=== PATIENT | male | born 1960 | race Caucasian/White ===

== ENCOUNTER 2018-03-01 00:05 | Inpatient (IN) | payer OTHER, SELFPAY ==
[2018-03-01] VITALS (30 sets, daily range): BP systolic 117–149; BP diastolic 79–102; PULSE 10–143; RESP 16–38; TEMP 36.4–37.4; O2SAT 66–96; BMI 27.3; BMI 26.7; BMI 26.8
--- NOTE | 2018-03-01 00:21 | EKG12_ITS ---
Test Reason : HIGH RR/SOB Blood Pressure : / mmHG Vent. Rate : 125 BPM Atrial Rate : 125 BPM P-R Int : 132 ms QRS Dur : 090 ms QT Int : 320 ms P-R-T Axes : 049 -18 027 degrees QTc Int : 461 ms Sinus tachycardia Otherwise normal ECG Confirmed by ANN GROVE, TIARA ([id number]), non linear editor MAURY HURTADO ([id number] on 03/03/2018 4:02:38 PM Referred By: ROBBIE Confirmed By:TIARA JUAREZ MD
--- NOTE | 2018-03-01 00:21 | RAD_ITS ---
STUDY: X-RAY CHEST REASON FOR EXAM: Male, 58 years old. Dyspnea TECHNIQUE: Single AP portable view of the chest. COMPARISON: None. FINDINGS: Diffuse reticular interstitial opacities are seen in both lungs more prominent in the lower lobes consistent with chronic interstitial lung disease. There is no demonstrated pleural abnormality. Normal size heart. Normal mediastinum and marjan. Normal visualized pulmonary arteries. Normal visualized aortic arch and descending thoracic aorta. Normal visualized thoracic spine. There is degenerative osteoarthritis of the bilateral shoulders. There is no demonstrated abnormality of the visualized soft tissue structures of the upper abdomen. RAD/Chest 1 View (Portable) IMPRESSION: Chronic interstitial lung disease. Electronically Signed: Brielle Hutchinson MD at 1:51 EDT Tel , Service support ,
--- NOTE | 2018-03-01 00:23 | ED.VISSUMM ---
- ER Visit Summary Date of Service: 03/01/18 Chief Complaint: Shortness of breath History of Present Illness: The patient is a 58 M 3 of COPD he is not on any home O2. He said he just recently quit smoking. And he has been increasingly short of breath the last 3 days since Thursday with the hot humid weather that we have been having. He denies any hemoptysis. He has never had a DVT or PE. He denies any recent travel, surgery, mobilization. He denies any leg pain or swelling. Denies any cardiac history. He has had no fever. Physical Examination: Middle-aged male mild to moderate respiratory distress. Vital signs stable blood pressure 149/89 afebrile. His O2 sat on room air was 66% with obvious significant hypoxia. Her rate was 143 and respiratory rate was 38. He is awake alert and talking however. HEENT exam unremarkable. Neck nontender. Trachea midline. No lymphadenopathy. No subcu air. Lungs coarse breath sounds bilaterally. Equal symmetrical. Expiratory wheezing throughout. Heart tachycardic rate about 140 no murmur. Chest wall is nontender. No subcu air or crepitance. Abdomen is soft and nontender. Normal bowel sounds no peritoneal signs. He is moving all 4 extremities. They are neurovascularly intact. Calves are nontender without edema or cords. Neurologically is awake and alert with no focal motor deficits. Test Results: [Chest x-ray shows a right lower lobe pneumonia. Chronic changes also consistent with COPD. Normal cardiac silhouette this is read by myself. Formal radiologist interpretation pending. EKG sinus tachycardia rate of 125. No acute signs of MS. His white count elevated 18,000 normal hemoglobin. No bands. Electrolytes are unremarkable. Creatinine is 1.38. Troponin is elevated 0.193 which may be secondary to hypoxia versus underlying cardiac etiology. Emergency Department Course and Treatment: Middle-age male is hypoxic with COPD history. He will be treated with IV Solu-Medrol and multiple DuoNeb and albuterol aerosols. Treatment Plan: We started on IV Rocephin and Zithromax for community-acquired pneumonia. He will be admitted to the hospital the hospitalist. I have already spoken to Dr. Fall. Patient has been made aware of the plan and all his test results. Disposition: Admission Impression: Acute dyspnea with hypoxia secondary to acute right lower lobe community-acquired pneumonia Acute exacerbation COPD with hypoxia Abnormal troponin secondary to hypoxia or underlying cardiac etiology This note was generated with [employer] dictation software. It may contain incorrect words, spelling, and punctuation that were not noted in review of the chart prior to signing ED Disposition - Plan for ED Patient: Chief Complaint: Shortness of Breath Referrals: Ivet Henderson DO [Primary Care Provider] -
[2018-03-01] MEDS: MethylPREDNISolone 125 MG/2 ML Vial IV (00:27)
[2018-03-01 00:31] LABS: Absolute Neutrophil Count 14.8 X10^3/uL (2.0-7.7); Basophil# 0.03 X10^3/uL; Basophil% 0.2 % (0-1); Eosinophil# 0.05 X10^3/uL; Eosinophils% 0.3 % (0-5); Hemoglobin 14.7 g/dl (13.0-16.5); Lymphocyte % 11.6 % (19-41); Mean Corpuscular Hgb 30.9 pg (27.0-32.0); Mean Corpuscular Volume 88.4 fL (80-94); Monocyte% 5.5 % (0-10); Neutrophil # 14.82 X10^3/uL (2.7-7.7); Neutrophil % 82.2 % (47-70); Platelet Count 251 K/mm3 (150-450); RBC Distribution Width CV 14.1 % (11.6-14.6); RBC Distribution Width SD 45.3 fl (35.1-43.9); Red Blood Count 4.75 M/mm3 (4.6-6.2)
[2018-03-01] MEDS: Ipratropium/Albuterol Sulfate 3 ML AMPUL.NEB INHALATION ×5 (00:38→18:51)
[2018-03-01] MEDS: Albuterol 2.5 MG/3 ML VIAL.NEB. INHALATION ×3 (00:38→21:35)
[2018-03-01 00:44] LABS: POSITIVE COUNT NO; POSITIVE DIFFERENTIAL NO; POSITIVE MORPHOLOGY NO
[2018-03-01 00:52] LABS: Anion Gap 13 (5-15); BUN 19 mg/dL (7-18); BUN/Creat Ratio 13.8 RATIO (10-20); Chloride 102 mmol/L (98-107); Creatinine, Serum 1.38 mg/dL (0.70-1.30); EST Glomerular Filtration Rate 57 mL/min (>60); Est Glom Filt Rate - Afr Amer 69 mL/min (>60); Estimated Creatinine Clearance 61.71 ml/min; Glucose 220 mg/dL (74-106); Potassium 3.4 mmol/L (3.5-5.1); Sodium Level 138 mmol/L (136-145)
[2018-03-01] MEDS: Ceftriaxone 1 GM/50 ML BAG IV (01:59)
[2018-03-01] MEDS: 0.9% Normal Saline 1,000 ML 100 ML IV ×2 (02:52→12:34)
[2018-03-01 03:06] LABS: Hematocrit 39.3 % (40-54); Mean Corp Hgb Conc 35.6 g/gl (32-36); Mean Corpuscular Hgb 31.5 pg (27.0-32.0); Mean Corpuscular Volume 88.3 fL (80-94); Mean Platelet Vol. 11.5 fl (6.2-12.0); Platelet Count 244 K/mm3 (150-450); RBC Distribution Width CV 14.1 % (11.6-14.6); RBC Distribution Width SD 44.1 fl (35.1-43.9); Red Blood Count 4.45 M/mm3 (4.6-6.2); White Blood Count 15.3 K/mm3 (4.4-11.0)
[2018-03-01 03:08] LABS: Scan Indicated on CBC? Y/N NO
[2018-03-01 03:26] LABS: ALB/GLOB Ratio 0.6 RATIO (0.9-2.4); AST(SGOT) 49 U/L (15-37); Alanine Aminotransfer ALT/SGPT 64 U/L (16-61); Albumin, Serum 2.9 g/dL (3.2-5.0); Alkaline Phosphatase 113 U/L (45-117); Anion Gap 12 (5-15); BUN 17 mg/dL (7-18); BUN/Creat Ratio 13.5 RATIO (10-20); Calcium,Total 8.6 mg/dL (8.5-10.1); Chloride 105 mmol/L (98-107); Cholesterol 148 mg/dL (200); Creatinine, Serum 1.26 mg/dL (0.70-1.30); EST Glomerular Filtration Rate 63 mL/min (>60); Est Glom Filt Rate - Afr Amer 76 mL/min (>60); Estimated Creatinine Clearance 67.59 ml/min; Globulin 4.6 g/dL (2.2-4.2); Glucose 253 mg/dL (74-106); High Density Lipoprotein 23 mg/dL; Potassium 3.4 mmol/L (3.5-5.1); Protein, Total 7.5 g/dL (6.4-8.2); Sodium Level 140 mmol/L (136-145); Triglycerides 109 mg/dL; Very Low Density Lipoprotein 22 mg/dL (5-40)
[2018-03-01 03:36] LABS: BNP,B-Type NATRIURETIC PEPTIDE 437.5 pg/mL (0-100)
--- NOTE | 2018-03-01 04:02 | HP.PCM_ITS ---
Problem List (1) Transaminitis Status: Acute (2) CAP (community acquired pneumonia) Status: Acute (3) COPD exacerbation Status: Acute (4) Elevated troponin Status: Acute History of Present Illness Date of Admission: 03/01/18 Chief Complaint: CAP The patient is a 58 year old male w/ h/o tobacco abuse is admitted for CAP. He has been SOB x weeks. However, in the past few days, he noted worsening SOB. SOB is constant and affected his ability to care for himself. He recently quitted smoking in December 2017. He has been smoking for decades. He has minimal cough. No change in the intensity or frequency of his cough. No fever or chill. Nothing made is SOB better or worse. His SOB is not associated with any other symptoms. Past Medical History Allergies Sulfa (Sulfonamide Antibiotics) Allergy (Verified 03/01/18 00:31) Unknown Home Medications: Ambulatory Orders Medication Instructions Recorded Bupropion HCl [Wellbutrin Xl] 150 mg PO DAILY 03/01/18 Fluoxetine [Prozac] 20 mg PO BID 03/01/18 Gabapentin [Neurontin] 300 mg PO BID 03/01/18 Multivit-Min/FA/Vit K/Lycopene 1 tab PO DAILY 03/01/18 [One-A-Day Men's 50 Plus Tablet] Saw [place] 500 mg PO BID 03/01/18 Surgical History: no surgical history Lives: Alone Smoking Status: Former smoker Tobacco Use: Cigarettes Alcohol: None Drugs: None - *Family History Maternal History Items: No pertinent history Review of Systems Constitutional: Denies: Chills, Fever, Weight Change HEENT: Denies: Head Aches, Sinus Congestion, Sinus Drainage Cardiovascular: Denies: Chest Pain, Palpitations Respiratory: Reports: Cough, Shortness of Breath, Shortness of breath at rest. Denies: Sputum production Gastrointestinal: Denies: Abdominal Pain, Nausea, Vomiting Genitourinary: Denies: Dysuria Musculoskeletal: Denies: Joint Pain, Joint Tenderness Skin: Denies: Rash, Wounds Neurological: Denies: Numbness, Tingling, Focal weakness Psychiatric: Denies: Anxiety, Depression, Homicidal Ideations, Suicidal Ideations Hematologic/ Lymphatic: Denies: Easy Bruising, Easy Bleeding VTE Information - Inpt Only VTE Present on Admission: No VTE Mechan Device Prophylaxis: SCD's VTE Pharm Prophylaxis ordered?: Yes Patient Problems: Active and Suspected Problems Transaminitis (Acute) CAP (community acquired pneumonia) (Acute) COPD exacerbation (Acute) Elevated troponin (Acute) - Physical Exam General: Alert, Oriented x3, Cooperative HEENT: Atraumatic, PERRLA, EOMI, Normocephalic Neck: Supple, No JVD, Negative Carotid Bruits Lungs: Diminished, Short of Breath, Wheezes Cardiovascular: Irregular Rate, Tachycardic Abdomen: Bowel Sounds Present, Soft, Non Tender Extremities: No edema, Capillary Refill Less than 3 Seconds Skin: No rashes, No breakdown Musculoskeletal: No Tenderness to Palpation of Joints or Extremities Neurological: Cranial nerves II-XII grossly intact Psych/Mental Status: Normal Affect, Appropriate Vital Signs Temp Pulse Resp BP Pulse Ox 98.5 F 111 H 27 H 129/92 H 94 03/01/18 03:28 03/01/18 03:28 03/01/18 03:28 03/01/18 03:28 03/01/18 03:28 Oxygen Flow Rate (L/min) 6 Oxygen Delivery Method Nasal Cannula Weight: 84.6 kg Body Mass Index (BMI) 26.7 Laboratory Tests Past 24 Hrs 03/01/18 03/01/18 03/01/18 02:45 02:45 02:45 WBC 15.3 H RBC 4.45 L Hgb 14.0 Hct 39.3 L MCV 88.3 MCH 31.5 MCHC 35.6 RDW 14.1 RDW Differential 44.1 H Plt Count 244 MPV 11.5 Sodium 140 Potassium 3.4 L Chloride 105 Carbon Dioxide 23.0 Anion Gap 12 BUN 17 Creatinine 1.26 Estim Creat Clear Calc 67.59 Est GFR (MDRD) Af Amer 76 Est GFR (MDRD) Non-Af 63 BUN/Creatinine Ratio 13.5 Glucose 253 H Calcium 8.6 Total Bilirubin 0.60 AST 49 H ALT 64 H Alkaline Phosphatase 113 Troponin I B-Natriuretic Peptide 437.5 H Total Protein 7.5 Albumin 2.9 L Globulin 4.6 H Albumin/Globulin Ratio 0.6 L Triglycerides 109 Cholesterol 148 LDL Cholesterol 103 VLDL Cholesterol 22 HDL Cholesterol 23 L 03/01/18 02:45 WBC RBC Hgb Hct MCV MCH MCHC RDW RDW Differential Plt Count MPV Sodium Potassium Chloride Carbon Dioxide Anion Gap BUN Creatinine Estim Creat Clear Calc Est GFR (MDRD) Af Amer Est GFR (MDRD) Non-Af BUN/Creatinine Ratio Glucose Calcium Total Bilirubin AST ALT Alkaline Phosphatase Troponin I 0.238 H B-Natriuretic Peptide Total Protein Albumin Globulin Albumin/Globulin Ratio Triglycerides Cholesterol LDL Cholesterol VLDL Cholesterol HDL Cholesterol Assessment/Plan All Active Problems Transaminitis (Acute) CAP (community acquired pneumonia) (Acute) COPD exacerbation (Acute) Elevated troponin (Acute) 58 year old male w/ h/o tobacco abuse is admitted for CAP. 1) CAP: Chest xray disclosed chronic interstitial lung disease. Leukocytosis noted. Will start ceftriaxone and azithromycin. Will also start bronchodilators and steroid. 2) COPD exacerbation: Resume solumedrol, nebs, and ceftriaxone and azithromycin. Cultures pending. 3) Elevated trops: Probably type II [place] secondary to underlying sepsis. Will follow trops. C/w medical management. Will get utox. 4) Transaminitis: Unclear etiology. Probably perfusion mediated. Will follow level and if persistent elevated, will consider workup. Monitor. 5) Prophylaxis: SCD / heparin
[2018-03-01] MEDS: Heparin Injection (Vial) 5,000 UNIT/ML VIAL 5000 UNIT SC (05:26)
[2018-03-01] MEDS: 0.9% NaCl Peripheral Flush Adult/Peds IV ×2 (05:27→22:14)
[2018-03-01 07:06] LABS: Amphetamine Urine VISTA NEGATIVE (<1000 ng/mL); Barbiturate Urine VISTA NEGATIVE (< 200 ng/mL); Benzodiazepine Urine VISTA NEGATIVE (< 200 ng/mL); Cocaine Urine VISTA NEGATIVE (< 300 ng/mL); Ecstacy Urine VISTA POSITIVE (< 500 ng/mL); Methadone Urine VISTA NEGATIVE (< 300 ng/mL); PCP Urine VISTA NEGATIVE (< 25 ng/mL); THC Urine VISTA POSITIVE (< 50 ng/mL); Vista UDS pH Range 7
[2018-03-01] MEDS: Aspirin E.C. 81 MG Tablet PO (09:44)
[2018-03-01] MEDS: Gabapentin 300 MG Capsule PO ×2 (09:44→18:07)
[2018-03-01] MEDS: buPROPion (XL) 150 MG TABLET.XL PO (09:44)
[2018-03-01] MEDS: Carvedilol 3.125 MG TABLET PO ×2 (09:44→22:14)
[2018-03-01] MEDS: FLUoxetine 20 MG Capsule PO ×2 (09:44→22:14)
[2018-03-01] MEDS: Multivitamins,Ther W-Minerals Tablet 1 TABLET PO (09:44)
--- NOTE | 2018-03-01 11:39 | ECHOD_ITS ---
Reason For Study: CAD/ASHD Procedure This was a 2D Doppler, Color Flow transthoracic echocardiogram. Exam performed portable in patient room. Left Ventricle Normal LV size. Mild eccentric left ventricular hypertrophy. Left ventricular systolic function is normal. The estimated ejection fraction is 60 %. Transmitral and pulmonary venous doppler flow suggestive of impaired relaxation of left ventricle. Transmitral diastolic flow velocities suggest mild (stage 1) diastolic dysfunction (reversed pattern). Right Ventricle Normal RV size. Normal systolic function. Atria Normal left atrium. Normal right atrium. Mitral Valve Normal mitral valve. Tricuspid Valve Normal tricuspid valve. Mild (1+) tricuspid valve insufficiency. Pulmonary artery systolic pressure is 38 mmHg. Aortic Valve Normal aortic valve. Trisinus/trileaflet aortic valve. Pulmonic Valve Normal pulmonic valve. Great Vessels Normal aortic root. The pulmonary artery is normal size. Normal inferior vena cava. Pericardium/Pleural No pericardial effusion. MMode/2D Measurements & Calculations LVIDd: 4.2 cm IVSd: 1.4 cm Ao root diam: 4.0 cm LVIDs: 2.3 cm LVPWd: 1.0 cm LA dimension: 3.3 cm FS: 46.0 % LAV(MOD-sp4): 44.3 ml LA A4 area: 17.6 cm2 RA A4 area: 15.6 cm2 Time Measurements MV dec time: 0.14 sec Doppler Measurements & Calculations MV E max virgilio: 54.3 cm/sec MV V2 max: 161.8 cm/sec MV P1/2t max virgilio: 75.7 cm/sec MV A max virgilio: 102.8 cm/sec MV max P.5 mmHg MV P1/2t: 61.2 msec MV E/A: 0.53 MV V2 mean: 76.2 cm/sec MV dec slope: 362.0 cm/sec2 MV mean P.8 mmHg MVA(P1/2t): 3.6 cm2 MV V2 VTI: 21.2 cm Ao V2 max: 164.4 cm/sec LV V1 max: 118.7 cm/sec PA V2 max: 89.1 cm/sec Ao max P.8 mmHg LV V1 max P.6 mmHg Ao V2 mean: 109.9 cm/sec LV V1 mean P.9 mmHg Ao mean P.4 mmHg LV V1 mean: 79.3 cm/sec Ao V2 VTI: 23.7 cm LV V1 VTI: 20.4 cm TR max virgilio: 289.4 cm/sec TR max P.5 mmHg Interpretation Summary Normal LV size. Mild eccentric left ventricular hypertrophy. Left ventricular systolic function is normal. The estimated ejection fraction is 60 %. Transmitral diastolic flow velocities suggest mild (stage 1) diastolic dysfunction (reversed pattern). Pulmonary artery systolic pressure is 38 mmHg. Ordering Physician: Emily Erazo Referring Physician: [place] MURRAY Performed By: Jeff Dee RCS
[2018-03-01 12:02] LABS: Magnesium 2.1 mg/dL (1.6-2.6)
[2018-03-01 12:23] LABS: Hemoglobin A1c 5.9 % (4.2-6.3)
--- NOTE | 2018-03-01 12:49 | CON.PCM_ITS ---
Reason for Consult Date of Consultation: 03/01/18 Reason for Consultation: Shortness of breath and abnormal cardiac enzymes History of Present Illness: The patient is a 58 year old M with a previous history of obstructive lung disease tobacco use who presented to the emergency room with shortness of breath which had been going on over the preceding few days. He had denied any chest pain but had repeated coughs and had been put on steroids. He presented to the emergency room and was noted to have abnormal chest x-ray as well as the abnormal troponins and cardiology was called to see him. At this time he appears to be short of breath but has not had any chest pain no dizziness no diaphoresis no near syncope or syncope. [] Past Medical History Allergies/Adverse Reactions: Allergies Sulfa (Sulfonamide Antibiotics) Allergy (Verified 03/01/18 00:31) Unknown Home Medications: Ambulatory Orders Medication Instructions Recorded Bupropion HCl [Wellbutrin Xl] 150 mg PO DAILY 03/01/18 Fluoxetine [Prozac] 20 mg PO BID 03/01/18 Gabapentin [Neurontin] 300 mg PO BID 03/01/18 Multivit-Min/FA/Vit K/Lycopene 1 tab PO DAILY 03/01/18 [One-A-Day Men's 50 Plus Tablet] Saw [place] 500 mg PO BID 03/01/18 Surgical History: no surgical history - *Family History Maternal History Items: No pertinent history Lives: Alone Smoking Status: Former smoker Tobacco Use: Cigarettes Alcohol: None Drugs: None Review of Systems - Review of Systems General: Reports: Fatigue. Denies: Fever, Night Sweats Cardiovascular: Reports: Shortness of Breath, Shortness of Breath at Rest, Shortness of Breath with Exertion. Denies: Chest Discomfort, Orthopnea, PND, Peripheral Edema, Palpitations, Lightheadedness, Dizziness, Near Syncope, Syncope Respiratory: Reports: Cough. Denies: Sputum Production, Hemoptysis Gastrointestinal: Denies: Hematemesis, Hematochezia, Melena Genitourinary: Denies: Dysuria, Hematuria Skin: Denies: Rash Subjectve: Middle aged man Objective: Vital Signs Temp Pulse Resp BP Pulse Ox 98.1 F 110 H 16 143/87 H 96 03/01/18 09:35 03/01/18 10:59 03/01/18 10:30 03/01/18 09:35 03/01/18 09:35 Oxygen Flow Rate (L/min) 5 Oxygen Delivery Method Nasal Cannula Weight: 186 lb 8.177 oz Body Mass Index (BMI) 26.7 Intake and Output for Last 24 Hours 02/27/18 02/28/18 03/01/18 23:59 23:59 23:59 Intake Total 1701 / 1701 Output Total 225 / 225 Balance 1476 / 1476 General: Alert, Oriented x 3, Ill Appearing HEENT: PERRL, EOMI, Sclera Non Icteric Neck: Supple, Good ROM, No Lymph Node Enlargement Lungs: Clear to auscultation Cardiovascular: Regular Rhythm, Normal S1, Normal S2, No Murmurs, No Rubs, No Gallops Vascular: No Carotid Bruits, Normal Femoral Pulses, Normal Radial Pulses, Normal Dorsalis Pedal Pulse, Normal Posterior Tibial Pulses Abdomen: Bowel Sounds Present, Soft, Non Tender, No HSM, No Organomegaly Extremities: No Cyanosis, No Clubbing, No edema Neurological: No Focal Motor or Sensory Deficit 03/01/18 02:45: WBC 15.3 H, RBC 4.45 L, Hgb 14.0, Hct 39.3 L, MCV 88.3, MCH 31.5 , MCHC 35.6, RDW 14.1, RDW Differential 44.1 H, Plt Count 244, MPV 11.5 03/01/18 02:45: Sodium 140, Potassium 3.4 L, Chloride 105, Carbon Dioxide 23.0, Anion Gap 12, BUN 17, Creatinine 1.26, Est GFR (MDRD) Af Amer 76, Est GFR (MDRD ) Non-Af 63, BUN/Creatinine Ratio 13.5, Glucose 253 H, Calcium 8.6, Total Bilirubin 0.60, Triglycerides 109, Cholesterol 148, LDL Cholesterol 103, VLDL Cholesterol 22, HDL Cholesterol 23 L 03/01/18 02:45: B-Natriuretic Peptide 437.5 H 03/01/18 02:45: Troponin I 0.238 H 03/01/18 06:15: Troponin I 0.144 H 03/01/18 06:15: Magnesium 2.1 Rhythm: EKG: Normal sinus rhythm with no acute changes Assessment/Plan 1. Abnormal cardiac enzymes. He has mildly abnormal cardiac enzymes suggesting likely underlying coronary artery disease. The above is likely exacerbated by his current respiratory condition. My recommendation will be to obtain an echocardiogram to assess his left ventricular function and improve his respiratory status and then a decision will be made as to what definitive therapy would be undertaken. In the meantime he will be started on aspirin as well as a statin. 2. Shortness of breath. The etiology of his shortness of breath is unclear to me at this particular time. He does have evidence of reticular nodular pattern on his chest x-ray as well as abnormal natruretic peptide level. I would recommend once again that we obtain an echocardiogram to assess his left ventricular function in the meantime I will suggest diuresing him with intravenous Lasix aggressively. Thank you for allowing me to participate in the care of your patient. Please don't hesitate to call if any issues arise
--- NOTE | 2018-03-01 12:53 | PCM.PN.HOSP ---
Patient Problems: Active and Suspected Problems Transaminitis (Acute) CAP (community acquired pneumonia) (Acute) COPD exacerbation (Acute) Elevated troponin (Acute) Subjective: Patient notes feeling improved since initial presentation with less wheezing. He never had remarkable coughing but did note severe dyspnea with any exertional attempts. He states that he does have less dyspnea with exertion but still with increased conversational attempts and even ambulating to the bathroom does feel short of breath. Discussed presentation with elevated cardiac enzymes and patient amenable to echocardiogram and evaluation per cardiology. Patient denies fevers, chills, nausea, emesis, abdominal pain, chest pain or worsened dyspnea. Objective: Physical Examination: General: awake, alert, oriented x 3 and cooperative, seated upright in bed, no acute distress but w/ attempts at conversation does become conversationally dyspneic. Skin: normal color, turgor, no icterus, cyanosis. HEENT: AT/NC, EOMI, PERRLA, mildly dry MM. Lungs: Diminished BS throughout, notable conversation dyspnea, some accessory muscle usage, improves w/ rest, no rales, ronchi or wheezing. Heart: Regular rate and rhythm; no gallop, rub audible. Abdomen: soft, NTTP, ND, normal BS, no HSM. Extremities: no cyanosis, clubbing, or edema. Neurological: patient awake, alert, oriented x 3; cognitive function intact; pupils equally reactive to light and accomodation; cranial nerves II-XII grossly normal, moving all 4 extremities, no focal deficits, strength severely globally decreased secondary to acute presentation. Psychiatric: affect appears normal, no acute evidence of depressive or anxiety feelings. Vitals/I&O's: Vital Signs Temp Pulse Resp BP Pulse Ox 98.1 F 110 H 16 143/87 H 96 03/01/18 09:35 03/01/18 10:59 03/01/18 10:30 03/01/18 09:35 03/01/18 09:35 Oxygen Flow Rate (L/min) 5 Oxygen Delivery Method Nasal Cannula Weight: 186 lb 8.177 oz Body Mass Index (BMI) 26.7 Intake and Output for Last 24 Hours 02/27/18 02/28/18 03/01/18 23:59 23:59 23:59 Intake Total 1701 / 1701 Output Total 225 / 225 Balance 1476 / 1476 Microbiology Past 72 Hours 03/01/18 03:50 Mucosa - Nasopharyngeal Influenza Types A,B Direct FA (REYNA) - Final Laboratory Results 03/01/18 02:45: WBC 15.3 H, RBC 4.45 L, Hgb 14.0, Hct 39.3 L, MCV 88.3, MCH 31.5, MCHC 35.6, RDW 14.1, RDW Differential 44.1 H, Plt Count 244, MPV 11.5 03/01/18 02:45: Sodium 140, Potassium 3.4 L, Chloride 105, Carbon Dioxide 23.0, Anion Gap 12, BUN 17, Creatinine 1.26, Estim Creat Clear Calc 67.59, Est GFR (MDRD) Af Amer 76, Est GFR (MDRD) Non-Af 63, BUN/Creatinine Ratio 13.5, Glucose 253 H, Calcium 8.6, Total Bilirubin 0.60, AST 49 H, ALT 64 H, Alkaline Phosphatase 113, Total Protein 7.5, Albumin 2.9 L, Globulin 4.6 H, Albumin/Globulin Ratio 0.6 L, Triglycerides 109, Cholesterol 148, LDL Cholesterol 103, VLDL Cholesterol 22, HDL Cholesterol 23 L 03/01/18 02:45: B-Natriuretic Peptide 437.5 H 03/01/18 02:45: Troponin I 0.238 H 03/01/18 06:15: Troponin I 0.144 H 03/01/18 06:15: Magnesium 2.1 03/01/18 06:38: Urine Opiates Screen NEGATIVE, Urine Methadone Screen NEGATIVE, Ur Barbiturates Screen NEGATIVE, Ur Phencyclidine Scrn NEGATIVE, Ur Amphetamines Screen NEGATIVE, U Methamphetamin-MDMA POSITIVE H, U Benzodiazepines Scrn NEGATIVE, Urine Cocaine Screen NEGATIVE, U Cannabinoids Screen POSITIVE H, Ur Drug Screen Comment Current Medications Albuterol Sulfate (Ventolin Aerosols) 2.5 mg INHALATION Q2H PRN Albuterol/Ipratropium (Duoneb) 3 ml INHALATION Q4H.RT [facility] Last Admin: 03/01/18 10:30 Dose: 3 ml Aspirin (Ecotrin) 81 mg PO DAILY@0800 [facility] Last Admin: 03/01/18 09:44 Dose: 81 mg Bupropion HCl (Wellbutrin Xl) 150 mg PO DAILY [facility] Last Admin: 03/01/18 09:44 Dose: 150 mg Carvedilol (Coreg) 3.125 mg PO BID [facility] Last Admin: 03/01/18 09:44 Dose: 3.125 mg Enoxaparin Sodium (Lovenox) 40 mg SC DAILY@0600 [facility] Fluoxetine HCl (Prozac) 20 mg PO BID [facility] Last Admin: 03/01/18 09:44 Dose: 20 mg Furosemide (Lasix) 40 mg PO BID@1000,1800 [facility]) [facility] Last Admin: 03/01/18 09:44 Dose: 300 mg Ceftriaxone Sodium (Rocephin) 1 gm in 50 mls @ 100 mls/hr IV Q24 [facility] Azithromycin 500 mg/ Dextrose 255 mls @ 250 mls/hr IV Q24 [facility] Stop: 03/03/18 11:02 Last Admin: 03/01/18 09:44 Dose: 250 mls/hr Methylprednisolone (Solu-Medrol) 40 mg IV Q8 [facility] Multivitamins/Minerals (Multivitamin With Minerals) [facility] Last Admin: 03/01/18 09:44 Dose: 1 tablet Nutritional Formula (Lactose Free) (Ensure Enlive) 120 ml PO 4X/DAY [facility] Last Admin: 03/01/18 09:44 Dose: 120 ml Pravastatin Sodium (Pravachol) 20 mg PO QHS [facility] Sodium Chloride () 5 - 30 ml IV UD PRN PRN Reason: SALINE FLUSH Last Admin: 03/01/18 05:27 Dose: 20 ml Medical Necessity - Tobacco Use Smoking Status: Former smoker Tobacco Use: Cigarettes Assessment/Plan All Active Problems Transaminitis (Acute) CAP (community acquired pneumonia) (Acute) COPD exacerbation (Acute) Elevated troponin (Acute) The patient is a 58 y/o M w/ PMHx: Anxiety and Depression, History of Tobacco use, Suspected Chronic COPD, BPH, Chronic Neuropathy who presents to the [facility] ED on 03/01/18 with history of ongoing dyspnea, wheezing, unable to catch his breath over the last several days, worsening. (1) Acute Hypoxic Respiratory Failure secondary to Acute on Suspected Chronic COPD exacerbation w/ CAP: CXR w/ chronic changes, CBC on admission w/ WBC 18 with L shift. Increased work of breathing, accessory muscle usage, conversational dyspnea present upon evaluation. Admitted to PCU, maintain on oxygen with wean as tolerated to room air, continue ATC duonebs, PRN albuterol, IV methylprednisolone w/ possible prednisone transition in AM, HOB, IS parameters, IV Azithromcyin and Rocephin with pending sputum cultures, pending urine antigens, pending respiratory panel. Negative ED influenza. (2) Elevated Cardiac Enzymes: EKG in ED w/ no acute evidence of ischemia, CXR w/ chronic interstitial lung disease. Trop elevated, 0.193. Will maintain on a monitored bed, serial cardiac enzymes w/ 0.193-->0.238-->0.144. Magnesium 2.1. Continue medical management w/ addition asa, statin w/ AM FLP. Cardiology consulted. ASA, NG, morphine. (3) Hypokalemia: Admission K+ 3.4, supplementation given, repeat level in AM. (4) Hyperglycemia: Admission glucose 253, HgBA1c obtained 5.9%. (5) Mildly Elevated LFTs: Admission AST/ALT 49/64, Hepatitis panel and liver US pending, repeat CMP in AM, possible stress response, hydrating. (6) Anxiety and Depression: Maintain on home regimen wellbutrin, prozac. (7) ? Polysubstance Use: UDS w/ cannabis, encourage cessation. UDS also + MDMA/meth, on wellbutrin. (8) DVT Prophylaxis: SCDs, lovenox. ADDITIONAL: Prolonged care time above initial 70 minutes evaluation, prolonged care time: 65 minutes for evaluation, review of all testing, discussion with patient and Cardiology regarding suspected underlying coronary disease component being exacerbation by his current acute pulmonary presentation. Code Visit Procedures: 25855 Prolonged InPt Service; first hour
--- NOTE | 2018-03-01 12:57 | US_ITS ---
STUDY: ABDOMINAL ULTRASOUND - RIGHT UPPER QUADRANT REASON FOR VISIT: Male, 58 years old. Abnormal labs. TECHNIQUE: Ultrasound evaluation of the right upper quadrant was performed with real-time and static dillard-scale imaging. TECHNICAL QUALITY: Limited. Examination limited due to a combination of factors including obesity and bowel gas. COMPARISON: None. FINDINGS: Liver: The liver measures 15.8 cm. There is normal echogenicity of the liver. The bile ducts are within normal limits. There is hepatic color flow. The direction of portal flow is hepatopetal. There is no demonstrated mass lesion. Gallbladder: Normal distended gallbladder. The gallbladder wall measures 2 mm. There is a negative sonographic Welsh's sign. There is no pericholecystic fluid. There are no gallstones. Common Bile Duct (C.B.D.): The common bile duct measures 4 mm. Pancreas: Normal size of the head, body of the pancreas. Tail of the pancreas is suboptimally seen. There is normal echogenicity of the pancreas. There is no demonstrated pancreatic mass or cyst. Right Kidney: Normal size of the right kidney. The right kidney measures 10.1 cm. Normal renal cortex. The right cortex measures 1.4 cm. There is no demonstrated renal mass or cyst. There is no right hydronephrosis. US/Liver IMPRESSION: Normal right upper quadrant ultrasound examination. Electronically Signed: Kwasi Corey MD at 20:28 EDT , Service support ,
--- NOTE | 2018-03-01 13:06 | PN_ITS ---
Patient Problems: Active and Suspected Problems Transaminitis (Acute) CAP (community acquired pneumonia) (Acute) COPD exacerbation (Acute) Elevated troponin (Acute) Subjective: Patient notes feeling improved since initial presentation with less wheezing. He never had remarkable coughing but did note severe dyspnea with any exertional attempts. He states that he does have less dyspnea with exertion but still with increased conversational attempts and even ambulating to the bathroom does feel short of breath. Discussed presentation with elevated cardiac enzymes and patient amenable to echocardiogram and evaluation per cardiology. Patient denies fevers, chills, nausea, emesis, abdominal pain, chest pain or worsened dyspnea. Objective: Physical Examination: General: awake, alert, oriented x 3 and cooperative, seated upright in bed, no acute distress but w/ attempts at conversation does become conversationally dyspneic. Skin: normal color, turgor, no icterus, cyanosis. HEENT: AT/NC, EOMI, PERRLA, mildly dry MM. Lungs: Diminished BS throughout, notable conversation dyspnea, some accessory muscle usage, improves w/ rest, no rales, ronchi or wheezing. Heart: Regular rate and rhythm; no gallop, rub audible. Abdomen: soft, NTTP, ND, normal BS, no HSM. Extremities: no cyanosis, clubbing, or edema. Neurological: patient awake, alert, oriented x 3; cognitive function intact; pupils equally reactive to light and accomodation; cranial nerves II-XII grossly normal, moving all 4 extremities, no focal deficits, strength severely globally decreased secondary to acute presentation. Psychiatric: affect appears normal, no acute evidence of depressive or anxiety feelings. Vitals/I&O's: Vital Signs Temp Pulse Resp BP Pulse Ox 98.1 F 110 H 16 143/87 H 96 03/01/18 09:35 03/01/18 10:59 03/01/18 10:30 03/01/18 09:35 03/01/18 09:35 Oxygen Flow Rate (L/min) 5 Oxygen Delivery Method Nasal Cannula Weight: 186 lb 8.177 oz Body Mass Index (BMI) 26.7 Intake and Output for Last 24 Hours 02/27/18 02/28/18 03/01/18 23:59 23:59 23:59 Intake Total 1701 / 1701 Output Total 225 / 225 Balance 1476 / 1476 Microbiology Past 72 Hours 03/01/18 03:50 Mucosa - Nasopharyngeal Influenza Types A,B Direct FA (REYNA) - Final Laboratory Results 03/01/18 02:45: WBC 15.3 H, RBC 4.45 L, Hgb 14.0, Hct 39.3 L, MCV 88.3, MCH 31.5 , MCHC 35.6, RDW 14.1, RDW Differential 44.1 H, Plt Count 244, MPV 11.5 03/01/18 02:45: Sodium 140, Potassium 3.4 L, Chloride 105, Carbon Dioxide 23.0, Anion Gap 12, BUN 17, Creatinine 1.26, Estim Creat Clear Calc 67.59, Est GFR ( MDRD) Af Amer 76, Est GFR (MDRD) Non-Af 63, BUN/Creatinine Ratio 13.5, Glucose 253 H, Calcium 8.6, Total Bilirubin 0.60, AST 49 H, ALT 64 H, Alkaline Phosphatase 113, Total Protein 7.5, Albumin 2.9 L, Globulin 4.6 H, Albumin/ Globulin Ratio 0.6 L, Triglycerides 109, Cholesterol 148, LDL Cholesterol 103, VLDL Cholesterol 22, HDL Cholesterol 23 L 03/01/18 02:45: B-Natriuretic Peptide 437.5 H 03/01/18 02:45: Troponin I 0.238 H 03/01/18 06:15: Troponin I 0.144 H 03/01/18 06:15: Magnesium 2.1 03/01/18 06:38: Urine Opiates Screen NEGATIVE, Urine Methadone Screen NEGATIVE, Ur Barbiturates Screen NEGATIVE, Ur Phencyclidine Scrn NEGATIVE, Ur Amphetamines Screen NEGATIVE, U Methamphetamin-MDMA POSITIVE H, U Benzodiazepines Scrn NEGATIVE, Urine Cocaine Screen NEGATIVE, U Cannabinoids Screen POSITIVE H, Ur Drug Screen Comment Current Medications Albuterol Sulfate (Ventolin Aerosols) 2.5 mg INHALATION Q2H PRN Albuterol/Ipratropium (Duoneb) 3 ml INHALATION Q4H.RT [facility] Last Admin: 03/01/18 10:30 Dose: 3 ml Aspirin (Ecotrin) 81 mg PO DAILY@0800 [facility] Last Admin: 03/01/18 09:44 Dose: 81 mg Bupropion HCl (Wellbutrin Xl) 150 mg PO DAILY [facility] Last Admin: 03/01/18 09:44 Dose: 150 mg Carvedilol (Coreg) 3.125 mg PO BID [facility] Last Admin: 03/01/18 09:44 Dose: 3.125 mg Enoxaparin Sodium (Lovenox) 40 mg SC DAILY@0600 [facility] Fluoxetine HCl (Prozac) 20 mg PO BID [facility] Last Admin: 03/01/18 09:44 Dose: 20 mg Furosemide (Lasix) 40 mg PO BID@1000,1800 [facility]: 03/01/18 09:44 Dose: 300 mg Ceftriaxone Sodium (Rocephin) 1 gm in 50 mls @ 100 mls/hr IV Q24 [facility] Azithromycin 500 mg/ Dextrose 255 mls @ 250 mls/hr IV Q24 [facility] Stop: 03/03/18 11:02 Last Admin: 03/01/18 09:44 Dose: 250 mls/hr Methylprednisolone (Solu-Medrol) 40 mg IV Q8 [facility] Multivitamins/Minerals ([facility]ivitamin With Minerals) [facility] Last Admin: 03/01/18 09:44 Dose: 1 tablet Nutritional Formula (Lactose Free) (Ensure Enlive) 120 ml PO 4X/DAY [facility] Last Admin: 03/01/18 09:44 Dose: 120 ml Pravastatin Sodium (Pravachol) 20 mg PO QHS [facility] Sodium Chloride () 5 - 30 ml IV UD PRN PRN Reason: SALINE FLUSH Last Admin: 03/01/18 05:27 Dose: 20 ml Medical Necessity - Tobacco Use Smoking Status: Former smoker Tobacco Use: Cigarettes Assessment/Plan All Active Problems Transaminitis (Acute) CAP (community acquired pneumonia) (Acute) COPD exacerbation (Acute) Elevated troponin (Acute) The patient is a 58 y/o M w/ PMHx: Anxiety and Depression, History of Tobacco use, Suspected Chronic COPD, BPH, Chronic Neuropathy who presents to the [facility] ED on 03/01/18 with history of ongoing dyspnea, wheezing, unable to catch his breath over the last several days, worsening. (1) Acute Hypoxic Respiratory Failure secondary to Acute on Suspected Chronic COPD exacerbation w/ CAP: CXR w/ chronic changes, CBC on admission w/ WBC 18 with L shift. Increased work of breathing, accessory muscle usage, conversational dyspnea present upon evaluation. Admitted to PCU, maintain on oxygen with wean as tolerated to room air, continue ATC duonebs, PRN albuterol, IV methylprednisolone w/ possible prednisone transition in AM, HOB, IS parameters, IV Azithromcyin and Rocephin with pending sputum cultures, pending urine antigens, pending respiratory panel. Negative ED influenza. (2) Elevated Cardiac Enzymes: EKG in ED w/ no acute evidence of ischemia, CXR w / chronic interstitial lung disease. Trop elevated, 0.193. Will maintain on a monitored bed, serial cardiac enzymes w/ 0.193-->0.238-->0.144. Magnesium 2.1. Continue medical management w/ addition asa, statin w/ AM FLP. Cardiology consulted. ASA, NG, morphine. (3) Hypokalemia: Admission K+ 3.4, supplementation given, repeat level in AM. (4) Hyperglycemia: Admission glucose 253, HgBA1c obtained 5.9%. (5) Mildly Elevated LFTs: Admission AST/ALT 49/64, Hepatitis panel and liver US pending, repeat CMP in AM, possible stress response, hydrating. (6) Anxiety and Depression: Maintain on home regimen wellbutrin, prozac. (7) ? Polysubstance Use: UDS w/ cannabis, encourage cessation. UDS also + MDMA/ meth, on wellbutrin. (8) DVT Prophylaxis: SCDs, lovenox. ADDITIONAL: Prolonged care time above initial 70 minutes evaluation, prolonged care time: 65 minutes for evaluation, review of all testing, discussion with patient and Cardiology regarding suspected underlying coronary disease component being exacerbation by his current acute pulmonary presentation. Code Visit Procedures: 48705 Prolonged InPt Service; first hour
--- NOTE | 2018-03-01 13:40 | CASEMGMT ---
See RN CM Assessment link. DC Plan Home on discharge. Pt wearing 4-5L NC presently. May need home oxygen assessment prior to discharge. Pt has [employer] PPO. InNetwork DME include: [facility]. Awais LAURAN RN ACM
[2018-03-01] MEDS: Furosemide 40 MG/4 ML Vial IV (14:06)
[2018-03-01] MEDS: Furosemide 40 MG Tablet PO (18:07)
[2018-03-01] MEDS: Atorvastatin Calcium 80 MG Tablet PO (22:20)
[2018-03-02] VITALS (16 sets, daily range): BP systolic 115–140; BP diastolic 59–85; PULSE 72–117; RESP 16–23; TEMP 36.4–36.9; O2SAT 91–97
[2018-03-02] MEDS: Zolpidem Tartrate 5 MG Tablet PO ×2 (00:20→20:56)
[2018-03-02] MEDS: Enoxaparin 40 MG/0.4 ML Syringe SC (05:29)
[2018-03-02] MEDS: 0.9% NaCl Peripheral Flush Adult/Peds IV ×2 (05:29→10:03)
--- NOTE | 2018-03-02 05:55 | EKG12_ITS ---
Test Reason : AM Blood Pressure : / mmHG Vent. Rate : 077 BPM Atrial Rate : 077 BPM P-R Int : 134 ms QRS Dur : 088 ms QT Int : 414 ms P-R-T Axes : 058 013 -10 degrees QTc Int : 468 ms Normal sinus rhythm Normal ECG When compared with ECG of 01-MAR-2018 00:18, MANUAL COMPARISON REQUIRED, DATA IS UNCONFIRMED Confirmed by ANN GROVE, TIARA ([id number]), photographic editor MAURY HURTADO ([id number]) on 03/04/2018 10:13:27 AM Referred By: GARLAND Confirmed By:TIARA JUAREZ MD
--- NOTE | 2018-03-02 05:59 | RAD_ITS ---
STUDY: X-RAY CHEST REASON FOR EXAM: Male, 58 years old. Shortness of breath. TECHNIQUE: PA and lateral views of the chest. COMPARISON: Comparison is made with prior study dated March 01, 2018. FINDINGS: EKG electrodes are seen. Stable appearance of both lungs with evidence of diffuse reticular interstitial opacities suggestive of chronic interstitial fibrosis. There is no demonstrated pleural abnormality. Normal size heart. Normal mediastinum and marjan. Normal visualized pulmonary arteries. Normal visualized aortic arch and descending thoracic aorta. Normal visualized thoracic spine. Normal visualized ribs, clavicles, and shoulders. There is no demonstrated abnormality of the visualized soft tissue structures of the upper abdomen. RAD/Chest PA and Lateral IMPRESSION: Stable examination. Electronically Signed: Efrain Urbano MD at 11:11 EDT Tel [phone], Service support ,
[2018-03-02 06:11] LABS: Absolute Lymphocyte Count 1.45 X10^3/ul (0.83-4.51); Absolute Neutrophil Count 17.9 X10^3/uL (2.0-7.7); Basophil# 0.01 X10^3/uL; Eosinophil# 0.03 X10^3/uL; Eosinophils% 0.1 % (0-5); Hematocrit 39.3 % (40-54); Hemoglobin 13.5 g/dl (13.0-16.5); Lymphocyte # 1.45 X10^3/ul (4.0); Lymphocyte % 7.2 % (19-41); Mean Corp Hgb Conc 34.4 g/gl (32-36); Mean Corpuscular Hgb 31.1 pg (27.0-32.0); Mean Corpuscular Volume 90.6 fL (80-94); Monocyte# 0.78 X10^3/uL; Monocyte% 3.9 % (0-10); Neutrophil % 88.6 % (47-70); Platelet Count 292 K/mm3 (150-450); RBC Distribution Width CV 14.3 % (11.6-14.6); RBC Distribution Width SD 46.2 fl (35.1-43.9); Red Blood Count 4.34 M/mm3 (4.6-6.2); White Blood Count 20.2 K/mm3 (4.4-11.0)
[2018-03-02 06:15] LABS: POSITIVE COUNT NO; POSITIVE DIFFERENTIAL NO; POSITIVE MORPHOLOGY NO
[2018-03-02 06:21] LABS: AST(SGOT) 57 U/L (15-37); Alanine Aminotransfer ALT/SGPT 83 U/L (16-61); Albumin, Serum 2.8 g/dL (3.2-5.0); Alkaline Phosphatase 95 U/L (45-117); Anion Gap 8 (5-15); BUN 28 mg/dL (7-18); BUN/Creat Ratio 24.8 RATIO (10-20); Bilirubin, Direct 0.17 mg/dL (0.00-0.30); Calcium,Total 8.9 mg/dL (8.5-10.1); Chloride 104 mmol/L (98-107); Creatinine, Serum 1.13 mg/dL (0.70-1.30); EST Glomerular Filtration Rate 71 mL/min (>60); Est Glom Filt Rate - Afr Amer 86 mL/min (>60); Estimated Creatinine Clearance 75.37 ml/min; Globulin 4.7 g/dL (2.2-4.2); Glucose 142 mg/dL (74-106); Potassium 4.5 mmol/L (3.5-5.1); Protein, Total 7.5 g/dL (6.4-8.2); Sodium Level 139 mmol/L (136-145)
[2018-03-02] MEDS: Ipratropium/Albuterol Sulfate 3 ML AMPUL.NEB INHALATION ×4 (07:19→18:48)
--- NOTE | 2018-03-02 07:29 | PCM.PN.CARD ---
Subjectve: The patient was seen and evaluated. Appears to be breathing better. Did diurese overnight. Objective: Vital Signs Temp Pulse Resp BP Pulse Ox 97.6 F L 117 H 23 H 115/59 L 97 03/02/18 04:23 03/02/18 06:54 03/02/18 04:23 03/02/18 04:23 03/02/18 04:23 Oxygen Flow Rate (L/min) 12 Oxygen Delivery Method Venturi Mask Weight: 186 lb 8.177 oz Body Mass Index (BMI) 26.7 Intake and Output for Last 24 Hours 02/28/18 03/01/18 03/02/18 23:59 23:59 23:59 Intake Total 2485 / 2485 350 / 350 Output Total 1700 / 1700 Balance 785 / 785 350 / 350 General: Awake, Alert, Oriented x 3 HEENT: PERRL, EOMI, Sclera Non Icteric Neck: Supple, Good ROM, No Lymph Node Enlargement Lungs: Clear to auscultation Cardiovascular: Regular Rhythm, Normal S1, Normal S2, No Murmurs, No Rubs, No Gallops Vascular: No Carotid Bruits, Normal Femoral Pulses, Normal Radial Pulses, Normal Dorsalis Pedal Pulse, Normal Posterior Tibial Pulses Abdomen: Bowel Sounds Present, Soft, Non Tender, No HSM, No Organomegaly Extremities: No Cyanosis, No Clubbing, No edema Neurological: No Focal Motor or Sensory Deficit 03/01/18 06:15: Magnesium 2.1 03/02/18 05:12: WBC 20.2 H, RBC 4.34 L, Hgb 13.5, Hct 39.3 L, MCV 90.6, MCH 31.1, MCHC 34.4, RDW 14.3, RDW Differential 46.2 H, Plt Count 292, MPV 12.0, Immature Gran % (Auto) 0.200, Neut % (Auto) 88.6 H, Lymph % (Auto) 7.2 L, [place] % (Auto) 3.9, Eos % (Auto) 0.1, Baso % (Auto) 0.0, Absolute Neuts (auto) 17.9 H, Total Counted Not Reportable 03/02/18 05:12: Sodium 139, Potassium 4.5, Chloride 104, Carbon Dioxide 27.0, Anion Gap 8, BUN 28 H, Creatinine 1.13, Est GFR (MDRD) Af Amer 86, Est GFR (MDRD) Non-Af 71, BUN/Creatinine Ratio 24.8 H, Glucose 142 H, Calcium 8.9, Total Bilirubin 0.70, Direct Bilirubin 0.17 Rhythm: EKG: ECHO: Stress Test: Cardiac Cath: PCI: CT Surgery: Holter monitor: EPS: PPM: CXR: Chest CT Scan: Medical Necessity - Tobacco Use Smoking Status: Former smoker Tobacco Use: Cigarettes Assessment/Plan 1. Abnormal cardiac enzymes. He has mildly abnormal cardiac enzymes suggesting likely underlying coronary artery disease. The above is likely exacerbated by his current respiratory condition. His echocardiogram demonstrated overall preserved left ventricular systolic function. I suspect the above is likely secondary to demand ischemia. I would like to see how he does over the course of the day and perhaps a stress test can be performed prior to his discharge. 2. Shortness of breath. The etiology of his shortness of breath is unclear to me at this particular time. More is related to congestive heart failure. He does have evidence of reticular nodular pattern on his chest x-ray as well as abnormal natruretic peptide level. His echocardiogram demonstrated overall preserved left ventricular systolic function. The above is likely secondary to diastolic dysfunction. Would like to see how he does with minimal oxygen today. Discontinue albuterol nebulizer. Thank you for allowing me to participate in the care of your patient. Please don't hesitate to call if any issues arise
--- NOTE | 2018-03-02 07:32 | PN.CARD_ITS ---
Subjectve: The patient was seen and evaluated. Appears to be breathing better. Did diurese overnight. Objective: Vital Signs Temp Pulse Resp BP Pulse Ox 97.6 F L 117 H 23 H 115/59 L 97 03/02/18 04:23 03/02/18 06:54 03/02/18 04:23 03/02/18 04:23 03/02/18 04:23 Oxygen Flow Rate (L/min) 12 Oxygen Delivery Method Venturi Mask Weight: 186 lb 8.177 oz Body Mass Index (BMI) 26.7 Intake and Output for Last 24 Hours 02/28/18 03/01/18 03/02/18 23:59 23:59 23:59 Intake Total 2485 / 2485 350 / 350 Output Total 1700 / 1700 Balance 785 / 785 350 / 350 General: Awake, Alert, Oriented x 3 HEENT: PERRL, EOMI, Sclera Non Icteric Neck: Supple, Good ROM, No Lymph Node Enlargement Lungs: Clear to auscultation Cardiovascular: Regular Rhythm, Normal S1, Normal S2, No Murmurs, No Rubs, No Gallops Vascular: No Carotid Bruits, Normal Femoral Pulses, Normal Radial Pulses, Normal Dorsalis Pedal Pulse, Normal Posterior Tibial Pulses Abdomen: Bowel Sounds Present, Soft, Non Tender, No HSM, No Organomegaly Extremities: No Cyanosis, No Clubbing, No edema Neurological: No Focal Motor or Sensory Deficit 03/01/18 06:15: Magnesium 2.1 03/02/18 05:12: WBC 20.2 H, RBC 4.34 L, Hgb 13.5, Hct 39.3 L, MCV 90.6, MCH 31.1 , MCHC 34.4, RDW 14.3, RDW Differential 46.2 H, Plt Count 292, MPV 12.0, Immature Gran % (Auto) 0.200, Neut % (Auto) 88.6 H, Lymph % (Auto) 7.2 L, [place] % (Auto) 3.9, Eos % (Auto) 0.1, Baso % (Auto) 0.0, Absolute Neuts (auto) 17.9 H , Total Counted Not Reportable 03/02/18 05:12: Sodium 139, Potassium 4.5, Chloride 104, Carbon Dioxide 27.0, Anion Gap 8, BUN 28 H, Creatinine 1.13, Est GFR (MDRD) Af Amer 86, Est GFR (MDRD ) Non-Af 71, BUN/Creatinine Ratio 24.8 H, Glucose 142 H, Calcium 8.9, Total Bilirubin 0.70, Direct Bilirubin 0.17 Rhythm: EKG: ECHO: Stress Test: Cardiac Cath: PCI: CT Surgery: Holter monitor: EPS: PPM: CXR: Chest CT Scan: Medical Necessity - Tobacco Use Smoking Status: Former smoker Tobacco Use: Cigarettes Assessment/Plan 1. Abnormal cardiac enzymes. He has mildly abnormal cardiac enzymes suggesting likely underlying coronary artery disease. The above is likely exacerbated by his current respiratory condition. His echocardiogram demonstrated overall preserved left ventricular systolic function. I suspect the above is likely secondary to demand ischemia. I would like to see how he does over the course of the day and perhaps a stress test can be performed prior to his discharge. 2. Shortness of breath. The etiology of his shortness of breath is unclear to me at this particular time. More is related to congestive heart failure. He does have evidence of reticular nodular pattern on his chest x-ray as well as abnormal natruretic peptide level. His echocardiogram demonstrated overall preserved left ventricular systolic function. The above is likely secondary to diastolic dysfunction. Would like to see how he does with minimal oxygen today. Discontinue albuterol nebulizer. Thank you for allowing me to participate in the care of your patient. Please don't hesitate to call if any issues arise
[2018-03-02] MEDS: Ceftriaxone 1 GM/50 ML BAG IV (10:02)
[2018-03-02] MEDS: Gabapentin 300 MG Capsule PO ×2 (10:02→17:21)
[2018-03-02] MEDS: Carvedilol 3.125 MG TABLET PO ×2 (10:02→20:54)
[2018-03-02] MEDS: buPROPion (XL) 150 MG TABLET.XL PO (10:02)
[2018-03-02] MEDS: FLUoxetine 20 MG Capsule PO ×2 (10:02→20:54)
[2018-03-02] MEDS: Furosemide 40 MG Tablet PO ×2 (10:02→17:21)
[2018-03-02] MEDS: Multivitamins,Ther W-Minerals Tablet 1 TABLET PO (10:02)
[2018-03-02] MEDS: Aspirin E.C. 81 MG Tablet PO (10:02)
--- NOTE | 2018-03-02 10:45 | PCM.PN.HOSP ---
Patient Problems: Active and Suspected Problems Transaminitis (Acute) CAP (community acquired pneumonia) (Acute) COPD exacerbation (Acute) Elevated troponin (Acute) Subjective: Patient notes feeling improved since initial presentation and states that he is coughing less and less dyspneic. He has been up and moving in the room this morning and is able to talk with greater ease as the day prior with any exertion he had notable conversational dyspnea. Evaluation per Cardiology with concern additional for CHF exacerbation started on IV lasix and oral transition, reviewed work-up with patient and mild plan alterations as well as additional plan for possible stress testing prior to discharge. Patient denies fevers, chills, nausea, emesis, abdominal pain, chest pain. Objective: Physical Examination: General: awake, alert, oriented x 3 and cooperative, seated upright in bed, improved appearance from day prior. Skin: normal color, turgor, no icterus, cyanosis. HEENT: AT/NC, EOMI, PERRLA, mildly dry MM. Lungs: Mildly improved, still diminished, > bases, improved effort, unable to discern rales, ronchi or wheezing. Heart: Regular rate and rhythm; no gallop, rub audible. Abdomen: soft, NTTP, ND, normal BS. Extremities: no cyanosis, clubbing, or edema. Neurological: patient awake, alert, oriented x 3; cognitive function intact; pupils equally reactive to light and accomodation; cranial nerves II-XII grossly normal, moving all 4 extremities, no focal deficits, strength improved, moderately to severely globally decreased. Psychiatric: affect appears normal, no acute evidence of depressive or anxiety feelings. Vitals/I&O's: Vital Signs Temp Pulse Resp BP Pulse Ox 98.4 F 96 20 H 138/82 H 94 03/02/18 09:50 03/02/18 09:50 03/02/18 09:50 03/02/18 09:50 03/02/18 09:50 Oxygen Flow Rate (L/min) 6 Oxygen Delivery Method Nasal Cannula Weight: 186 lb 8.177 oz Body Mass Index (BMI) 26.7 Intake and Output for Last 24 Hours 02/28/18 03/01/18 03/02/18 23:59 23:59 23:59 Intake Total 2485 / 2485 350 / 350 Output Total 1700 / 1700 Balance 785 / 785 350 / 350 Microbiology Past 72 Hours 03/01/18 11:00 Mucosa - Nasopharyngeal Respiratory Panel (PCR) - Final 03/01/18 06:38 Urine, Clean Catch Streptococcus pneumoniae Antigen (M - Final 03/01/18 06:38 Urine, Clean Catch Legionella Antigen - Final 03/01/18 03:50 Mucosa - Nasopharyngeal Influenza Types A,B Direct FA (REYNA) - Final Laboratory Results 03/01/18 06:15: Magnesium 2.1 03/01/18 06:15: Hepatitis A IgM Ab Pending, Hepatitis A Ab Total Pending, Hep Bs Antigen Pending, Hep B Core Total Ab Pending, Hep B Core IgM Ab Pending, Hepatitis C Comment Pending 03/02/18 05:12: WBC 20.2 H, RBC 4.34 L, Hgb 13.5, Hct 39.3 L, MCV 90.6, MCH 31.1, MCHC 34.4, RDW 14.3, RDW Differential 46.2 H, Plt Count 292, MPV 12.0, Immature Gran % (Auto) 0.200, Neut % (Auto) 88.6 H, Lymph % (Auto) 7.2 L, [place] % (Auto) 3.9, Eos % (Auto) 0.1, Baso % (Auto) 0.0, Absolute Neuts (auto) 17.9 H, Absolute Lymphs (auto) 1.45, Total Counted Not Reportable 03/02/18 05:12: Sodium 139, Potassium 4.5, Chloride 104, Carbon Dioxide 27.0, Anion Gap 8, BUN 28 H, Creatinine 1.13, Estim Creat Clear Calc 75.37, Est GFR (MDRD) Af Amer 86, Est GFR (MDRD) Non-Af 71, BUN/Creatinine Ratio 24.8 H, Glucose 142 H, Calcium 8.9, Total Bilirubin 0.70, Direct Bilirubin 0.17, AST 57 H, ALT 83 H, Alkaline Phosphatase 95, Total Protein 7.5, Albumin 2.8 L, Globulin 4.7 H Current Medications Albuterol/Ipratropium (Duoneb) 3 ml INHALATION Q4H.RT [facility] Last Admin: 03/02/18 07:19 Dose: 3 ml Aspirin (Ecotrin) 81 mg PO DAILY@0800 [facility] Last Admin: 03/02/18 10:02 Dose: 81 mg Atorvastatin Calcium (Lipitor) 80 mg PO QHS [facility] Last Admin: 03/01/18 22:20 Dose: 80 mg Bupropion HCl (Wellbutrin Xl) 150 mg PO DAILY [facility] Last Admin: 03/02/18 10:02 Dose: 150 mg Carvedilol (Coreg) 3.125 mg PO BID [facility] Last Admin: 03/02/18 10:02 Dose: 3.125 mg Enoxaparin Sodium (Lovenox) 40 mg SC DAILY@0600 [facility] Last Admin: 03/02/18 05:29 Dose: 40 mg Fluoxetine HCl (Prozac) 20 mg PO BID [facility] Last Admin: 03/02/18 10:02 Dose: 20 mg Furosemide (Lasix) 40 mg PO BID@1000,1800 [facility] Last Admin: 03/02/18 10:02 Dose: 40 mg [facility]) [facility] Admin: 03/02/18 10:02 Dose: 300 mg Ceftriaxone Sodium (Rocephin) 1 gm in 50 mls @ 100 mls/hr IV Q24 [facility] Last Admin: 03/02/18 10:02 Dose: 100 mls/hr Azithromycin 500 mg/ Dextrose 255 mls @ 250 mls/hr IV Q24 [facility] Stop: 03/03/18 11:02 Last Admin: 03/01/18 09:44 Dose: 250 mls/hr Methylprednisolone (Solu-Medrol) 40 mg IV Q8 [facility] Last Admin: 03/02/18 06:15 Dose: 40 mg Multivitamins/Minerals (Multivitamin With Minerals) [facility] Last Admin: 03/02/18 10:02 Dose: 1 tablet Nutritional Formula (Lactose Free) (Ensure Enlive) 120 ml PO 4X/DAY [facility] Last Admin: 03/02/18 10:02 Dose: 120 ml Sodium Chloride () 5 - 30 ml IV UD PRN PRN Reason: SALINE FLUSH Last Admin: 03/02/18 10:03 Dose: 10 ml Zolpidem Tartrate (Ambien (Generic)) 5 mg PO QHS PRN PRN PRN Reason: SLEEP Last Admin: 03/02/18 00:20 Dose: 5 mg Medical Necessity - Tobacco Use Smoking Status: Former smoker Tobacco Use: Cigarettes Assessment/Plan All Active Problems Transaminitis (Acute) CAP (community acquired pneumonia) (Acute) COPD exacerbation (Acute) Elevated troponin (Acute) The patient is a 58 y/o M w/ PMHx: Anxiety and Depression, History of Tobacco use, Suspected Chronic COPD, BPH, Chronic Neuropathy who presents to the [facility] ED on 03/01/18 with history of ongoing dyspnea, wheezing, unable to catch his breath over the last several days, worsening. (1) Acute Hypoxic Respiratory Failure secondary to Acute on Suspected Chronic COPD exacerbation w/ ? CAP and ? Diastolic CHF Exacerbation: CXR w/ chronic changes/interstitial disease, CBC on admission w/ WBC 18 with L shift. Increased work of breathing, accessory muscle usage, conversational dyspnea present upon evaluation. Admitted to PCU, maintained on oxygen with wean as tolerated to room air, continued ATC duonebs, IV methylprednisolone w/ 03/02/18 prednisone transition, HOB, IS parameters, IV Azithromycin and Rocephin given presentation, negative antigens, negative viral PCR, requested sputum cultures. Cardiology consultation secondary to elevated enzymes, felt likely CHF Exacerbation, given IV lasix initially and transitioned to oral BID lasix 40 mg, asa, statin, BB continued, add ACEI if appropriate, ECHO w/ normal LV size, mild eccentric LVH, LV systolic function normal, EF 60%, transmitral diastolic flow velocities suggestive of mild stage I diastolic dysfunction, pulmonary artery systolic pressure 38 mmHg, repeat AM CXR pending. Pulmonary consulted given despite interventions still requiring notable oxygen supplementation and VM placement, pending. (2) Elevated Cardiac Enzymes: EKG in ED w/ no acute evidence of ischemia, CXR w/ chronic interstitial lung disease. Trop elevated, 0.193. Will maintain on a monitored bed, serial cardiac enzymes w/ 0.193-->0.238-->0.144. Magnesium 2.1. Continue medical management w/ addition asa, statin w/ AM FLP marked aside low HDL. Cardiology consulted. ECHO w/ normal LV size, mild eccentric LVH, LV systolic function normal, EF 60%, transmitral diastolic flow velocities suggestive of mild stage I diastolic dysfunction, pulmonary artery systolic pressure 38 mmHg. Maintained on asa, statin, BB, lasix as noted above. ASA, NG, morphine. Mag 2.1. Consider stress testing prior to discharge once pulmonary status improved. (3) Hypokalemia: Admission K+ 3.4, supplementation given, repeat level in AM. (4) Hyperglycemia: Admission glucose 253, HgBA1c obtained 5.9%. (5) Mildly Elevated LFTs: Admission AST/ALT 49/64, Hepatitis panel pending, Liver US unremarkable, 03/02/18 CMP w/ AST/ALT similar 57/83. (6) Anxiety and Depression: Maintain on home regimen wellbutrin, prozac. (7) ? Polysubstance Use: UDS w/ cannabis, encourage cessation. UDS also + MDMA/meth, on wellbutrin. (8) DVT Prophylaxis: SCDs, lovenox. Code Visit Inpatient E&M: 92038 Subs Hosp L3
--- NOTE | 2018-03-02 11:10 | PCM.CONS.GEN ---
Problem List (1) COPD exacerbation Status: Acute (2) Elevated troponin Status: Acute (3) Transaminitis Status: Acute Reason for Consult Date of Consultation: 03/02/18 Reason for Consultation: Suspected COPD, ? CAP History of Present Illness: The patient is a 58 year old M with a past medical history as below, presented to the ED on 03/01/18 with complaints of shortness of breath. Patient reports he has been somewhat short of breath since December 2017 when he had pneumonia, however in the last couple of days it got progressively worse. He has had a nonproductive cough since December as well and has taken steroids for this with some improvement. The humidity seem to make his breathing worse. He does note intermittent subjective fever and chills for the last couple of weeks as well as night sweats. No weight loss. He has a [id number] history and quit in December when he had pneumonia. He does intermittently smoke marijuana and bakes with it as well. He denies any orthopnea, paroxysmal nocturnal dyspnea, dizziness, or syncope. He denies any chest pain or palpitations. He has not had any sputum production, hemoptysis, or epistaxis. He does have intermittent wheezing at times. Admits to a high level of anxiety at baseline. Patient also admits to high fat and salt diet, he does eat [employer] every day. Initial vitals blood pressure 149/89, pulse 143, RR 38, 97.5?F, and 66% on room air. Initial chest x-ray showed diffuse reticular interstitial opacities in both lungs more prominent in the lower lobes consistent with chronic interstitial lung disease. No acute abnormality. Blood work revealed a leukocytosis of 15,300, normal hemoglobin. Chemistry remarkable for potassium of 3.4, glucose 253. AST and ALT are elevated at 49 and 64, respectively. Total protein 7.5 and albumin 2.9. Troponin 0.193 and peaked at 0.238 with trending downward. BNP was elevated at 437.5. EKG showed sinus tachycardia. Urine tox screen positive for methamphetamines and cannabinoids. Hepatitis panel is pending. Patient was treated in the ED with aerosols and IV Solu-Medrol, as well as azithromycin and ceftriaxone. He was transferred to the progressive care unit for further evaluation and management. He did have an echocardiogram which demonstrated normal LV size and LV systolic function. There was mild eccentric LVH, estimated EF of 60%, and transmitral diastolic flow velocity suggestive of mild (stage I) diastolic dysfunction (reversed pattern). RVSP estimated at 38 mmHg. Cardiology was consulted. She was given a ?1 dose of IV Lasix and is currently being maintained on oral Lasix twice daily. He remains on antibiotics and IV steroids. He did get some IV fluids while on the floor. A liver ultrasound was also performed and was normal. Repeat chest x-ray was performed on 03/02/18 with no changes. Influenza, viral respiratory panel, and urine strep/Legionella antigens were all negative. A blood culture from the is pending. In addition to his smoking history, the patient states he has had exposures to several different types of chemicals. 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 He has had spirometry in the office but no formal pulmonary function tests. No past inhaler use except albuterol when sick. He denies any personal history of cancer. His mother did have breast cancer. His father was an alcoholic. Patient does admit to prior alcoholism, but quit a long time ago. He also reports an extensive past drug use history. He also had a colon perforation in 2005 with extensive surgery secondary to MRSA infection and temporary colostomy. Past Medical History Allergies Sulfa (Sulfonamide Antibiotics) Allergy (Verified 03/01/18 00:31) Unknown Home Medications: Ambulatory Orders Medication Instructions Recorded Bupropion HCl [Wellbutrin Xl] 150 mg PO DAILY 03/01/18 Fluoxetine [Prozac] 20 mg PO BID 03/01/18 Gabapentin [Neurontin] 300 mg PO BID 03/01/18 Multivit-Min/FA/Vit K/Lycopene 1 tab PO DAILY 03/01/18 [One-A-Day Men's 50 Plus Tablet] [place] 500 mg PO BID 03/01/18 ALPRAZolam [Xanax] 0.5 mg PO BID PRN 03/02/18 Zolpidem Tartrate [Ambien 5 mg PO QHS PRN PRN 03/02/18 (Generic)] Surgical History: - - open abdominal sx repair perforated bowel 2005 with temp colostomy and reversal, subsequent MRSA infections. Psychiatric History: Anxiety Lives: Alone Smoking Status: Former smoker Tobacco Use: Cigarettes Alcohol: None Drugs: Marijuana, - - extensive past drug use, none for at least 10 years - *Family History Maternal History Items: Cancer - breast, No pertinent history Paternal History Items: - - alcoholism, COPD Review of Systems Constitutional: Reports: Chills, Fever, Night Sweats, Fatigue. Denies: Anorexia, Weakness, Weight Change Eyes: Denies: Vision Change HEENT: Denies: Difficulty Swallowing, Nasal Congestion, Post Nasal Drip, Sinus Congestion, Sinus Drainage, Sore Throat Cardiovascular: Reports: Orthopnea - resolved. Denies: Chest Pain, Chest Tightness, Edema, Light Headedness, Palpitations, Paroxysmal Noc. Dyspnea, Syncope Respiratory: Reports: Cough - occas CHARGE OUT CLERK, Shortness of breath upon exertion, Wheezing. Denies: Hemoptysis, Sputum production Gastrointestinal: Denies: Abdominal Pain, Constipation, Diarrhea, Dyspepsia, Hematemesis, Hematochezia, Nausea, Melena, Vomiting Genitourinary: Denies: Dysuria, Frequency, Hematuria, Nocturia, Retention Musculoskeletal: Denies: Back Pain, Neck Pain, Shoulder Pain Skin: Denies: Rash, Wounds Neurological: Denies: Balance problems, Change in Speech, Confusion, Difficulty swallowing, Focal weakness, Numbness, Tingling, Tremor, Seizures Psychiatric: Reports: Anxiety. Denies: Depression, Suicidal Ideations Endocrine: Denies: Change in Body Habitus, Polydipsia, Polyuria Hematologic/ Lymphatic: Denies: Adenopathy, Anemia, Easy Bruising, Easy Bleeding, Hx of blood clot Patient Problems: Active and Suspected Problems Transaminitis (Acute) CAP (community acquired pneumonia) (Acute) COPD exacerbation (Acute) Elevated troponin (Acute) Subjective: Patient was seen and examined. He does not appear to be in any acute distress. Wearing 6 L of oxygen supplementation via nasal cannula. He is very talkative with flight of ideas and seems to have trouble staying on topic. However, he is very pleasant and cooperative. Denies any cough or current shortness of breath. No chest pain. Objective: Clinical Impression(s) from Imaging Studies Chest X-Ray 03/01/18 00:21 IMPRESSION: Chronic interstitial lung disease. Electronically Signed: Brielle Hutchinson MD at 1:51 EDT Tel , Service support , Liver Ultrasound 03/01/18 12:57 IMPRESSION: Normal right upper quadrant ultrasound examination. Electronically Signed: Kwasi Corey MD at 20:28 EDT , Service support , Chest X-Ray 03/02/18 05:59 IMPRESSION: Stable examination. Electronically Signed: Efrain Urbano MD at 11:11 EDT Tel [phone], Service support , - Physical Exam General: Alert, Oriented x3, Cooperative, No apparent distress, Well developed, Well nourished, - - no conversational dyspnea. unkempt HEENT: Atraumatic, PERRLA, Normocephalic Oral: Moist Mucosa, No Gingival or Mucosal Lesions/ Ulcerations Neck: Supple, No Nodes, Trachea Midline, Thyroid Normal Size and Texture Lungs: No rhonchi, No wheeze, No rales, Diminished, - - Symmetric expansion, no dullness to percussion. No tachypnea or accessory muscle use. Cardiovascular: Regular rate, Regular Rhythm, Normal S1, Normal S2, No murmurs, PMI Normal, No rub noted, No Gallop Abdomen: Bowel Sounds Present, Soft, Non Tender, Non-Distended, No hernias noted, - - Multiple surgical scars Extremities: No cyanosis, No edema, Capillary Refill Less than 3 Seconds, Clubbing, Peripheral Pulses Normal Skin: No rashes, No breakdown Musculoskeletal: No Tenderness to Palpation of Joints or Extremities Lymphatic: No Cervical, Supraclavicular, or Inguinal Adenopathy Neurological: Cranial nerves II-XII grossly intact, Neuro grossly intact, Motor Exam 5/5 strength throughout Psych/Mental Status: Appropriate, Anxious, - - Cooperative, very talkative with flight of ideas. Vital Signs Temp Pulse Resp BP Pulse Ox 98.4 F 96 20 H 138/82 H 94 03/02/18 09:50 03/02/18 09:50 03/02/18 09:50 03/02/18 09:50 03/02/18 09:50 Oxygen Flow Rate (L/min) 6 Oxygen Delivery Method Nasal Cannula Weight: 186 lb 8.177 oz Body Mass Index (BMI) 26.7 Intake and Output for Last 24 Hours 02/28/18 03/01/18 03/02/18 23:59 23:59 23:59 Intake Total 2485 / 2485 350 / 350 Output Total 1700 / 1700 Balance 785 / 785 350 / 350 Microbiology Past 72 Hours 03/01/18 11:00 Respiratory Panel (PCR) - Final Mucosa - Nasopharyngeal 03/01/18 06:38 Streptococcus pneumoniae Antigen (M - Final Urine, Clean Catch 03/01/18 06:38 Legionella Antigen - Final Urine, Clean Catch 03/01/18 03:50 Influenza Types A,B Direct FA (REYNA) - Final Mucosa - Nasopharyngeal Laboratory Tests Past 24 Hrs 03/01/18 03/01/18 03/02/18 06:15 06:15 05:12 WBC 20.2 H RBC 4.34 L Hgb 13.5 Hct 39.3 L MCV 90.6 MCH 31.1 MCHC 34.4 RDW 14.3 RDW Differential 46.2 H Plt Count 292 MPV 12.0 Immature Gran % (Auto) 0.200 Neut % (Auto) 88.6 H Lymph % (Auto) 7.2 L [place] % (Auto) 3.9 Eos % (Auto) 0.1 Baso % (Auto) 0.0 Absolute Neuts (auto) 17.9 H Absolute Lymphs (auto) 1.45 Total Counted Not Reportable Sodium Potassium Chloride Carbon Dioxide Anion Gap BUN Creatinine Estim Creat Clear Calc Est GFR (MDRD) Af Amer Est GFR (MDRD) Non-Af BUN/Creatinine Ratio Glucose Calcium Magnesium 2.1 Total Bilirubin Direct Bilirubin AST ALT Alkaline Phosphatase Total Protein Albumin Globulin Hepatitis A IgM Ab Pending Hepatitis A Ab Total Pending Hep Bs Antigen Pending Hep B Core Total Ab Pending Hep B Core IgM Ab Pending Hepatitis C Comment Pending 03/02/18 05:12 WBC RBC Hgb Hct MCV MCH MCHC RDW RDW Differential Plt Count MPV Immature Gran % (Auto) Neut % (Auto) Lymph % (Auto) [place] % (Auto) Eos % (Auto) Baso % (Auto) Absolute Neuts (auto) Absolute Lymphs (auto) Total Counted Sodium 139 Potassium 4.5 Chloride 104 Carbon Dioxide 27.0 Anion Gap 8 BUN 28 H Creatinine 1.13 Estim Creat Clear Calc 75.37 Est GFR (MDRD) Af Amer 86 Est GFR (MDRD) Non-Af 71 BUN/Creatinine Ratio 24.8 H Glucose 142 H Calcium 8.9 Magnesium Total Bilirubin 0.70 Direct Bilirubin 0.17 AST 57 H ALT 83 H Alkaline Phosphatase 95 Total Protein 7.5 Albumin 2.8 L Globulin 4.7 H Hepatitis A IgM Ab Hepatitis A Ab Total Hep Bs Antigen Hep B Core Total Ab Hep B Core IgM Ab Hepatitis C Comment Assessment/Plan All Active Problems Transaminitis (Acute) CAP (community acquired pneumonia) (Acute) COPD exacerbation (Acute) Elevated troponin (Acute) RECOMMENDATIONS 1. Wean oxygen supplementation to keep saturations 88-92%. 2. Encourage incentive spirometer/Acapella 3. Increase activity as tolerated 4. Continue DuoNeb aerosols 5. Check MRSA PCR 6. Obtain high resolution chest CT 7. Ambulatory pulse ox prior to discharge 8. Follow-up in the pulmonary clinic in 2 weeks with CHARGE OUT CLERK at which time formal pulmonary function tests can be ordered IMPRESSIONS 1. Acute hypoxic respiratory failure likely secondary to diastolic CHF Improved with diuresis, but no significant improvement in oxygenation as he is still requiring 5-6 L. He was previously on a Venturi mask. Had ?1 IV Lasix. Echo shows preserved LV systolic function. Patient encouraged to modify diet, does have a very high salt diet and liberal fluids at home. Cardiology is following. Patient currently being diuresed with oral Lasix twice daily. Continue to wean oxygen to keep saturations 88-92%. I suspect more related to CHF than an infectious process, however will continue antibiotics pending infectious workup. Ambulatory pulse ox prior to discharge and patient can follow-up in the pulmonary clinic in 2 weeks with CHARGE OUT CLERK. 2. Elevated cardiac enzymes Likely secondary to demand ischemia. The patient was in respiratory distress upon arrival and hypoxic. He does not have any chest pain. Cardiology following, possibly perform stress test prior to discharge. 3. Suspected COPD/questionable interstitial lung disease Possible exacerbation but may be more related to CHF. Patient has significant history of smoking and recently quit in December 2017. He has had shortness of breath off and on for quite some time, but significantly worse in the last couple of days. Imaging consistent with chronic interstitial lung disease. 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 No prior inhaler therapy other than as needed albuterol. Patient would benefit from formal pulmonary function tests and a pulmonary stress test as an outpatient to quantify his lung function. Will obtain a CT of the chest. 4. Tobacco abuse in remission/Past drug history/risky behaviors/MRSA infection 2006 Complicates care, management, recovery, and prognosis. Significant smoking history, quit cold turkey December 2017. Encouraged ongoing smoking cessation. No need for nicotine replacement therapy at this time. Hepatitis panel is pending. Thank you for the opportunity to participate in this patient's care, please do not hesitate contact us with any further questions or concerns. This note was generated with [employer]ino dictation software. It may contain incorrect words, spelling, and punctuation that were not noted in checking the note before signing.
--- NOTE | 2018-03-02 11:17 | PN_ITS ---
Patient Problems: Active and Suspected Problems Transaminitis (Acute) CAP (community acquired pneumonia) (Acute) COPD exacerbation (Acute) Elevated troponin (Acute) Subjective: Patient notes feeling improved since initial presentation and states that he is coughing less and less dyspneic. He has been up and moving in the room this morning and is able to talk with greater ease as the day prior with any exertion he had notable conversational dyspnea. Evaluation per Cardiology with concern additional for CHF exacerbation started on IV lasix and oral transition , reviewed work-up with patient and mild plan alterations as well as additional plan for possible stress testing prior to discharge. Patient denies fevers, chills, nausea, emesis, abdominal pain, chest pain. Objective: Physical Examination: General: awake, alert, oriented x 3 and cooperative, seated upright in bed, improved appearance from day prior. Skin: normal color, turgor, no icterus, cyanosis. HEENT: AT/NC, EOMI, PERRLA, mildly dry MM. Lungs: Mildly improved, still diminished, > bases, improved effort, unable to discern rales, ronchi or wheezing. Heart: Regular rate and rhythm; no gallop, rub audible. Abdomen: soft, NTTP, ND, normal BS. Extremities: no cyanosis, clubbing, or edema. Neurological: patient awake, alert, oriented x 3; cognitive function intact; pupils equally reactive to light and accomodation; cranial nerves II-XII grossly normal, moving all 4 extremities, no focal deficits, strength improved, moderately to severely globally decreased. Psychiatric: affect appears normal, no acute evidence of depressive or anxiety feelings. Vitals/I&O's: Vital Signs Temp Pulse Resp BP Pulse Ox 98.4 F 96 20 H 138/82 H 94 03/02/18 09:50 03/02/18 09:50 03/02/18 09:50 03/02/18 09:50 03/02/18 09:50 Oxygen Flow Rate (L/min) 6 Oxygen Delivery Method Nasal Cannula Weight: 186 lb 8.177 oz Body Mass Index (BMI) 26.7 Intake and Output for Last 24 Hours 02/28/18 03/01/18 03/02/18 23:59 23:59 23:59 Intake Total 2485 / 2485 350 / 350 Output Total 1700 / 1700 Balance 785 / 785 350 / 350 Microbiology Past 72 Hours 03/01/18 11:00 Mucosa - Nasopharyngeal Respiratory Panel (PCR) - Final 03/01/18 06:38 Urine, Clean Catch Streptococcus pneumoniae Antigen (M - Final 03/01/18 06:38 Urine, Clean Catch Legionella Antigen - Final 03/01/18 03:50 Mucosa - Nasopharyngeal Influenza Types A,B Direct FA (REYNA) - Final Laboratory Results 03/01/18 06:15: Magnesium 2.1 03/01/18 06:15: Hepatitis A IgM Ab Pending, Hepatitis A Ab Total Pending, Hep Bs Antigen Pending, Hep B Core Total Ab Pending, Hep B Core IgM Ab Pending, Hepatitis C Comment Pending 03/02/18 05:12: WBC 20.2 H, RBC 4.34 L, Hgb 13.5, Hct 39.3 L, MCV 90.6, MCH 31.1 , MCHC 34.4, RDW 14.3, RDW Differential 46.2 H, Plt Count 292, MPV 12.0, Immature Gran % (Auto) 0.200, Neut % (Auto) 88.6 H, Lymph % (Auto) 7.2 L, [place] % (Auto) 3.9, Eos % (Auto) 0.1, Baso % (Auto) 0.0, Absolute Neuts (auto) 17.9 H , Absolute Lymphs (auto) 1.45, Total Counted Not Reportable 03/02/18 05:12: Sodium 139, Potassium 4.5, Chloride 104, Carbon Dioxide 27.0, Anion Gap 8, BUN 28 H, Creatinine 1.13, Estim Creat Clear Calc 75.37, Est GFR ( MDRD) Af Amer 86, Est GFR (MDRD) Non-Af 71, BUN/Creatinine Ratio 24.8 H, Glucose 142 H, Calcium 8.9, Total Bilirubin 0.70, Direct Bilirubin 0.17, AST 57 H, ALT 83 H, Alkaline Phosphatase 95, Total Protein 7.5, Albumin 2.8 L, Globulin 4.7 H Current Medications Albuterol/Ipratropium (Duoneb) 3 ml INHALATION Q4H.RT [facility] Last Admin: 03/02/18 07:19 Dose: 3 ml Aspirin (Ecotrin) 81 mg PO DAILY@0800 [facility] Last Admin: 03/02/18 10:02 Dose: 81 mg Atorvastatin Calcium (Lipitor) 80 mg PO QHS [facility] Last Admin: 03/01/18 22:20 Dose: 80 mg Bupropion HCl (Wellbutrin Xl) 150 mg PO DAILY [facility] Last Admin: 03/02/18 10:02 Dose: 150 mg Carvedilol (Coreg) 3.125 mg PO BID [facility] Last Admin: 03/02/18 10:02 Dose: 3.125 mg Enoxaparin Sodium (Lovenox) 40 mg SC DAILY@0600 [facility] Last Admin: 03/02/18 05:29 Dose: 40 mg Fluoxetine HCl (Prozac) 20 mg PO BID [facility] Last Admin: 03/02/18 10:02 Dose: 20 mg Furosemide (Lasix) 40 mg PO BID@1000,1800 [facility] Last Admin: 03/02/18 10:02 Dose: 40 mg [facility]: 03/02/18 10:02 Dose: 300 mg Ceftriaxone Sodium (Rocephin) 1 gm in 50 mls @ 100 mls/hr IV Q24 [facility] Last Admin: 03/02/18 10:02 Dose: 100 mls/hr Azithromycin 500 mg/ Dextrose 255 mls @ 250 mls/hr IV Q24 [facility] Stop: 03/03/18 11:02 Last Admin: 03/01/18 09:44 Dose: 250 mls/hr Methylprednisolone (Solu-Medrol) 40 mg IV Q8 [facility] Last Admin: 03/02/18 06:15 Dose: 40 mg Multivitamins/Minerals (Multivitamin With Minerals) [facility] Last Admin: 03/02/18 10:02 Dose: 1 tablet Nutritional Formula (Lactose Free) (Ensure Enlive) 120 ml PO 4X/DAY [facility] Last Admin: 03/02/18 10:02 Dose: 120 ml Sodium Chloride () 5 - 30 ml IV UD PRN PRN Reason: SALINE FLUSH Last Admin: 03/02/18 10:03 Dose: 10 ml Zolpidem Tartrate (Ambien (Generic)) 5 mg PO QHS PRN PRN PRN Reason: SLEEP Last Admin: 03/02/18 00:20 Dose: 5 mg Medical Necessity - Tobacco Use Smoking Status: Former smoker Tobacco Use: Cigarettes Assessment/Plan All Active Problems Transaminitis (Acute) CAP (community acquired pneumonia) (Acute) COPD exacerbation (Acute) Elevated troponin (Acute) The patient is a 58 y/o M w/ PMHx: Anxiety and Depression, History of Tobacco use, Suspected Chronic COPD, BPH, Chronic Neuropathy who presents to the [facility] ED on 03/01/18 with history of ongoing dyspnea, wheezing, unable to catch his breath over the last several days, worsening. (1) Acute Hypoxic Respiratory Failure secondary to Acute on Suspected Chronic COPD exacerbation w/ ? CAP and ? Diastolic CHF Exacerbation: CXR w/ chronic changes/interstitial disease, CBC on admission w/ WBC 18 with L shift. Increased work of breathing, accessory muscle usage, conversational dyspnea present upon evaluation. Admitted to PCU, maintained on oxygen with wean as tolerated to room air, continued ATC duonebs, IV methylprednisolone w/ 03/02/18 prednisone transition, HOB, IS parameters, IV Azithromycin and Rocephin given presentation, negative antigens, negative viral PCR, requested sputum cultures. Cardiology consultation secondary to elevated enzymes, felt likely CHF Exacerbation, given IV lasix initially and transitioned to oral BID lasix 40 mg , asa, statin, BB continued, add ACEI if appropriate, ECHO w/ normal LV size, mild eccentric LVH, LV systolic function normal, EF 60%, transmitral diastolic flow velocities suggestive of mild stage I diastolic dysfunction, pulmonary artery systolic pressure 38 mmHg, repeat AM CXR pending. Pulmonary consulted given despite interventions still requiring notable oxygen supplementation and VM placement, pending. (2) Elevated Cardiac Enzymes: EKG in ED w/ no acute evidence of ischemia, CXR w / chronic interstitial lung disease. Trop elevated, 0.193. Will maintain on a monitored bed, serial cardiac enzymes w/ 0.193-->0.238-->0.144. Magnesium 2.1. Continue medical management w/ addition asa, statin w/ AM FLP marked aside low HDL. Cardiology consulted. ECHO w/ normal LV size, mild eccentric LVH, LV systolic function normal, EF 60%, transmitral diastolic flow velocities suggestive of mild stage I diastolic dysfunction, pulmonary artery systolic pressure 38 mmHg. Maintained on asa, statin, BB, lasix as noted above. ASA, NG, morphine. Mag 2.1. Consider stress testing prior to discharge once pulmonary status improved. (3) Hypokalemia: Admission K+ 3.4, supplementation given, repeat level in AM. (4) Hyperglycemia: Admission glucose 253, HgBA1c obtained 5.9%. (5) Mildly Elevated LFTs: Admission AST/ALT 49/64, Hepatitis panel pending, Liver US unremarkable, 03/02/18 CMP w/ AST/ALT similar 57/83. (6) Anxiety and Depression: Maintain on home regimen wellbutrin, prozac. (7) ? Polysubstance Use: UDS w/ cannabis, encourage cessation. UDS also + MDMA/ meth, on wellbutrin. (8) DVT Prophylaxis: SCDs, lovenox. Code Visit Inpatient E&M: 22341 Subs Hosp L3
--- NOTE | 2018-03-02 11:20 | CON.PCM_ITS ---
Problem List (1) COPD exacerbation Status: Acute (2) Elevated troponin Status: Acute (3) Transaminitis Status: Acute Reason for Consult Date of Consultation: 03/02/18 Reason for Consultation: Suspected COPD, ? CAP History of Present Illness: The patient is a 58 year old M with a past medical history as below, presented to the ED on 03/01/18 with complaints of shortness of breath. Patient reports he has been somewhat short of breath since December 2017 when he had pneumonia, however in the last couple of days it got progressively worse. He has had a nonproductive cough since December as well and has taken steroids for this with some improvement. The humidity seem to make his breathing worse. He does note intermittent subjective fever and chills for the last couple of weeks as well as night sweats. No weight loss. He has a [id number] history and quit in December when he had pneumonia. He does intermittently smoke marijuana and bakes with it as well. He denies any orthopnea, paroxysmal nocturnal dyspnea, dizziness, or syncope. He denies any chest pain or palpitations. He has not had any sputum production, hemoptysis, or epistaxis. He does have intermittent wheezing at times. Admits to a high level of anxiety at baseline. Patient also admits to high fat and salt diet, he does eat [employer] every day. Initial vitals blood pressure 149/89, pulse 143, RR 38, 97.5?F, and 66% on room air. Initial chest x-ray showed diffuse reticular interstitial opacities in both lungs more prominent in the lower lobes consistent with chronic interstitial lung disease. No acute abnormality. Blood work revealed a leukocytosis of 15,300, normal hemoglobin. Chemistry remarkable for potassium of 3.4, glucose 253. AST and ALT are elevated at 49 and 64, respectively. Total protein 7.5 and albumin 2.9. Troponin 0.193 and peaked at 0.238 with trending downward. BNP was elevated at 437.5. EKG showed sinus tachycardia. Urine tox screen positive for methamphetamines and cannabinoids. Hepatitis panel is pending. Patient was treated in the ED with aerosols and IV Solu- Medrol, as well as azithromycin and ceftriaxone. He was transferred to the progressive care unit for further evaluation and management. He did have an echocardiogram which demonstrated normal LV size and LV systolic function. There was mild eccentric LVH, estimated EF of 60%, and transmitral diastolic flow velocity suggestive of mild (stage I) diastolic dysfunction (reversed pattern). RVSP estimated at 38 mmHg. Cardiology was consulted. She was given a ?1 dose of IV Lasix and is currently being maintained on oral Lasix twice daily. He remains on antibiotics and IV steroids. He did get some IV fluids while on the floor. A liver ultrasound was also performed and was normal. Repeat chest x-ray was performed on 03/02/18 with no changes. Influenza, viral respiratory panel, and urine strep/Legionella antigens were all negative. A blood culture from the is pending. In addition to his smoking history, the patient states he has had exposures to several different types of chemicals. 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 He has had spirometry in the office but no formal pulmonary function tests. No past inhaler use except albuterol when sick. He denies any personal history of cancer. His mother did have breast cancer. His father was an alcoholic. Patient does admit to prior alcoholism, but quit a long time ago. He also reports an extensive past drug use history. He also had a colon perforation in 2005 with extensive surgery secondary to MRSA infection and temporary colostomy. Past Medical History Allergies Sulfa (Sulfonamide Antibiotics) Allergy (Verified 03/01/18 00:31) Unknown Home Medications: Ambulatory Orders Medication Instructions Recorded Bupropion HCl [Wellbutrin Xl] 150 mg PO DAILY 03/01/18 Fluoxetine [Prozac] 20 mg PO BID 03/01/18 Gabapentin [Neurontin] 300 mg PO BID 03/01/18 Multivit-Min/FA/Vit K/Lycopene 1 tab PO DAILY 03/01/18 [One-A-Day Men's 50 Plus Tablet] Saw [place] 500 mg PO BID 03/01/18 ALPRAZolam [Xanax] 0.5 mg PO BID PRN 03/02/18 Zolpidem Tartrate [Ambien 5 mg PO QHS PRN PRN 03/02/18 (Generic)] Surgical History: - - open abdominal sx repair perforated bowel 2005 with temp colostomy and reversal, subsequent MRSA infections. Psychiatric History: Anxiety Lives: Alone Smoking Status: Former smoker Tobacco Use: Cigarettes Alcohol: None Drugs: Marijuana, - - extensive past drug use, none for at least 10 years - *Family History Maternal History Items: Cancer - breast, No pertinent history Paternal History Items: - - alcoholism, COPD Review of Systems Constitutional: Reports: Chills, Fever, Night Sweats, Fatigue. Denies: Anorexia , Weakness, Weight Change Eyes: Denies: Vision Change HEENT: Denies: Difficulty Swallowing, Nasal Congestion, Post Nasal Drip, Sinus Congestion, Sinus Drainage, Sore Throat Cardiovascular: Reports: Orthopnea - resolved. Denies: Chest Pain, Chest Tightness, Edema, Light Headedness, Palpitations, Paroxysmal Noc. Dyspnea, Syncope Respiratory: Reports: Cough - occas RETAIL ADMINISTRATIVE ASSISTANT, Shortness of breath upon exertion, Wheezing. Denies: Hemoptysis, Sputum production Gastrointestinal: Denies: Abdominal Pain, Constipation, Diarrhea, Dyspepsia, Hematemesis, Hematochezia, Nausea, Melena, Vomiting Genitourinary: Denies: Dysuria, Frequency, Hematuria, Nocturia, Retention Musculoskeletal: Denies: Back Pain, Neck Pain, Shoulder Pain Skin: Denies: Rash, Wounds Neurological: Denies: Balance problems, Change in Speech, Confusion, Difficulty swallowing, Focal weakness, Numbness, Tingling, Tremor, Seizures Psychiatric: Reports: Anxiety. Denies: Depression, Suicidal Ideations Endocrine: Denies: Change in Body Habitus, Polydipsia, Polyuria Hematologic/ Lymphatic: Denies: Adenopathy, Anemia, Easy Bruising, Easy Bleeding , Hx of blood clot Patient Problems: Active and Suspected Problems Transaminitis (Acute) CAP (community acquired pneumonia) (Acute) COPD exacerbation (Acute) Elevated troponin (Acute) Subjective: Patient was seen and examined. He does not appear to be in any acute distress. Wearing 6 L of oxygen supplementation via nasal cannula. He is very talkative with flight of ideas and seems to have trouble staying on topic. However, he is very pleasant and cooperative. Denies any cough or current shortness of breath. No chest pain. Objective: Clinical Impression(s) from Imaging Studies Chest X-Ray 03/01/18 00:21 IMPRESSION: Chronic interstitial lung disease. Electronically Signed: Brielle Hutchinson MD at 1:51 EDT Tel , Service support , Liver Ultrasound 03/01/18 12:57 IMPRESSION: Normal right upper quadrant ultrasound examination. Electronically Signed: Kwasi Corey MD at 20:28 EDT , Service support , Chest X-Ray 03/02/18 05:59 IMPRESSION: Stable examination. Electronically Signed: Efrain Urbano MD at 11:11 EDT Tel [phone], Service support , - Physical Exam General: Alert, Oriented x3, Cooperative, No apparent distress, Well developed, Well nourished, - - no conversational dyspnea. unkempt HEENT: Atraumatic, PERRLA, Normocephalic Oral: Moist Mucosa, No Gingival or Mucosal Lesions/ Ulcerations Neck: Supple, No Nodes, Trachea Midline, Thyroid Normal Size and Texture Lungs: No rhonchi, No wheeze, No rales, Diminished, - - Symmetric expansion, no dullness to percussion. No tachypnea or accessory muscle use. Cardiovascular: Regular rate, Regular Rhythm, Normal S1, Normal S2, No murmurs, PMI Normal, No rub noted, No Gallop Abdomen: Bowel Sounds Present, Soft, Non Tender, Non-Distended, No hernias noted , - - Multiple surgical scars Extremities: No cyanosis, No edema, Capillary Refill Less than 3 Seconds, Clubbing, Peripheral Pulses Normal Skin: No rashes, No breakdown Musculoskeletal: No Tenderness to Palpation of Joints or Extremities Lymphatic: No Cervical, Supraclavicular, or Inguinal Adenopathy Neurological: Cranial nerves II-XII grossly intact, Neuro grossly intact, Motor Exam 5/5 strength throughout Psych/Mental Status: Appropriate, Anxious, - - Cooperative, very talkative with flight of ideas. Vital Signs Temp Pulse Resp BP Pulse Ox 98.4 F 96 20 H 138/82 H 94 03/02/18 09:50 03/02/18 09:50 03/02/18 09:50 03/02/18 09:50 03/02/18 09:50 Oxygen Flow Rate (L/min) 6 Oxygen Delivery Method Nasal Cannula Weight: 186 lb 8.177 oz Body Mass Index (BMI) 26.7 Intake and Output for Last 24 Hours 02/28/18 03/01/18 03/02/18 23:59 23:59 23:59 Intake Total 2485 / 2485 350 / 350 Output Total 1700 / 1700 Balance 785 / 785 350 / 350 Microbiology Past 72 Hours 03/01/18 11:00 Respiratory Panel (PCR) - Final Mucosa - Nasopharyngeal 03/01/18 06:38 Streptococcus pneumoniae Antigen (M - Final Urine, Clean Catch 03/01/18 06:38 Legionella Antigen - Final Urine, Clean Catch 03/01/18 03:50 Influenza Types A,B Direct FA (REYNA) - Final Mucosa - Nasopharyngeal Laboratory Tests Past 24 Hrs 03/01/18 03/01/18 03/02/18 06:15 06:15 05:12 WBC 20.2 H RBC 4.34 L Hgb 13.5 Hct 39.3 L MCV 90.6 MCH 31.1 MCHC 34.4 RDW 14.3 RDW Differential 46.2 H Plt Count 292 MPV 12.0 Immature Gran % (Auto) 0.200 Neut % (Auto) 88.6 H Lymph % (Auto) 7.2 L [place] % (Auto) 3.9 Eos % (Auto) 0.1 Baso % (Auto) 0.0 Absolute Neuts (auto) 17.9 H Absolute Lymphs (auto) 1.45 Total Counted Not Reportable Sodium Potassium Chloride Carbon Dioxide Anion Gap BUN Creatinine Estim Creat Clear Calc Est GFR (MDRD) Af Amer Est GFR (MDRD) Non-Af BUN/Creatinine Ratio Glucose Calcium Magnesium 2.1 Total Bilirubin Direct Bilirubin AST ALT Alkaline Phosphatase Total Protein Albumin Globulin Hepatitis A IgM Ab Pending Hepatitis A Ab Total Pending Hep Bs Antigen Pending Hep B Core Total Ab Pending Hep B Core IgM Ab Pending Hepatitis C Comment Pending 03/02/18 05:12 WBC RBC Hgb Hct MCV MCH MCHC RDW RDW Differential Plt Count MPV Immature Gran % (Auto) Neut % (Auto) Lymph % (Auto) [place] % (Auto) Eos % (Auto) Baso % (Auto) Absolute Neuts (auto) Absolute Lymphs (auto) Total Counted Sodium 139 Potassium 4.5 Chloride 104 Carbon Dioxide 27.0 Anion Gap 8 BUN 28 H Creatinine 1.13 Estim Creat Clear Calc 75.37 Est GFR (MDRD) Af Amer 86 Est GFR (MDRD) Non-Af 71 BUN/Creatinine Ratio 24.8 H Glucose 142 H Calcium 8.9 Magnesium Total Bilirubin 0.70 Direct Bilirubin 0.17 AST 57 H ALT 83 H Alkaline Phosphatase 95 Total Protein 7.5 Albumin 2.8 L Globulin 4.7 H Hepatitis A IgM Ab Hepatitis A Ab Total Hep Bs Antigen Hep B Core Total Ab Hep B Core IgM Ab Hepatitis C Comment Assessment/Plan All Active Problems Transaminitis (Acute) CAP (community acquired pneumonia) (Acute) COPD exacerbation (Acute) Elevated troponin (Acute) RECOMMENDATIONS 1. Wean oxygen supplementation to keep saturations 88-92%. 2. Encourage incentive spirometer/Acapella 3. Increase activity as tolerated 4. Continue DuoNeb aerosols 5. Check MRSA PCR 6. Obtain high resolution chest CT 7. Ambulatory pulse ox prior to discharge 8. Follow-up in the pulmonary clinic in 2 weeks with RETAIL ADMINISTRATIVE ASSISTANT at which time formal pulmonary function tests can be ordered IMPRESSIONS 1. Acute hypoxic respiratory failure likely secondary to diastolic CHF Improved with diuresis, but no significant improvement in oxygenation as he is still requiring 5-6 L. He was previously on a Venturi mask. Had ?1 IV Lasix. Echo shows preserved LV systolic function. Patient encouraged to modify diet, does have a very high salt diet and liberal fluids at home. Cardiology is following. Patient currently being diuresed with oral Lasix twice daily. Continue to wean oxygen to keep saturations 88-92%. I suspect more related to CHF than an infectious process, however will continue antibiotics pending infectious workup. Ambulatory pulse ox prior to discharge and patient can follow-up in the pulmonary clinic in 2 weeks with RETAIL ADMINISTRATIVE ASSISTANT. 2. Elevated cardiac enzymes Likely secondary to demand ischemia. The patient was in respiratory distress upon arrival and hypoxic. He does not have any chest pain. Cardiology following, possibly perform stress test prior to discharge. 3. Suspected COPD/questionable interstitial lung disease Possible exacerbation but may be more related to CHF. Patient has significant history of smoking and recently quit in December 2017. He has had shortness of breath off and on for quite some time, but significantly worse in the last couple of days. Imaging consistent with chronic interstitial lung disease. 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 No prior inhaler therapy other than as needed albuterol. Patient would benefit from formal pulmonary function tests and a pulmonary stress test as an outpatient to quantify his lung function. Will obtain a CT of the chest. 4. Tobacco abuse in remission/Past drug history/risky behaviors/MRSA infection 2006 Complicates care, management, recovery, and prognosis. Significant smoking history, quit cold turkey December 2017. Encouraged ongoing smoking cessation. No need for nicotine replacement therapy at this time. Hepatitis panel is pending. Thank you for the opportunity to participate in this patient's care, please do not hesitate contact us with any further questions or concerns. This note was generated with [employer] dictation software. It may contain incorrect words, spelling, and punctuation that were not noted in checking the note before signing.
--- NOTE | 2018-03-02 11:46 | CT_ITS ---
STUDY: CT CHEST WITHOUT CONTRAST REASON FOR EXAM: Male, 58 years old. Cough. RADIATION DOSAGE (If Supplied By Facility): CTDIvol = ( 17.54 ) mGy, DLP = ( 659.23 ) mGycm TECHNIQUE: Transaxial imaging was performed without the administration of intravenous contrast material. Individualized dose optimization techniques were used for this CT. COMPARISON: None. FINDINGS: Severe diffuse fibrotic COPD is seen, with end-stage changes of honeycombing throughout both lungs especially in the upper lung [place]. Widespread interstitial thickening and peripheral fibrosis. Widespread patchy groundglass pulmonary density which can be seen simply from fibrotic COPD but active infiltrate and/or pulmonary edema is not excluded. No effusions. Normal heart and pericardium. There are multiple small lymph nodes within the mediastinum, which are normal in size and morphology most compatible with reactive lymph hyperplasia. Normal hilar regions. Normal unenhanced pulmonary arteries. Normal aorta arch and descending thoracic aorta. Normal osseous structures. There is no demonstrated abnormality of the visualized upper abdomen. CT/Chest without Contrast IMPRESSION: Severe end-stage fibrotic COPD. Additionally cannot exclude patchy areas of pulmonary edema or even active infiltrates especially in the lower lobes. Electronically Signed: Kwasi Corey MD at 16:49 EDT , Service support ,
[2018-03-02 12:08] LABS: HEPATITIS B SURFACE AG Negative (Negative); Hepatitis A AB, Total Negative (Negative); Hepatitis A IgM Antibody Negative (Negative); Hepatitis B Core AB IgM Negative (Negative); Hepatitis B Core Ab Total Negative (Negative); Hepatitis C Ab <0.1 s/co ratio (0.0-0.9)
[2018-03-02 13:57] LABS: Hep B Surface Antibodies Non Reactive (.)
[2018-03-02] MEDS: Atorvastatin Calcium 80 MG Tablet PO (20:54)
[2018-03-03] VITALS (17 sets, daily range): BP systolic 125–168; BP diastolic 68–102; PULSE 70–105; RESP 16–22; TEMP 36.6–36.9; O2SAT 88–96
[2018-03-03] MEDS: Enoxaparin 40 MG/0.4 ML Syringe SC (05:29)
[2018-03-03 05:32] LABS: Absolute Lymphocyte Count 2.97 X10^3/ul (0.83-4.51); Absolute Neutrophil Count 16.5 X10^3/uL (2.0-7.7); Basophil# 0.02 X10^3/uL; Basophil% 0.1 % (0-1); Eosinophil# 0.01 X10^3/uL; Hemoglobin 14.5 g/dl (13.0-16.5); Lymphocyte # 2.97 X10^3/ul (4.0); Lymphocyte % 14.3 % (19-41); Mean Corp Hgb Conc 33.7 g/gl (32-36); Mean Corpuscular Hgb 30.9 pg (27.0-32.0); Mean Corpuscular Volume 91.5 fL (80-94); Mean Platelet Vol. 11.7 fl (6.2-12.0); Monocyte# 1.08 X10^3/uL; Monocyte% 5.2 % (0-10); Neutrophil # 16.54 X10^3/uL (2.7-7.7); Platelet Count 310 K/mm3 (150-450); RBC Distribution Width CV 14.8 % (11.6-14.6); RBC Distribution Width SD 48.1 fl (35.1-43.9); White Blood Count 20.7 K/mm3 (4.4-11.0)
[2018-03-03 05:37] LABS: POSITIVE COUNT NO; POSITIVE DIFFERENTIAL NO; POSITIVE MORPHOLOGY NO
[2018-03-03 05:54] LABS: AST(SGOT) 95 U/L (15-37); Alanine Aminotransfer ALT/SGPT 175 U/L (16-61); Albumin, Serum 2.9 g/dL (3.2-5.0); Alkaline Phosphatase 111 U/L (45-117); Anion Gap 7 (5-15); BUN 37 mg/dL (7-18); BUN/Creat Ratio 31.4 RATIO (10-20); Bilirubin, Direct 0.16 mg/dL (0.00-0.30); Calcium,Total 8.7 mg/dL (8.5-10.1); Chloride 101 mmol/L (98-107); Creatinine, Serum 1.18 mg/dL (0.70-1.30); EST Glomerular Filtration Rate 68 mL/min (>60); Est Glom Filt Rate - Afr Amer 82 mL/min (>60); Estimated Creatinine Clearance 72.18 ml/min; Globulin 4.8 g/dL (2.2-4.2); Glucose 102 mg/dL (74-106); Protein, Total 7.7 g/dL (6.4-8.2); Sodium Level 139 mmol/L (136-145)
[2018-03-03] MEDS: Ipratropium/Albuterol Sulfate 3 ML AMPUL.NEB INHALATION ×4 (06:32→18:42)
[2018-03-03 07:05] LABS: M R Staph aureus DNA By PCR Negative (Negative); Probe Check PASS; Specimen Processing Control PASS
[2018-03-03 08:13] LABS: Rheumatoid Factor < 10.0 IU/mL (<15)
[2018-03-03] MEDS: Multivitamins,Ther W-Minerals Tablet 1 TABLET PO (08:30)
[2018-03-03] MEDS: Gabapentin 300 MG Capsule PO ×2 (08:30→16:22)
[2018-03-03] MEDS: predniSONE 20 MG Tablet 40 MG PO (08:30)
[2018-03-03] MEDS: Aspirin E.C. 81 MG Tablet PO (08:30)
--- NOTE | 2018-03-03 09:24 | PCM.PROGNOTE ---
Patient Problems: Active and Suspected Problems Transaminitis (Acute) CAP (community acquired pneumonia) (Acute) COPD exacerbation (Acute) Elevated troponin (Acute) Subjective: The patient was seen and examined. He is lying in bed in no acute distress, visiting with friend. Reports no shortness of breath at rest, however is significantly dyspneic on exertion. Remains on 4-6 L of oxygen supplementation, requiring Venturi mask at times since he is a mouth breather. Denies any sputum production or significant coughing. Recent lab and culture data reviewed. Liver function seems to be worsening. Influenza, blood culture, urine strep/Legionella antigens, and viral respiratory panel all negative. MRSA screening negative. No sputum culture. Objective: Clinical Impression(s) from Imaging Studies Chest CT 03/02/18 11:46 IMPRESSION: Severe end-stage fibrotic COPD. Additionally cannot exclude patchy areas of pulmonary edema or even active infiltrates especially in the lower lobes. Electronically Signed: Kwasi Corey MD at 16:49 EDT , Service support , - Physical Exam General: Alert, Oriented x3, Cooperative, No apparent distress HEENT: Atraumatic, Normocephalic Oral: Moist Mucosa, No Gingival or Mucosal Lesions/ Ulcerations Neck: Supple, Trachea Midline Lungs: No rhonchi, No wheeze, No rales, Diminished - Better airflow today Cardiovascular: Regular rate, Regular Rhythm, Normal S1, Normal S2, No murmurs, No rub noted, No Gallop Abdomen: Bowel Sounds Present, Soft, Non Tender, Non-Distended Extremities: No cyanosis, No edema, Clubbing Skin: No rashes, No breakdown Musculoskeletal: No Tenderness to Palpation of Joints or Extremities Lymphatic: No Cervical, Supraclavicular, or Inguinal Adenopathy Neurological: Neuro grossly intact Psych/Mental Status: Anxious, Restless, - - Cooperative, conversing without difficulty Vital Signs Temp Pulse Resp BP Pulse Ox 97.9 F 79 18 125/81 H 91 03/03/18 05:25 03/03/18 06:49 03/03/18 06:32 03/03/18 05:25 03/03/18 06:32 Oxygen Flow Rate (L/min) 6 Oxygen Delivery Method Venturi Mask Weight: 186 lb 8.177 oz Body Mass Index (BMI) 26.7 Intake and Output for Last 24 Hours 03/01/18 03/02/18 03/03/18 23:59 23:59 23:59 Intake Total 2485 / 2485 1605 / 1605 222 / 222 Output Total 1700 / 1700 Balance 785 / 785 1605 / 1605 222 / 222 Microbiology Past 72 Hours 03/01/18 06:15 Blood Culture - Preliminary Blood Culture (Wb) - Anticubital Right No growth in 48 hours. 03/01/18 11:00 Respiratory Panel (PCR) - Final Mucosa - Nasopharyngeal 03/01/18 06:38 Streptococcus pneumoniae Antigen (M - Final Urine, Clean Catch 03/01/18 06:38 Legionella Antigen - Final Urine, Clean Catch 03/01/18 03:50 Influenza Types A,B Direct FA (REYNA) - Final Mucosa - Nasopharyngeal Laboratory Tests Past 24 Hrs 03/01/18 03/03/18 03/03/18 06:15 05:16 05:16 WBC 20.7 H RBC 4.70 Hgb 14.5 Hct 43.0 MCV 91.5 MCH 30.9 MCHC 33.7 RDW 14.8 H RDW Differential 48.1 H Plt Count 310 MPV 11.7 Immature Gran % (Auto) 0.400 Neut % (Auto) 80.0 H Lymph % (Auto) 14.3 L Rush % (Auto) 5.2 Eos % (Auto) 0.0 Baso % (Auto) 0.1 Absolute Neuts (auto) 16.5 H Absolute Lymphs (auto) 2.97 Total Counted Not Reportable Sodium 139 Potassium 4.0 Chloride 101 Carbon Dioxide 31.0 Anion Gap 7 BUN 37 H Creatinine 1.18 Estim Creat Clear Calc 72.18 Est GFR (MDRD) Af Amer 82 Est GFR (MDRD) Non-Af 68 BUN/Creatinine Ratio 31.4 H Glucose 102 Calcium 8.7 Total Bilirubin 0.50 Direct Bilirubin 0.16 AST 95 H ALT 175 H Alkaline Phosphatase 111 Total Protein 7.7 Albumin 2.9 L Globulin 4.8 H Tzsut-2-Ebvsdecmdli Rheumatoid Factor Cycl Citrul Peptide IgG BILL Screen c-ANCA Antibody p-ANCA Antibody STEPH-1 Antibody SS-A/Ro IgG Antibody SS-B/La IgG Antibody Sm (Herrera) Antibody MANUFACTURING INTERN Antibody Scl-70 Scleroderma Ab Double Strand DNA Ab Centromere B Antibody Hepatitis A IgM Ab Negative Hepatitis A Ab Total Negative Hep Bs Antigen Negative Hep B Core Total Ab Negative Hep B Core IgM Ab Negative Hepatitis C Ab Confirm <0.1 Hepatitis C Comment Comment MRSA (PCR) 03/03/18 03/03/18 03/03/18 05:16 05:32 08:30 WBC RBC Hgb Hct MCV MCH MCHC RDW RDW Differential Plt Count MPV Immature Gran % (Auto) Neut % (Auto) Lymph % (Auto) Rush % (Auto) Eos % (Auto) Baso % (Auto) Absolute Neuts (auto) Absolute Lymphs (auto) Total Counted Sodium Potassium Chloride Carbon Dioxide Anion Gap BUN Creatinine Estim Creat Clear Calc Est GFR (MDRD) Af Amer Est GFR (MDRD) Non-Af BUN/Creatinine Ratio Glucose Calcium Total Bilirubin Direct Bilirubin AST ALT Alkaline Phosphatase Total Protein Albumin Globulin Rhypc-5-Fzinndfmstf Pending Rheumatoid Factor < 10.0 Cycl Citrul Peptide IgG BILL Screen Pending c-ANCA Antibody p-ANCA Antibody STEPH-1 Antibody Pending SS-A/Ro IgG Antibody Pending SS-B/La IgG Antibody Pending Sm (Herrera) Antibody Pending MANUFACTURING INTERN Antibody Pending Scl-70 Scleroderma Ab Pending Double Strand DNA Ab Pending Centromere B Antibody Pending Hepatitis A IgM Ab Hepatitis A Ab Total Hep Bs Antigen Hep B Core Total Ab Hep B Core IgM Ab Hepatitis C Ab Confirm Hepatitis C Comment MRSA (PCR) Negative 03/03/18 03/03/18 08:30 08:30 WBC RBC Hgb Hct MCV MCH MCHC RDW RDW Differential Plt Count MPV Immature Gran % (Auto) Neut % (Auto) Lymph % (Auto) Rush % (Auto) Eos % (Auto) Baso % (Auto) Absolute Neuts (auto) Absolute Lymphs (auto) Total Counted Sodium Potassium Chloride Carbon Dioxide Anion Gap BUN Creatinine Estim Creat Clear Calc Est GFR (MDRD) Af Amer Est GFR (MDRD) Non-Af BUN/Creatinine Ratio Glucose Calcium Total Bilirubin Direct Bilirubin AST ALT Alkaline Phosphatase Total Protein Albumin Globulin Cizlr-6-Kydimbczxah Rheumatoid Factor Cycl Citrul Peptide IgG Pending BILL Screen c-ANCA Antibody Pending p-ANCA Antibody Pending STEPH-1 Antibody SS-A/Ro IgG Antibody SS-B/La IgG Antibody Sm (Herrera) Antibody MANUFACTURING INTERN Antibody Scl-70 Scleroderma Ab Double Strand DNA Ab Centromere B Antibody Hepatitis A IgM Ab Hepatitis A Ab Total Hep Bs Antigen Hep B Core Total Ab Hep B Core IgM Ab Hepatitis C Ab Confirm Hepatitis C Comment MRSA (PCR) Medical Necessity - Tobacco Use Smoking Status: Former smoker Tobacco Use: Cigarettes Assessment/Plan All Active Problems Transaminitis (Acute) CAP (community acquired pneumonia) (Acute) COPD exacerbation (Acute) Elevated troponin (Acute) RECOMMENDATIONS 1. Wean oxygen supplementation to keep saturations 88-92%. 2. Encourage incentive spirometer/Acapella 3. Increase activity as tolerated 4. Continue DuoNeb aerosols 5. Await immunology workup, can follow-up in the pulmonary clinic for results 6. Ambulatory pulse ox prior to discharge 7. Follow-up in the pulmonary clinic in 2 weeks with NICKEL PLATER at which time formal pulmonary function tests can be ordered. 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 States he can do light duty that is isolated from any dangerous areas. IMPRESSIONS 1. Acute hypoxic respiratory failure likely secondary to diastolic CHF Improved with diuresis, but no significant improvement in oxygenation as he is still requiring 5-6 L. He was previously on a Venturi mask, but this was mostly secondary to mouth breathing. Had ?1 IV Lasix. Echo shows preserved LV systolic function. Patient encouraged to modify diet, does have a very high salt diet and liberal fluids at home. Cardiology is following. Patient currently being diuresed with oral Lasix twice daily. Continue to wean oxygen to keep saturations 88-92%. Unclear if infectious process, remains on antibiotics. Ambulatory pulse ox prior to discharge and patient can follow-up in the pulmonary clinic in 2 weeks with NICKEL PLATER. 2. Elevated cardiac enzymes Likely secondary to demand ischemia. The patient was in respiratory distress upon arrival and hypoxic. He does not have any chest pain. Cardiology following, possibly perform stress test prior to discharge. 3. Suspected COPD/questionable interstitial lung disease Possible exacerbation but may be more related to CHF or interstitial disease. Significant smoking history, recently quit in December 2017. CT showing extensive, severe fibrotic changes, possibly pulmonary edema or infiltrates. 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 Immunology workup has been ordered. No prior inhaler therapy other than as needed albuterol. Patient would benefit from formal pulmonary function tests and a pulmonary stress test as an outpatient to quantify his lung function and assess for ongoing supplemental oxygen needs. 4. Tobacco abuse in remission/Past drug history/risky behaviors/MRSA infection 2006/elevated LFTs Complicates care, management, recovery, and prognosis. Significant smoking history, quit cold turkey December 2017. Encouraged ongoing smoking cessation. No need for nicotine replacement therapy at this time. Hepatitis panel is pending. Thank you for the opportunity to participate in this patient's care, please do not hesitate contact us with any further questions or concerns. This note was generated with [employer] dictation software. It may contain incorrect words, spelling, and punctuation that were not noted in checking the note before signing.
--- NOTE | 2018-03-03 09:36 | PN_ITS ---
Patient Problems: Active and Suspected Problems Transaminitis (Acute) CAP (community acquired pneumonia) (Acute) COPD exacerbation (Acute) Elevated troponin (Acute) Subjective: The patient was seen and examined. He is lying in bed in no acute distress, visiting with friend. Reports no shortness of breath at rest, however is significantly dyspneic on exertion. Remains on 4-6 L of oxygen supplementation , requiring Venturi mask at times since he is a mouth breather. Denies any sputum production or significant coughing. Recent lab and culture data reviewed. Liver function seems to be worsening. Influenza, blood culture, urine strep/Legionella antigens, and viral respiratory panel all negative. MRSA screening negative. No sputum culture. Objective: Clinical Impression(s) from Imaging Studies Chest CT 03/02/18 11:46 IMPRESSION: Severe end-stage fibrotic COPD. Additionally cannot exclude patchy areas of pulmonary edema or even active infiltrates especially in the lower lobes. Electronically Signed: Kwasi Corey MD at 16:49 EDT , Service support , - Physical Exam General: Alert, Oriented x3, Cooperative, No apparent distress HEENT: Atraumatic, Normocephalic Oral: Moist Mucosa, No Gingival or Mucosal Lesions/ Ulcerations Neck: Supple, Trachea Midline Lungs: No rhonchi, No wheeze, No rales, Diminished - Better airflow today Cardiovascular: Regular rate, Regular Rhythm, Normal S1, Normal S2, No murmurs, No rub noted, No Gallop Abdomen: Bowel Sounds Present, Soft, Non Tender, Non-Distended Extremities: No cyanosis, No edema, Clubbing Skin: No rashes, No breakdown Musculoskeletal: No Tenderness to Palpation of Joints or Extremities Lymphatic: No Cervical, Supraclavicular, or Inguinal Adenopathy Neurological: Neuro grossly intact Psych/Mental Status: Anxious, Restless, - - Cooperative, conversing without difficulty Vital Signs Temp Pulse Resp BP Pulse Ox 97.9 F 79 18 125/81 H 91 03/03/18 05:25 03/03/18 06:49 03/03/18 06:32 03/03/18 05:25 03/03/18 06:32 Oxygen Flow Rate (L/min) 6 Oxygen Delivery Method Venturi Mask Weight: 186 lb 8.177 oz Body Mass Index (BMI) 26.7 Intake and Output for Last 24 Hours 03/01/18 03/02/18 03/03/18 23:59 23:59 23:59 Intake Total 2485 / 2485 1605 / 1605 222 / 222 Output Total 1700 / 1700 Balance 785 / 785 1605 / 1605 222 / 222 Microbiology Past 72 Hours 03/01/18 06:15 Blood Culture - Preliminary Blood Culture (Wb) - Anticubital Right No growth in 48 hours. 03/01/18 11:00 Respiratory Panel (PCR) - Final Mucosa - Nasopharyngeal 03/01/18 06:38 Streptococcus pneumoniae Antigen (M - Final Urine, Clean Catch 03/01/18 06:38 Legionella Antigen - Final Urine, Clean Catch 03/01/18 03:50 Influenza Types A,B Direct FA (REYNA) - Final Mucosa - Nasopharyngeal Laboratory Tests Past 24 Hrs 03/01/18 03/03/18 03/03/18 06:15 05:16 05:16 WBC 20.7 H RBC 4.70 Hgb 14.5 Hct 43.0 MCV 91.5 MCH 30.9 MCHC 33.7 RDW 14.8 H RDW Differential 48.1 H Plt Count 310 MPV 11.7 Immature Gran % (Auto) 0.400 Neut % (Auto) 80.0 H Lymph % (Auto) 14.3 L Lynn % (Auto) 5.2 Eos % (Auto) 0.0 Baso % (Auto) 0.1 Absolute Neuts (auto) 16.5 H Absolute Lymphs (auto) 2.97 Total Counted Not Reportable Sodium 139 Potassium 4.0 Chloride 101 Carbon Dioxide 31.0 Anion Gap 7 BUN 37 H Creatinine 1.18 Estim Creat Clear Calc 72.18 Est GFR (MDRD) Af Amer 82 Est GFR (MDRD) Non-Af 68 BUN/Creatinine Ratio 31.4 H Glucose 102 Calcium 8.7 Total Bilirubin 0.50 Direct Bilirubin 0.16 AST 95 H ALT 175 H Alkaline Phosphatase 111 Total Protein 7.7 Albumin 2.9 L Globulin 4.8 H Mzoui-8-Pzkzfuxotas Rheumatoid Factor Cycl Citrul Peptide IgG BILL Screen c-ANCA Antibody p-ANCA Antibody STEPH-1 Antibody SS-A/Ro IgG Antibody SS-B/La IgG Antibody Sm (Herrera) Antibody [place] Antibody Scl-70 Scleroderma Ab Double Strand DNA Ab Centromere B Antibody Hepatitis A IgM Ab Negative Hepatitis A Ab Total Negative Hep Bs Antigen Negative Hep B Core Total Ab Negative Hep B Core IgM Ab Negative Hepatitis C Ab Confirm <0.1 Hepatitis C Comment Comment MRSA (PCR) 03/03/18 03/03/18 03/03/18 05:16 05:32 08:30 WBC RBC Hgb Hct MCV MCH MCHC RDW RDW Differential Plt Count MPV Immature Gran % (Auto) Neut % (Auto) Lymph % (Auto) Lynn % (Auto) Eos % (Auto) Baso % (Auto) Absolute Neuts (auto) Absolute Lymphs (auto) Total Counted Sodium Potassium Chloride Carbon Dioxide Anion Gap BUN Creatinine Estim Creat Clear Calc Est GFR (MDRD) Af Amer Est GFR (MDRD) Non-Af BUN/Creatinine Ratio Glucose Calcium Total Bilirubin Direct Bilirubin AST ALT Alkaline Phosphatase Total Protein Albumin Globulin Pamsb-3-Nimjyfzdmzt Pending Rheumatoid Factor < 10.0 Cycl Citrul Peptide IgG BILL Screen Pending c-ANCA Antibody p-ANCA Antibody STEPH-1 Antibody Pending SS-A/Ro IgG Antibody Pending SS-B/La IgG Antibody Pending Sm (Herrera) Antibody Pending [place] Antibody Pending Scl-70 Scleroderma Ab Pending Double Strand DNA Ab Pending Centromere B Antibody Pending Hepatitis A IgM Ab Hepatitis A Ab Total Hep Bs Antigen Hep B Core Total Ab Hep B Core IgM Ab Hepatitis C Ab Confirm Hepatitis C Comment MRSA (PCR) Negative 03/03/18 03/03/18 08:30 08:30 WBC RBC Hgb Hct MCV MCH MCHC RDW RDW Differential Plt Count MPV Immature Gran % (Auto) Neut % (Auto) Lymph % (Auto) Lynn % (Auto) Eos % (Auto) Baso % (Auto) Absolute Neuts (auto) Absolute Lymphs (auto) Total Counted Sodium Potassium Chloride Carbon Dioxide Anion Gap BUN Creatinine Estim Creat Clear Calc Est GFR (MDRD) Af Amer Est GFR (MDRD) Non-Af BUN/Creatinine Ratio Glucose Calcium Total Bilirubin Direct Bilirubin AST ALT Alkaline Phosphatase Total Protein Albumin Globulin Xaghb-5-Qexygsozueo Rheumatoid Factor Cycl Citrul Peptide IgG Pending BILL Screen c-ANCA Antibody Pending p-ANCA Antibody Pending STEPH-1 Antibody SS-A/Ro IgG Antibody SS-B/La IgG Antibody Sm (Herrera) Antibody [place] Antibody Scl-70 Scleroderma Ab Double Strand DNA Ab Centromere B Antibody Hepatitis A IgM Ab Hepatitis A Ab Total Hep Bs Antigen Hep B Core Total Ab Hep B Core IgM Ab Hepatitis C Ab Confirm Hepatitis C Comment MRSA (PCR) Medical Necessity - Tobacco Use Smoking Status: Former smoker Tobacco Use: Cigarettes Assessment/Plan All Active Problems Transaminitis (Acute) CAP (community acquired pneumonia) (Acute) COPD exacerbation (Acute) Elevated troponin (Acute) RECOMMENDATIONS 1. Wean oxygen supplementation to keep saturations 88-92%. 2. Encourage incentive spirometer/Acapella 3. Increase activity as tolerated 4. Continue DuoNeb aerosols 5. Await immunology workup, can follow-up in the pulmonary clinic for results 6. Ambulatory pulse ox prior to discharge 7. Follow-up in the pulmonary clinic in 2 weeks with CORRECTIONAL COUNSELOR/CASE MANAGER at which time formal pulmonary function tests can be ordered. 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 States he can do light duty that is isolated from any dangerous areas. IMPRESSIONS 1. Acute hypoxic respiratory failure likely secondary to diastolic CHF Improved with diuresis, but no significant improvement in oxygenation as he is still requiring 5-6 L. He was previously on a Venturi mask, but this was mostly secondary to mouth breathing. Had ?1 IV Lasix. Echo shows preserved LV systolic function. Patient encouraged to modify diet, does have a very high salt diet and liberal fluids at home. Cardiology is following. Patient currently being diuresed with oral Lasix twice daily. Continue to wean oxygen to keep saturations 88-92%. Unclear if infectious process, remains on antibiotics. Ambulatory pulse ox prior to discharge and patient can follow-up in the pulmonary clinic in 2 weeks with CORRECTIONAL COUNSELOR/CASE MANAGER. 2. Elevated cardiac enzymes Likely secondary to demand ischemia. The patient was in respiratory distress upon arrival and hypoxic. He does not have any chest pain. Cardiology following, possibly perform stress test prior to discharge. 3. Suspected COPD/questionable interstitial lung disease Possible exacerbation but may be more related to CHF or interstitial disease. Significant smoking history, recently quit in December 2017. CT showing extensive , severe fibrotic changes, possibly pulmonary edema or infiltrates. 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 Immunology workup has been ordered. No prior inhaler therapy other than as needed albuterol. Patient would benefit from formal pulmonary function tests and a pulmonary stress test as an outpatient to quantify his lung function and assess for ongoing supplemental oxygen needs. 4. Tobacco abuse in remission/Past drug history/risky behaviors/MRSA infection 2006/elevated LFTs Complicates care, management, recovery, and prognosis. Significant smoking history, quit cold turkey December 2017. Encouraged ongoing smoking cessation. No need for nicotine replacement therapy at this time. Hepatitis panel is pending. Thank you for the opportunity to participate in this patient's care, please do not hesitate contact us with any further questions or concerns. This note was generated with [employer] dictation software. It may contain incorrect words, spelling, and punctuation that were not noted in checking the note before signing.
[2018-03-03] MEDS: Carvedilol 3.125 MG TABLET PO ×2 (09:48→21:09)
[2018-03-03] MEDS: FLUoxetine 20 MG Capsule PO ×2 (09:48→21:10)
[2018-03-03] MEDS: Furosemide 40 MG Tablet PO (09:48)
[2018-03-03] MEDS: Ceftriaxone 1 GM/50 ML BAG IV (09:48)
[2018-03-03] MEDS: buPROPion (XL) 150 MG TABLET.XL PO (09:48)
--- NOTE | 2018-03-03 12:20 | PCM.PN.HOSP ---
Patient Problems: Active and Suspected Problems Transaminitis (Acute) CAP (community acquired pneumonia) (Acute) COPD exacerbation (Acute) Elevated troponin (Acute) Subjective: Patient has no acute events overnight per self and per nursing report. CT of the chest was performed yesterday and discussed with patient and pulmonary medicine with notable diffuse bilateral emphysematous changes, bolus and likely end-stage fibrotic and subpleural reticular changes in addition to bilateral patchy groundglass changes. Upon awakening to use the restroom patient states that he has not been sleeping well and secondary to being placed on the bed alarm overnight was very startled but otherwise no acute complaints. He states he is doing better with less dyspnea but does still have exertional dyspnea more readily than baseline. 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 Patient denies fevers, chills, nausea, emesis, abdominal pain, chest pain. Objective: Physical Examination: General: awake, alert, oriented x 3 and cooperative, seated upright in bed, NAD. Skin: normal color, turgor, no icterus, cyanosis. HEENT: AT/NC, EOMI, PERRLA, MMM. Lungs: Improved BS, still diminished, > bases, no rales, ronchi or wheezing. Heart: Regular rate and rhythm; no gallop, rub audible. Abdomen: soft, NTTP, ND, normal BS. Extremities: no cyanosis, clubbing, or edema. Neurological: patient awake, alert, oriented x 3; cognitive function intact; pupils equally reactive to light and accomodation; cranial nerves II-XII grossly normal, moving all 4 extremities, no focal deficits, strength improved, mildly to moderately to severely globally decreased. Psychiatric: affect appears normal, no acute evidence of depressive or anxiety feelings. Vitals/I&O's: Vital Signs Temp Pulse Resp BP Pulse Ox 97.8 F 101 H 20 H 137/83 H 94 03/03/18 11:25 03/03/18 11:25 03/03/18 11:25 03/03/18 11:25 03/03/18 11:25 Oxygen Flow Rate (L/min) 5 Oxygen Delivery Method Nasal Cannula Weight: 186 lb 8.177 oz Body Mass Index (BMI) 26.7 Intake and Output for Last 24 Hours 03/01/18 03/02/18 03/03/18 23:59 23:59 23:59 Intake Total 2485 / 2485 1605 / 1605 1109 / 1109 Output Total 1700 / 1700 Balance 785 / 785 1605 / 1605 1109 / 1109 Microbiology Past 72 Hours 03/01/18 06:15 Blood Culture (Wb) - Anticubital Right Blood Culture - Preliminary No growth in 48 hours. 03/01/18 11:00 Mucosa - Nasopharyngeal Respiratory Panel (PCR) - Final 03/01/18 06:38 Urine, Clean Catch Streptococcus pneumoniae Antigen (M - Final 03/01/18 06:38 Urine, Clean Catch Legionella Antigen - Final 03/01/18 03:50 Mucosa - Nasopharyngeal Influenza Types A,B Direct FA (REYNA) - Final Laboratory Results 03/01/18 06:15: Hepatitis A IgM Ab Negative, Hepatitis A Ab Total Negative, Hep Bs Antigen Negative, Hep B Core Total Ab Negative, Hep B Core IgM Ab Negative, Hepatitis C Ab Confirm <0.1, Hepatitis C Comment Comment 03/03/18 05:16: WBC 20.7 H, RBC 4.70, Hgb 14.5, Hct 43.0, MCV 91.5, MCH 30.9, MCHC 33.7, RDW 14.8 H, RDW Differential 48.1 H, Plt Count 310, MPV 11.7, Immature Gran % (Auto) 0.400, Neut % (Auto) 80.0 H, Lymph % (Auto) 14.3 L, [place] % (Auto) 5.2, Eos % (Auto) 0.0, Baso % (Auto) 0.1, Absolute Neuts (auto) 16.5 H, Absolute Lymphs (auto) 2.97, Total Counted Not Reportable 03/03/18 05:16: Sodium 139, Potassium 4.0, Chloride 101, Carbon Dioxide 31.0, Anion Gap 7, BUN 37 H, Creatinine 1.18, Estim Creat Clear Calc 72.18, Est GFR (MDRD) Af Amer 82, Est GFR (MDRD) Non-Af 68, BUN/Creatinine Ratio 31.4 H, Glucose 102, Calcium 8.7, Total Bilirubin 0.50, Direct Bilirubin 0.16, AST 95 H, ALT 175 H, Alkaline Phosphatase 111, Total Protein 7.7, Albumin 2.9 L, Globulin 4.8 H 03/03/18 05:16: Rheumatoid Factor < 10.0 03/03/18 05:32: MRSA (PCR) Negative 03/03/18 08:30: [id number] Pending, BILL Screen Pending, STEPH-1 Antibody Pending, SS-A/Ro IgG Antibody Pending, SS-B/La IgG Antibody Pending, Sm (Herrera) Antibody Pending, AIRPLANE GAS TANK LINER ASSEMBLER Antibody Pending, Scl-70 Scleroderma Ab Pending, Double Strand DNA Ab Pending, Centromere B Antibody Pending 03/03/18 08:30: Cycl Citrul Peptide IgG Pending 03/03/18 08:30: c-ANCA Antibody Pending, p-ANCA Antibody Pending Current Medications Albuterol/Ipratropium (Duoneb) 3 ml INHALATION Q4H.RT [facility] Last Admin: 03/03/18 10:47 Dose: 3 ml Aspirin (Ecotrin) 81 mg PO DAILY@0800 [facility] Last Admin: 03/03/18 08:30 Dose: 81 mg Atorvastatin Calcium (Lipitor) 80 mg PO QHS [facility] Last Admin: 03/02/18 20:54 Dose: 80 mg Bupropion HCl (Wellbutrin Xl) 150 mg PO DAILY [facility] Last Admin: 03/03/18 09:48 Dose: 150 mg Carvedilol (Coreg) 3.125 mg PO BID [facility] Last Admin: 03/03/18 09:48 Dose: 3.125 mg Enoxaparin Sodium (Lovenox) 40 mg SC DAILY@0600 [facility] Last Admin: 03/03/18 05:29 Dose: 40 mg Fluoxetine HCl (Prozac) 20 mg PO BID [facility] Last Admin: 03/03/18 09:48 Dose: 20 mg Furosemide (Lasix) 40 mg PO BID@1000,1800 [facility] Last Admin: 03/03/18 09:48 Dose: 40 mg [facility]) [facility] Last Admin: 03/03/18 08:30 Dose: 300 mg Ceftriaxone Sodium (Rocephin) 1 gm in 50 mls @ 100 mls/hr IV Q24 [facility] Last Admin: 03/03/18 09:48 Dose: 100 mls/hr Multivitamins/Minerals (Multivitamin With Minerals) [facility] Last Admin: 03/03/18 08:30 Dose: 1 tablet Nutritional Formula (Lactose Free) (Ensure Enlive) 120 ml PO 4X/DAY [facility] Last Admin: 03/03/18 09:48 Dose: 120 ml Prednisone () 40 mg PO DAILY@0800 [facility] Last Admin: 03/03/18 08:30 Dose: 40 mg Sodium Chloride () 5 - 30 ml IV UD PRN PRN Reason: SALINE FLUSH Last Admin: 03/02/18 10:03 Dose: 10 ml Zolpidem Tartrate (Ambien (Generic)) 5 mg PO QHS PRN PRN PRN Reason: SLEEP Last Admin: 03/02/18 20:56 Dose: 5 mg Medical Necessity - Tobacco Use Smoking Status: Former smoker Tobacco Use: Cigarettes Assessment/Plan All Active Problems Transaminitis (Acute) CAP (community acquired pneumonia) (Acute) COPD exacerbation (Acute) Elevated troponin (Acute) The patient is a 58 y/o M w/ PMHx: Anxiety and Depression, History of Tobacco use, Suspected Chronic COPD, BPH, Chronic Neuropathy who presents to the [facility] ED on 03/01/18 with history of ongoing dyspnea, wheezing, unable to catch his breath over the last several days, worsening. (1) Acute Hypoxic Respiratory Failure secondary to Acute on Suspected Chronic COPD exacerbation w/ ? CAP and ? Diastolic CHF Exacerbation: CXR w/ chronic changes/interstitial disease, CBC on admission w/ WBC 18 with L shift. Increased work of breathing, accessory muscle usage, conversational dyspnea present upon evaluation. Admitted to PCU, maintained on oxygen with wean as tolerated to room air, continued ATC duonebs, IV methylprednisolone w/ 03/02/18 prednisone transition, HOB, IS parameters, IV Azithromycin and Rocephin given presentation w/ per discussion with Pulmonary planned 7 day course of abx therapy, negative antigens, negative viral PCR, requested sputum cultures but unable to give sample. Cardiology consultation secondary to elevated enzymes, felt likely CHF Exacerbation, given IV lasix initially and transitioned to oral BID lasix 40 mg, asa, statin, BB continued, ECHO w/ normal LV size, mild eccentric LVH, LV systolic function normal, EF 60%, transmitral diastolic flow velocities suggestive of mild stage I diastolic dysfunction, pulmonary artery systolic pressure 38 mmHg, repeat AM CXR pending. Pulmonary consulted given despite interventions still requiring notable oxygen supplementation and VM placement w/ felt acute hypoxic respiratory failure more likely to underlying pulmonary disease severity and possible infection with presumptive COPD exacerbation with a small component of his dyspnea complaint possibly secondary to diastolic heart failure with decompensation with imaging obtained per pulmonary recommendation notable for CT of the chest was performed yesterday and discussed with patient and pulmonary medicine with notable diffuse bilateral emphysematous changes, bolus and likely end-stage fibrotic and subpleural reticular changes in addition to bilateral patchy ground-glass changes. Per pulmonary patient likely has had long-standing hypoxia and will require walking oximetry study prior to discharge to home. Given severity of interstitial fibrotic changes on the CT of the chest and diffuse bilateral emphysematous changes pulmonary ordered alpha-1 antitrypsin levels in addition to BILL, rheumatoid factor, anti-CCP antibodies, ANCA which are pending. Once clinically appropriate with plan follow-up early with very and once acute presentation resolves will need PFTs performed. (2) Elevated Cardiac Enzymes: EKG in ED w/ no acute evidence of ischemia, CXR w/ chronic interstitial lung disease. Trop elevated, 0.193. Will maintain on a monitored bed, serial cardiac enzymes w/ 0.193-->0.238-->0.144. Magnesium 2.1. Continue medical management w/ addition asa, statin w/ AM FLP marked aside low HDL. Cardiology consulted. ECHO w/ normal LV size, mild eccentric LVH, LV systolic function normal, EF 60%, transmitral diastolic flow velocities suggestive of mild stage I diastolic dysfunction, pulmonary artery systolic pressure 38 mmHg. Maintained on asa, statin, BB, lasix as noted above. ASA, NG, morphine. Mag 2.1. Consider stress testing prior to discharge once pulmonary status improved; however given current status suspect will need to be arranged outpatient but will discuss with cardiology. Additionally given patient further elevated BUN and suspect possible diastolic failure is very small component for acute hypoxic respiratory failure presentation will discuss possibility of alteration to Lasix versus discontinuation. (3) Hypokalemia: Admission K+ 3.4, supplementation given, repeat level in AM. (4) Hyperglycemia: Admission glucose 253, HgBA1c obtained, 5.9%. (5) Mildly Elevated LFTs: Admission AST/ALT 49/64, Hepatitis panel unremarkable, Liver US unremarkable, 03/02/18 CMP w/ AST/ALT similar 57/83-->03/03/18 AST/ALT 95/175. (6) Anxiety and Depression: Maintain on home regimen wellbutrin, prozac. (7) ? Polysubstance Use: UDS w/ cannabis, encourage cessation. UDS also + MDMA/meth, on wellbutrin. (8) DVT Prophylaxis: SCDs, lovenox. Code Visit Inpatient E&M: 87000 Subs Hosp L2
--- NOTE | 2018-03-03 12:27 | PN_ITS ---
Patient Problems: Active and Suspected Problems Transaminitis (Acute) CAP (community acquired pneumonia) (Acute) COPD exacerbation (Acute) Elevated troponin (Acute) Subjective: Patient has no acute events overnight per self and per nursing report. CT of the chest was performed yesterday and discussed with patient and pulmonary medicine with notable diffuse bilateral emphysematous changes, bolus and likely end-stage fibrotic and subpleural reticular changes in addition to bilateral patchy groundglass changes. Upon awakening to use the restroom patient states that he has not been sleeping well and secondary to being placed on the bed alarm overnight was very startled but otherwise no acute complaints. He states he is doing better with less dyspnea but does still have exertional dyspnea more readily than baseline. 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 Patient denies fevers, chills, nausea, emesis, abdominal pain, chest pain. Objective: Physical Examination: General: awake, alert, oriented x 3 and cooperative, seated upright in bed, NAD. Skin: normal color, turgor, no icterus, cyanosis. HEENT: AT/NC, EOMI, PERRLA, MMM. Lungs: Improved BS, still diminished, > bases, no rales, ronchi or wheezing. Heart: Regular rate and rhythm; no gallop, rub audible. Abdomen: soft, NTTP, ND, normal BS. Extremities: no cyanosis, clubbing, or edema. Neurological: patient awake, alert, oriented x 3; cognitive function intact; pupils equally reactive to light and accomodation; cranial nerves II-XII grossly normal, moving all 4 extremities, no focal deficits, strength improved, mildly to moderately to severely globally decreased. Psychiatric: affect appears normal, no acute evidence of depressive or anxiety feelings. Vitals/I&O's: Vital Signs Temp Pulse Resp BP Pulse Ox 97.8 F 101 H 20 H 137/83 H 94 03/03/18 11:25 03/03/18 11:25 03/03/18 11:25 03/03/18 11:25 03/03/18 11:25 Oxygen Flow Rate (L/min) 5 Oxygen Delivery Method Nasal Cannula Weight: 186 lb 8.177 oz Body Mass Index (BMI) 26.7 Intake and Output for Last 24 Hours 03/01/18 03/02/18 03/03/18 23:59 23:59 23:59 Intake Total 2485 / 2485 1605 / 1605 1109 / 1109 Output Total 1700 / 1700 Balance 785 / 785 1605 / 1605 1109 / 1109 Microbiology Past 72 Hours 03/01/18 06:15 Blood Culture (Wb) - Anticubital Right Blood Culture - Preliminary No growth in 48 hours. 03/01/18 11:00 Mucosa - Nasopharyngeal Respiratory Panel (PCR) - Final 03/01/18 06:38 Urine, Clean Catch Streptococcus pneumoniae Antigen (M - Final 03/01/18 06:38 Urine, Clean Catch Legionella Antigen - Final 03/01/18 03:50 Mucosa - Nasopharyngeal Influenza Types A,B Direct FA (REYNA) - Final Laboratory Results 03/01/18 06:15: Hepatitis A IgM Ab Negative, Hepatitis A Ab Total Negative, Hep Bs Antigen Negative, Hep B Core Total Ab Negative, Hep B Core IgM Ab Negative, Hepatitis C Ab Confirm <0.1, Hepatitis C Comment Comment 03/03/18 05:16: WBC 20.7 H, RBC 4.70, Hgb 14.5, Hct 43.0, MCV 91.5, MCH 30.9, MCHC 33.7, RDW 14.8 H, RDW Differential 48.1 H, Plt Count 310, MPV 11.7, Immature Gran % (Auto) 0.400, Neut % (Auto) 80.0 H, Lymph % (Auto) 14.3 L, [place] % (Auto) 5.2, Eos % (Auto) 0.0, Baso % (Auto) 0.1, Absolute Neuts (auto) 16.5 H , Absolute Lymphs (auto) 2.97, Total Counted Not Reportable 03/03/18 05:16: Sodium 139, Potassium 4.0, Chloride 101, Carbon Dioxide 31.0, Anion Gap 7, BUN 37 H, Creatinine 1.18, Estim Creat Clear Calc 72.18, Est GFR ( MDRD) Af Amer 82, Est GFR (MDRD) Non-Af 68, BUN/Creatinine Ratio 31.4 H, Glucose 102, Calcium 8.7, Total Bilirubin 0.50, Direct Bilirubin 0.16, AST 95 H , ALT 175 H, Alkaline Phosphatase 111, Total Protein 7.7, Albumin 2.9 L, Globulin 4.8 H 03/03/18 05:16: Rheumatoid Factor < 10.0 03/03/18 05:32: MRSA (PCR) Negative 03/03/18 08:30: [id number] Pending, BILL Screen Pending, STEPH-1 Antibody Pending, SS-A/Ro IgG Antibody Pending, SS-B/La IgG Antibody Pending, Sm (Herrera) Antibody Pending, DIAMOND CLEAVER Antibody Pending, Scl-70 Scleroderma Ab Pending, Double Strand DNA Ab Pending, Centromere B Antibody Pending 03/03/18 08:30: Cycl Citrul Peptide IgG Pending 03/03/18 08:30: c-ANCA Antibody Pending, p-ANCA Antibody Pending Current Medications Albuterol/Ipratropium (Duoneb) 3 ml INHALATION Q4H.RT [facility] Last Admin: 03/03/18 10:47 Dose: 3 ml Aspirin (Ecotrin) 81 mg PO DAILY@0800 [facility] Last Admin: 03/03/18 08:30 Dose: 81 mg Atorvastatin Calcium (Lipitor) 80 mg PO QHS [facility] Last Admin: 03/02/18 20:54 Dose: 80 mg Bupropion HCl (Wellbutrin Xl) 150 mg PO DAILY [facility] Last Admin: 03/03/18 09:48 Dose: 150 mg Carvedilol (Coreg) 3.125 mg PO BID [facility] Last Admin: 03/03/18 09:48 Dose: 3.125 mg Enoxaparin Sodium (Lovenox) 40 mg SC DAILY@0600 [facility] Last Admin: 03/03/18 05:29 Dose: 40 mg Fluoxetine HCl (Prozac) 20 mg PO BID [facility] Last Admin: 03/03/18 09:48 Dose: 20 mg Furosemide (Lasix) 40 mg PO BID@1000,1800 [facility] Last Admin: 03/03/18 09:48 Dose: 40 mg [facility] Last Admin: 03/03/18 08:30 Dose: 300 mg Ceftriaxone Sodium (Rocephin) 1 gm in 50 mls @ 100 mls/hr IV Q24 [facility] Last Admin: 03/03/18 09:48 Dose: 100 mls/hr Multivitamins/Minerals ([facility]ivitamin With Minerals) [facility] Last Admin: 03/03/18 08:30 Dose: 1 tablet Nutritional Formula (Lactose Free) (Ensure Enlive) 120 ml PO 4X/DAY [facility] Last Admin: 03/03/18 09:48 Dose: 120 ml Prednisone () 40 mg PO DAILY@0800 [facility] Last Admin: 03/03/18 08:30 Dose: 40 mg Sodium Chloride () 5 - 30 ml IV UD PRN PRN Reason: SALINE FLUSH Last Admin: 03/02/18 10:03 Dose: 10 ml Zolpidem Tartrate (Ambien (Generic)) 5 mg PO QHS PRN PRN PRN Reason: SLEEP Last Admin: 03/02/18 20:56 Dose: 5 mg Medical Necessity - Tobacco Use Smoking Status: Former smoker Tobacco Use: Cigarettes Assessment/Plan All Active Problems Transaminitis (Acute) CAP (community acquired pneumonia) (Acute) COPD exacerbation (Acute) Elevated troponin (Acute) The patient is a 58 y/o M w/ PMHx: Anxiety and Depression, History of Tobacco use, Suspected Chronic COPD, BPH, Chronic Neuropathy who presents to the [facility] ED on 03/01/18 with history of ongoing dyspnea, wheezing, unable to catch his breath over the last several days, worsening. (1) Acute Hypoxic Respiratory Failure secondary to Acute on Suspected Chronic COPD exacerbation w/ ? CAP and ? Diastolic CHF Exacerbation: CXR w/ chronic changes/interstitial disease, CBC on admission w/ WBC 18 with L shift. Increased work of breathing, accessory muscle usage, conversational dyspnea present upon evaluation. Admitted to PCU, maintained on oxygen with wean as tolerated to room air, continued ATC duonebs, IV methylprednisolone w/ 03/02/18 prednisone transition, HOB, IS parameters, IV Azithromycin and Rocephin given presentation w/ per discussion with Pulmonary planned 7 day course of abx therapy, negative antigens, negative viral PCR, requested sputum cultures but unable to give sample. Cardiology consultation secondary to elevated enzymes, felt likely CHF Exacerbation, given IV lasix initially and transitioned to oral BID lasix 40 mg, asa, statin, BB continued, ECHO w/ normal LV size, mild eccentric LVH, LV systolic function normal, EF 60%, transmitral diastolic flow velocities suggestive of mild stage I diastolic dysfunction, pulmonary artery systolic pressure 38 mmHg, repeat AM CXR pending. Pulmonary consulted given despite interventions still requiring notable oxygen supplementation and VM placement w/ felt acute hypoxic respiratory failure more likely to underlying pulmonary disease severity and possible infection with presumptive COPD exacerbation with a small component of his dyspnea complaint possibly secondary to diastolic heart failure with decompensation with imaging obtained per pulmonary recommendation notable for CT of the chest was performed yesterday and discussed with patient and pulmonary medicine with notable diffuse bilateral emphysematous changes, bolus and likely end-stage fibrotic and subpleural reticular changes in addition to bilateral patchy ground-glass changes. Per pulmonary patient likely has had long-standing hypoxia and will require walking oximetry study prior to discharge to home. Given severity of interstitial fibrotic changes on the CT of the chest and diffuse bilateral emphysematous changes pulmonary ordered alpha-1 antitrypsin levels in addition to BILL, rheumatoid factor, anti-CCP antibodies, ANCA which are pending. Once clinically appropriate with plan follow-up early with very and once acute presentation resolves will need PFTs performed. (2) Elevated Cardiac Enzymes: EKG in ED w/ no acute evidence of ischemia, CXR w / chronic interstitial lung disease. Trop elevated, 0.193. Will maintain on a monitored bed, serial cardiac enzymes w/ 0.193-->0.238-->0.144. Magnesium 2.1. Continue medical management w/ addition asa, statin w/ AM FLP marked aside low HDL. Cardiology consulted. ECHO w/ normal LV size, mild eccentric LVH, LV systolic function normal, EF 60%, transmitral diastolic flow velocities suggestive of mild stage I diastolic dysfunction, pulmonary artery systolic pressure 38 mmHg. Maintained on asa, statin, BB, lasix as noted above. ASA, NG, morphine. Mag 2.1. Consider stress testing prior to discharge once pulmonary status improved; however given current status suspect will need to be arranged outpatient but will discuss with cardiology. Additionally given patient further elevated BUN and suspect possible diastolic failure is very small component for acute hypoxic respiratory failure presentation will discuss possibility of alteration to Lasix versus discontinuation. (3) Hypokalemia: Admission K+ 3.4, supplementation given, repeat level in AM. (4) Hyperglycemia: Admission glucose 253, HgBA1c obtained, 5.9%. (5) Mildly Elevated LFTs: Admission AST/ALT 49/64, Hepatitis panel unremarkable , Liver US unremarkable, 03/02/18 CMP w/ AST/ALT similar 57/83-->03/03/18 AST/ALT 95/175. (6) Anxiety and Depression: Maintain on home regimen wellbutrin, prozac. (7) ? Polysubstance Use: UDS w/ cannabis, encourage cessation. UDS also + MDMA/ meth, on wellbutrin. (8) DVT Prophylaxis: SCDs, lovenox. Code Visit Inpatient E&M: 09104 Subs Hosp L2
[2018-03-03] MEDS: Atorvastatin Calcium 80 MG Tablet PO (21:10)
[2018-03-03] MEDS: Zolpidem Tartrate 5 MG Tablet PO (21:19)
[2018-03-04] VITALS (18 sets, daily range): BP systolic 128–150; BP diastolic 87–93; PULSE 70–97; RESP 16–20; TEMP 36.3–36.8; O2SAT 70–93
[2018-03-04 06:00] LABS: Absolute Lymphocyte Count 2.74 X10^3/ul (0.83-4.51); Absolute Neutrophil Count 10.4 X10^3/uL (2.0-7.7); Basophil# 0.01 X10^3/uL; Basophil% 0.1 % (0-1); Eosinophil# 0.12 X10^3/uL; Eosinophils% 0.8 % (0-5); Hematocrit 42.7 % (40-54); Hemoglobin 14.3 g/dl (13.0-16.5); Lymphocyte # 2.74 X10^3/ul (4.0); Lymphocyte % 19.1 % (19-41); Mean Corp Hgb Conc 33.5 g/gl (32-36); Mean Corpuscular Hgb 30.2 pg (27.0-32.0); Mean Corpuscular Volume 90.1 fL (80-94); Mean Platelet Vol. 11.5 fl (6.2-12.0); Monocyte# 0.94 X10^3/uL; Monocyte% 6.6 % (0-10); Neutrophil # 10.44 X10^3/uL (2.7-7.7); Neutrophil % 72.9 % (47-70); Platelet Count 297 K/mm3 (150-450); RBC Distribution Width CV 14.4 % (11.6-14.6); RBC Distribution Width SD 46.7 fl (35.1-43.9); Red Blood Count 4.74 M/mm3 (4.6-6.2); White Blood Count 14.3 K/mm3 (4.4-11.0)
[2018-03-04] MEDS: Enoxaparin 40 MG/0.4 ML Syringe SC (06:05)
[2018-03-04 06:06] LABS: POSITIVE COUNT NO; POSITIVE DIFFERENTIAL NO; POSITIVE MORPHOLOGY NO
[2018-03-04 06:23] LABS: AST(SGOT) 42 U/L (15-37); Alanine Aminotransfer ALT/SGPT 151 U/L (16-61); Albumin, Serum 2.9 g/dL (3.2-5.0); Alkaline Phosphatase 108 U/L (45-117); Anion Gap 9 (5-15); BUN 35 mg/dL (7-18); BUN/Creat Ratio 32.1 RATIO (10-20); Bilirubin, Direct 0.13 mg/dL (0.00-0.30); Chloride 98 mmol/L (98-107); Creatinine, Serum 1.09 mg/dL (0.70-1.30); EST Glomerular Filtration Rate 74 mL/min (>60); Est Glom Filt Rate - Afr Amer 90 mL/min (>60); Estimated Creatinine Clearance 78.13 ml/min; Globulin 4.7 g/dL (2.2-4.2); Glucose 124 mg/dL (74-106); Protein, Total 7.6 g/dL (6.4-8.2); Sodium Level 137 mmol/L (136-145)
[2018-03-04] MEDS: Ipratropium/Albuterol Sulfate 3 ML AMPUL.NEB INHALATION ×4 (06:52→19:15)
--- NOTE | 2018-03-04 08:10 | PCM.PN.CARD ---
Subjectve: Patient seen and evaluated. Appears to be doing better. Objective: Vital Signs Temp Pulse Resp BP Pulse Ox 98.3 F 82 18 146/92 H 92 03/04/18 03:45 03/04/18 07:05 03/04/18 03:45 03/04/18 03:45 03/04/18 03:45 Oxygen Flow Rate (L/min) 6 Oxygen Delivery Method Nasal Cannula Weight: 186 lb 8.177 oz Body Mass Index (BMI) 26.7 Intake and Output for Last 24 Hours 03/02/18 03/03/18 03/04/18 23:59 23:59 23:59 Intake Total 1605 / 1605 1589 / 1589 360 / 360 Balance 1605 / 1605 1589 / 1589 360 / 360 General: Awake, Alert, Oriented x 3, Ill Appearing HEENT: PERRL, EOMI, Sclera Non Icteric Neck: Supple, Good ROM, No Lymph Node Enlargement Lungs: Clear to auscultation Cardiovascular: Regular Rhythm, Normal S1, Normal S2, No Murmurs, No Rubs, No Gallops Vascular: No Carotid Bruits, Normal Femoral Pulses, Normal Radial Pulses, Normal Dorsalis Pedal Pulse, Normal Posterior Tibial Pulses Abdomen: Bowel Sounds Present, Soft, Non Tender, No HSM, No Organomegaly Extremities: No Cyanosis, No Clubbing, No edema Neurological: No Focal Motor or Sensory Deficit 03/04/18 05:15: WBC 14.3 H, RBC 4.74, Hgb 14.3, Hct 42.7, MCV 90.1, MCH 30.2, MCHC 33.5, RDW 14.4, RDW Differential 46.7 H, Plt Count 297, MPV 11.5, Immature Gran % (Auto) 0.500, Neut % (Auto) 72.9 H, Lymph % (Auto) 19.1, [facility] % (Auto) 6.6, Eos % (Auto) 0.8, Baso % (Auto) 0.1, Absolute Neuts (auto) 10.4 H, Total Counted Not Reportable 03/04/18 05:15: Sodium 137, Potassium 4.0, Chloride 98, Carbon Dioxide 30.0, Anion Gap 9, BUN 35 H, Creatinine 1.09, Est GFR (MDRD) Af Amer 90, Est GFR (MDRD) Non-Af 74, BUN/Creatinine Ratio 32.1 H, Glucose 124 H, Calcium 9.0, Total Bilirubin 0.70, Direct Bilirubin 0.13 Rhythm: EKG: ECHO: Stress Test: Cardiac Cath: PCI: CT Surgery: Holter monitor: EPS: PPM: CXR: Chest CT Scan: Medical Necessity - Tobacco Use Smoking Status: Former smoker Tobacco Use: Cigarettes Assessment/Plan 1. Abnormal cardiac enzymes. He has mildly abnormal cardiac enzymes suggesting likely underlying coronary artery disease. The above is likely exacerbated by his current respiratory condition. His echocardiogram demonstrated overall preserved left ventricular systolic function. I suspect the above is likely secondary to demand ischemia. At this time I do not think that we will pursue stress testing. This can be perhaps done as an outpatient 2. Shortness of breath. The etiology of his shortness of breath is unclear to me at this particular time. His echocardiogram demonstrated overall preserved left ventricular systolic function. Pulmonary pressures were only minimally elevated. The above is likely secondary to diastolic dysfunction. He has had a course of diuretics and I do agree after discussion with the hospitalist that he is getting prerenal and we need to discontinue the above. Thank you for allowing me to participate in the care of your patient. Please don't hesitate to call if any issues arise
--- NOTE | 2018-03-04 08:38 | NURSING ---
HALF WAY THROUGH WALKING TEST HAD TO PLACE PT ON VENTI MASK D/T SATS IN THE 70'S ON 6L NC. STILL WAS ONLY SATTING 85 ON VENTI W/ AMBULATION.
--- NOTE | 2018-03-04 09:08 | PN_ITS ---
Patient Problems: Active and Suspected Problems Transaminitis (Acute) CAP (community acquired pneumonia) (Acute) COPD exacerbation (Acute) Elevated troponin (Acute) Subjective: The patient was seen and examined. He is sitting up in bed in no acute distress. Saturating 89% on 6 L of oxygen supplementation. Nursing staff reports they performed an ambulatory pulse ox this morning and patient desaturated to 70% on [address] him on a 50% Ventimask and he proved to 85%. He remains afebrile and hemodynamically stable. Denies any chest pain or palpitations. His Lasix has been discontinued. Objective: Recent lab and culture data reviewed. Liver function improved today. Influenza , blood culture, urine strep/Legionella antigens, and viral respiratory panel all negative. MRSA screening negative. No sputum culture. Alpha-1 antitrypsin is pending. Chest CT on 03/02 showing severe diffuse fibrotic COPD with honeycombing throughout both lungs especially upper lung [place]. Widespread interstitial thickening and peripheral fibrosis with patchy groundglass densities. Active infiltrate and/or pulmonary edema not excluded. There is no effusions. - Physical Exam General: Alert, Oriented x3, Cooperative, No apparent distress HEENT: Atraumatic, Normocephalic Oral: Moist Mucosa, No Gingival or Mucosal Lesions/ Ulcerations Neck: Supple, No Nodes, Trachea Midline Lungs: No rhonchi, No wheeze, No rales, Diminished Cardiovascular: Regular rate, Regular Rhythm, Normal S1, Normal S2 Abdomen: Bowel Sounds Present, Soft, Non Tender Extremities: No cyanosis, No edema, Clubbing Skin: - - No changes Musculoskeletal: No Tenderness to Palpation of Joints or Extremities Lymphatic: No Cervical, Supraclavicular, or Inguinal Adenopathy Neurological: Neuro grossly intact Psych/Mental Status: Alert and oriented to time, place, person, mood and affect Vital Signs Temp Pulse Resp BP Pulse Ox 98.3 F 82 20 H 146/92 H 80 03/04/18 03:45 03/04/18 07:05 03/04/18 08:40 03/04/18 03:45 03/04/18 08:38 Oxygen Flow Rate (L/min) [ 13 AMBULATION with Oxygen] Oxygen Flow Rate (L/min) 6 Oxygen Delivery Method Venturi Mask Weight: 186 lb 8.177 oz Body Mass Index (BMI) 26.7 Intake and Output for Last 24 Hours 03/02/18 03/03/18 03/04/18 23:59 23:59 23:59 Intake Total 1605 / 1605 1589 / 1589 360 / 360 Balance 1605 / 1605 1589 / 1589 360 / 360 Microbiology Past 72 Hours 03/01/18 06:15 Blood Culture - Preliminary Blood Culture (Wb) - Anticubital Right No growth in 48 hours. 03/01/18 11:00 Respiratory Panel (PCR) - Final Mucosa - Nasopharyngeal 03/01/18 06:38 Streptococcus pneumoniae Antigen (M - Final Urine, Clean Catch 03/01/18 06:38 Legionella Antigen - Final Urine, Clean Catch Laboratory Tests Past 24 Hrs 03/04/18 03/04/18 05:15 05:15 WBC 14.3 H RBC 4.74 Hgb 14.3 Hct 42.7 MCV 90.1 MCH 30.2 MCHC 33.5 RDW 14.4 RDW Differential 46.7 H Plt Count 297 MPV 11.5 Immature Gran % (Auto) 0.500 Neut % (Auto) 72.9 H Lymph % (Auto) 19.1 [place] % (Auto) 6.6 Eos % (Auto) 0.8 Baso % (Auto) 0.1 Absolute Neuts (auto) 10.4 H Absolute Lymphs (auto) 2.74 Total Counted Not Reportable Sodium 137 Potassium 4.0 Chloride 98 Carbon Dioxide 30.0 Anion Gap 9 BUN 35 H Creatinine 1.09 Estim Creat Clear Calc 78.13 Est GFR (MDRD) Af Amer 90 Est GFR (MDRD) Non-Af 74 BUN/Creatinine Ratio 32.1 H Glucose 124 H Calcium 9.0 Total Bilirubin 0.70 Direct Bilirubin 0.13 AST 42 H ALT 151 H Alkaline Phosphatase 108 Total Protein 7.6 Albumin 2.9 L Globulin 4.7 H Medical Necessity - Tobacco Use Smoking Status: Former smoker Tobacco Use: Cigarettes Assessment/Plan All Active Problems Transaminitis (Acute) CAP (community acquired pneumonia) (Acute) COPD exacerbation (Acute) Elevated troponin (Acute) RECOMMENDATIONS 1. Wean oxygen supplementation to keep saturations 88-92%. 2. Encourage incentive spirometer/Acapella 3. Increase activity as tolerated 4. Continue DuoNeb aerosols 5. Await immunology workup 6. Repeat ambulatory pulse ox prior to discharge. Patient must be able to maintain saturations greater than 88% on 6 L or less prior to consideration for discharge. 7. Follow-up in the pulmonary clinic in 2 weeks with [employer] at which time formal pulmonary function tests can be ordered. 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 His high oxygen requirements currently do not allow him to do light duty. This can be readdressed as outpatient. IMPRESSIONS 1. Acute hypoxic respiratory failure likely secondary to diastolic CHF Minimal improvement with diuresis. Requiring 5-6 L of oxygen supplementation and a 50% Ventimask with ambulation, still with significant desaturations. Patient encouraged to modify diet, does have a very high salt diet and liberal fluids at home. Cardiology is following. Patient diuresed with Lasix, however this is been discontinued secondary to suspected prerenal. Continue to wean oxygen to keep saturations 88-92%. Unclear if infectious process, remains on antibiotics. No fevers/chills. Leukocytosis but on steroids. An ambulatory pulse ox was performed this morning and the patient desaturated in the 70s on 6 L of oxygen supplementation. He was placed on a Ventimask and recovered to 91% at rest. Patient can follow-up in the pulmonary clinic in 2 weeks with [employer] importance of follow-up stressed to the patient. 2. Elevated cardiac enzymes Likely secondary to demand ischemia. The patient was in respiratory distress upon arrival and hypoxic. He does not have any chest pain. Cardiology following, possibly perform stress test prior to discharge versus as an outpatient his echocardiogram did show mild eccentric LVH, normal LV systolic function, estimated EF of 60%, and stage I diastolic dysfunction. RVSP was estimated at 38 mmHg. 3. Suspected COPD/questionable interstitial lung disease Possible exacerbation but may be more related to CHF or interstitial disease. Significant smoking history, recently quit in December 2017. CT showing extensive , severe fibrotic changes, possibly pulmonary edema or infiltrates. 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 Immunology workup has been ordered. No prior inhaler therapy other than as needed albuterol. Patient would benefit from formal pulmonary function tests and a pulmonary stress test as an outpatient to quantify his lung function and assess for ongoing supplemental oxygen needs, once his acute condition improves. 4. Tobacco abuse in remission/Past drug history/risky behaviors/MRSA infection 2006/elevated LFTs Complicates care, management, recovery, and prognosis. Significant smoking history, quit cold turkey December 2017. Encouraged ongoing smoking cessation. No need for nicotine replacement therapy at this time. Hepatitis panel negative. Thank you for the opportunity to participate in this patient's care, please do not hesitate contact us with any further questions or concerns. This note was generated with [employer] software. It may contain incorrect words, spelling, and punctuation that were not noted in checking the note before signing.
[2018-03-04] MEDS: Carvedilol 3.125 MG TABLET PO ×2 (10:18→22:33)
[2018-03-04] MEDS: Aspirin E.C. 81 MG Tablet PO (10:18)
[2018-03-04] MEDS: Multivitamins,Ther W-Minerals Tablet 1 TABLET PO (10:18)
[2018-03-04] MEDS: predniSONE 20 MG Tablet 40 MG PO (10:18)
[2018-03-04] MEDS: Gabapentin 300 MG Capsule PO ×2 (10:18→17:01)
[2018-03-04] MEDS: buPROPion (XL) 150 MG TABLET.XL PO (10:18)
[2018-03-04] MEDS: FLUoxetine 20 MG Capsule PO ×2 (10:18→22:33)
[2018-03-04] MEDS: 0.9% NaCl Peripheral Flush Adult/Peds IV ×2 (10:19→22:34)
[2018-03-04] MEDS: Ceftriaxone 1 GM/50 ML BAG IV (10:19)
--- NOTE | 2018-03-04 12:58 | PN_ITS ---
Patient Problems: Active and Suspected Problems Transaminitis (Acute) CAP (community acquired pneumonia) (Acute) COPD exacerbation (Acute) Elevated troponin (Acute) Subjective: Patient seen and examined. Continues to have significant dyspnea on exertion. He states he feels improved at rest. Denies fever, chills. Denies significant cough. No other current complaints. - Physical Exam General: Alert, Oriented x3, Cooperative, No apparent distress HEENT: Atraumatic, PERRLA, EOMI, Normocephalic Neck: Supple, No JVD, Negative Carotid Bruits Lungs: Clear to auscultation, Diminished Cardiovascular: Regular rate, Regular Rhythm, Normal S1, Normal S2, No murmurs Abdomen: Bowel Sounds Present, Soft, Non Tender, Non-Distended Extremities: No clubbing, No cyanosis, No edema, Capillary Refill Less than 3 Seconds Skin: No rashes, No breakdown Musculoskeletal: No Tenderness to Palpation of Joints or Extremities Neurological: Cranial nerves II-XII grossly intact, Neuro grossly intact Psych/Mental Status: Normal Affect, Appropriate Vital Signs Temp Pulse Resp BP Pulse Ox 97.6 F L 88 20 H 134/88 H 89 03/04/18 10:11 03/04/18 11:12 03/04/18 11:01 03/04/18 10:11 03/04/18 10:11 Oxygen Flow Rate (L/min) [ 13 AMBULATION with Oxygen] Oxygen Flow Rate (L/min) 6 Oxygen Delivery Method Nasal Cannula Weight: 84.6 kg Body Mass Index (BMI) 26.7 Intake and Output for Last 24 Hours 03/02/18 03/03/18 03/04/18 23:59 23:59 23:59 Intake Total 1605 / 1605 1589 / 1589 860 / 860 Balance 1605 / 1605 1589 / 1589 860 / 860 Microbiology Past 72 Hours 03/01/18 06:15 Blood Culture - Preliminary Blood Culture (Wb) - Anticubital Right No growth in 48 hours. 03/01/18 11:00 Respiratory Panel (PCR) - Final Mucosa - Nasopharyngeal 03/01/18 06:38 Streptococcus pneumoniae Antigen (M - Final Urine, Clean Catch 03/01/18 06:38 Legionella Antigen - Final Urine, Clean Catch Laboratory Tests Past 24 Hrs 03/04/18 03/04/18 05:15 05:15 WBC 14.3 H RBC 4.74 Hgb 14.3 Hct 42.7 MCV 90.1 MCH 30.2 MCHC 33.5 RDW 14.4 RDW Differential 46.7 H Plt Count 297 MPV 11.5 Immature Gran % (Auto) 0.500 Neut % (Auto) 72.9 H Lymph % (Auto) 19.1 [place] % (Auto) 6.6 Eos % (Auto) 0.8 Baso % (Auto) 0.1 Absolute Neuts (auto) 10.4 H Absolute Lymphs (auto) 2.74 Total Counted Not Reportable Sodium 137 Potassium 4.0 Chloride 98 Carbon Dioxide 30.0 Anion Gap 9 BUN 35 H Creatinine 1.09 Estim Creat Clear Calc 78.13 Est GFR (MDRD) Af Amer 90 Est GFR (MDRD) Non-Af 74 BUN/Creatinine Ratio 32.1 H Glucose 124 H Calcium 9.0 Total Bilirubin 0.70 Direct Bilirubin 0.13 AST 42 H ALT 151 H Alkaline Phosphatase 108 Total Protein 7.6 Albumin 2.9 L Globulin 4.7 H Medical Necessity - Tobacco Use Smoking Status: Former smoker Tobacco Use: Cigarettes Assessment/Plan All Active Problems Transaminitis (Acute) CAP (community acquired pneumonia) (Acute) COPD exacerbation (Acute) Elevated troponin (Acute) Patient is a 58-year-old male admitted 03/01/2018 due to worsening shortness of breath. He has a past medical history of anxiety, depression, polysubstance abuse and history of tobacco dependence with and December 2017. 1. Acute hypoxic respiratory failure secondary to acute on suspected chronic COPD exacerbation-pulmonary following. Continue IV Solu-Medrol. Transition IV Rocephin to oral Levaquin for 4 more days. Patient's breathing improved at rest. He was tested for home oxygen and oxygen saturation dropped into the 70s on 6 L. Will reassess tomorrow. Patient will need further follow-up with pulmonary medicine at discharge. CT shows extensive severe fibrotic changes. 2. Acute diastolic CHF-echocardiogram shows an EF of 60%, stage I diastolic dysfunction, pulmonary artery systolic pressure 38 mmHg. Patient received IV Lasix which has since been discontinued. F/u with cardiology as outpatient. 3. Elevated troponin-suspected secondary to demand ischemia secondary to #1. Patient will follow up with cardiology as outpatient with possible stress test in the future. 4. Hypokalemia-resolved. 5. Mildly elevated LFTs-liver ultrasound unremarkable. Hepatitis panel unremarkable. Continue outpatient follow-up. 6. Anxiety, depression-continue home Wellbutrin, Prozac regimen. 7. History of polysubstance abuse and tobacco dependence-tobacco cessation December 2017. Encouraged continued cessation. Urine drug screen positive for cannabis. Encourage cessation of cannabis as well. DVT prophylaxis-Lovenox SC This patient was seen by FRANCISCO JAVIER Mayberry under the supervision of Dr. Erazo.
[2018-03-04] MEDS: Acetaminophen 500 MG Tablet 1000 MG PO (13:19)
[2018-03-04 16:10] LABS: ANTINUCLEAR ANTIBODIES DIRECT Negative (Negative); Cytoplasmic Ab (C-ANCA) <1:20 titer (Neg:<1:20)
[2018-03-04] MEDS: Atorvastatin Calcium 80 MG Tablet PO (22:33)
[2018-03-04] MEDS: Zolpidem Tartrate 5 MG Tablet PO (22:39)
[2018-03-05] VITALS (18 sets, daily range): BP systolic 125–152; BP diastolic 82–101; PULSE 73–105; RESP 16–22; TEMP 36.6–36.8; O2SAT 71–96
[2018-03-05] MEDS: Enoxaparin 40 MG/0.4 ML Syringe SC (05:14)
[2018-03-05] MEDS: levoFLOXacin 750 MG Tablet PO (05:14)
[2018-03-05] MEDS: 0.9% NaCl Peripheral Flush Adult/Peds IV ×4 (05:14→23:44)
[2018-03-05 05:48] LABS: Absolute Lymphocyte Count 1.39 X10^3/ul (0.83-4.51); Absolute Neutrophil Count 13.3 X10^3/uL (2.0-7.7); Basophil# 0.01 X10^3/uL; Basophil% 0.1 % (0-1); Hemoglobin 14.5 g/dl (13.0-16.5); Lymphocyte # 1.39 X10^3/ul (4.0); Mean Corp Hgb Conc 34.5 g/gl (32-36); Mean Corpuscular Hgb 30.9 pg (27.0-32.0); Mean Corpuscular Volume 89.6 fL (80-94); Mean Platelet Vol. 11.6 fl (6.2-12.0); Monocyte# 0.64 X10^3/uL; Monocyte% 4.1 % (0-10); Neutrophil # 13.34 X10^3/uL (2.7-7.7); Neutrophil % 86.1 % (47-70); Platelet Count 320 K/mm3 (150-450); RBC Distribution Width CV 13.9 % (11.6-14.6); Red Blood Count 4.69 M/mm3 (4.6-6.2); White Blood Count 15.5 K/mm3 (4.4-11.0)
[2018-03-05 06:04] LABS: AST(SGOT) 33 U/L (15-37); Alanine Aminotransfer ALT/SGPT 129 U/L (16-61); Albumin, Serum 2.9 g/dL (3.2-5.0); Alkaline Phosphatase 109 U/L (45-117); Anion Gap 8 (5-15); BUN 32 mg/dL (7-18); BUN/Creat Ratio 31.7 RATIO (10-20); Calcium,Total 8.7 mg/dL (8.5-10.1); Chloride 102 mmol/L (98-107); Creatinine, Serum 1.01 mg/dL (0.70-1.30); EST Glomerular Filtration Rate 81 mL/min (>60); Est Glom Filt Rate - Afr Amer 98 mL/min (>60); Estimated Creatinine Clearance 84.32 ml/min; Globulin 4.4 g/dL (2.2-4.2); Glucose 180 mg/dL (74-106); Potassium 4.8 mmol/L (3.5-5.1); Protein, Total 7.3 g/dL (6.4-8.2); Sodium Level 136 mmol/L (136-145)
[2018-03-05 06:09] LABS: POSITIVE COUNT NO; POSITIVE DIFFERENTIAL NO; POSITIVE MORPHOLOGY NO
[2018-03-05] MEDS: Ipratropium/Albuterol Sulfate 3 ML AMPUL.NEB INHALATION ×4 (07:15→19:10)
--- NOTE | 2018-03-05 07:38 | PCM.PN.CARD ---
Subjectve: Patient seen and evaluated. Appears to be breathing much better today after breathing treatments. Objective: Vital Signs Temp Pulse Resp BP Pulse Ox 97.8 F 88 22 H 125/82 H 92 03/05/18 04:28 03/05/18 07:15 03/05/18 07:15 03/05/18 04:28 03/05/18 07:15 Oxygen Flow Rate (L/min) [ 13 AMBULATION with Oxygen] Oxygen Flow Rate (L/min) 4 Oxygen Delivery Method Nasal Cannula Weight: 186 lb 8.177 oz Body Mass Index (BMI) 26.7 Intake and Output for Last 24 Hours 03/03/18 03/04/18 03/05/18 23:59 23:59 23:59 Intake Total 1589 / 1589 1260 / 1260 560 / 560 Balance 1589 / 1589 1260 / 1260 560 / 560 General: Awake, Alert, Oriented x 3 HEENT: PERRL, EOMI, Sclera Non Icteric Neck: Supple, Good ROM, No Lymph Node Enlargement Lungs: Clear to auscultation Cardiovascular: Regular Rhythm, Normal S1, Normal S2, No Murmurs, No Rubs, No Gallops Vascular: No Carotid Bruits, Normal Femoral Pulses, Normal Radial Pulses, Normal Dorsalis Pedal Pulse, Normal Posterior Tibial Pulses Abdomen: Bowel Sounds Present, Soft, Non Tender, No HSM, No Organomegaly Extremities: No Cyanosis, No Clubbing, No edema Neurological: No Focal Motor or Sensory Deficit 03/05/18 04:40: WBC 15.5 H, RBC 4.69, Hgb 14.5, Hct 42.0, MCV 89.6, MCH 30.9, MCHC 34.5, RDW 13.9, RDW Differential 45.0 H, Plt Count 320, MPV 11.6, Immature Gran % (Auto) 0.700, Neut % (Auto) 86.1 H, Lymph % (Auto) 9.0 L, [place] % (Auto) 4.1, Eos % (Auto) 0.0, Baso % (Auto) 0.1, Absolute Neuts (auto) 13.3 H, Total Counted Not Reportable 03/05/18 04:40: Sodium 136, Potassium 4.8, Chloride 102, Carbon Dioxide 26.0, Anion Gap 8, BUN 32 H, Creatinine 1.01, Est GFR (MDRD) Af Amer 98, Est GFR (MDRD) Non-Af 81, BUN/Creatinine Ratio 31.7 H, Glucose 180 H, Calcium 8.7, Total Bilirubin 0.40, Direct Bilirubin 0.10 Rhythm: EKG: ECHO: Stress Test: Cardiac Cath: PCI: CT Surgery: Holter monitor: EPS: PPM: CXR: Chest CT Scan: Medical Necessity - Tobacco Use Smoking Status: Former smoker Tobacco Use: Cigarettes Assessment/Plan 1. Abnormal cardiac enzymes. He has mildly abnormal cardiac enzymes suggesting likely underlying coronary artery disease. The above is likely exacerbated by his current respiratory condition. His echocardiogram demonstrated overall preserved left ventricular systolic function. I suspect the above is likely secondary to demand ischemia. At this time I do not think that we will pursue stress testing. This can be perhaps done as an outpatient. No changes in therapy at this particular time. 2. Shortness of breath. The etiology of his shortness of breath is unclear to me at this particular time. His echocardiogram demonstrated overall preserved left ventricular systolic function. Pulmonary pressures were only minimally elevated. The above is likely secondary to diastolic dysfunction. He has had a course of diuretics and I do agree after discussion with the hospitalist that he is getting prerenal and we need to discontinue the above. Thank you for allowing me to participate in the care of your patient. Please don't hesitate to call if any issues arise. We will follow patient as an outpatient.
[2018-03-05] MEDS: Multivitamins,Ther W-Minerals Tablet 1 TABLET PO (07:56)
[2018-03-05] MEDS: Aspirin E.C. 81 MG Tablet PO (07:56)
[2018-03-05] MEDS: Acetaminophen 500 MG Tablet 1000 MG PO ×2 (07:56→20:00)
[2018-03-05] MEDS: Gabapentin 300 MG Capsule PO ×2 (07:56→16:42)
--- NOTE | 2018-03-05 08:59 | PN_ITS ---
Patient Problems: Active and Suspected Problems Transaminitis (Acute) CAP (community acquired pneumonia) (Acute) COPD exacerbation (Acute) Elevated troponin (Acute) Subjective: Patient was seen and examined. Reports subjective improvement in overall breathing, he has been weaned to 4 L of oxygen supplementation. Denies any chest pain, shortness of breath at rest. He does still get dyspneic on exertion. Objective: Recent lab and culture data reviewed. Liver function improved today. Influenza , blood culture, urine strep/Legionella antigens, and viral respiratory panel all negative. MRSA screening negative. No sputum culture. Alpha-1 antitrypsin is pending. Chest CT on 03/02 showing severe diffuse fibrotic COPD with honeycombing throughout both lungs especially upper lung [place]. Widespread interstitial thickening and peripheral fibrosis with patchy groundglass densities. Active infiltrate and/or pulmonary edema not excluded. There is no effusions. - Physical Exam General: Alert, Oriented x3, Cooperative, No apparent distress, - - No conversational dyspnea HEENT: Atraumatic, Normocephalic Oral: Moist Mucosa, No Gingival or Mucosal Lesions/ Ulcerations Neck: Supple, No Nodes, Trachea Midline Lungs: No rhonchi, No wheeze, No rales, Diminished Cardiovascular: Regular rate, Regular Rhythm, Normal S1, Normal S2 Abdomen: Bowel Sounds Present, Soft, Non Tender Extremities: No cyanosis, No edema, Clubbing Skin: - - No changes from previous Musculoskeletal: No Tenderness to Palpation of Joints or Extremities Lymphatic: No Cervical, Supraclavicular, or Inguinal Adenopathy Neurological: Neuro grossly intact Psych/Mental Status: Alert and oriented to time, place, person, mood and affect Vital Signs Temp Pulse Resp BP Pulse Ox 97.8 F 88 18 125/82 H 92 03/05/18 04:28 03/05/18 07:15 03/05/18 07:50 03/05/18 04:28 03/05/18 07:15 Oxygen Flow Rate (L/min) [ 13 AMBULATION with Oxygen] Oxygen Flow Rate (L/min) 4 Oxygen Delivery Method Nasal Cannula Weight: 186 lb 8.177 oz Body Mass Index (BMI) 26.7 Intake and Output for Last 24 Hours 03/03/18 03/04/18 03/05/18 23:59 23:59 23:59 Intake Total 1589 / 1589 1260 / 1260 560 / 560 Balance 1589 / 1589 1260 / 1260 560 / 560 Microbiology Past 72 Hours 03/01/18 06:15 Blood Culture - Preliminary Blood Culture (Wb) - Anticubital Right No growth in 48 hours. Laboratory Tests Past 24 Hrs 03/05/18 03/05/18 04:40 04:40 WBC 15.5 H RBC 4.69 Hgb 14.5 Hct 42.0 MCV 89.6 MCH 30.9 MCHC 34.5 RDW 13.9 RDW Differential 45.0 H Plt Count 320 MPV 11.6 Immature Gran % (Auto) 0.700 Neut % (Auto) 86.1 H Lymph % (Auto) 9.0 L [place] % (Auto) 4.1 Eos % (Auto) 0.0 Baso % (Auto) 0.1 Absolute Neuts (auto) 13.3 H Absolute Lymphs (auto) 1.39 Total Counted Not Reportable Sodium 136 Potassium 4.8 Chloride 102 Carbon Dioxide 26.0 Anion Gap 8 BUN 32 H Creatinine 1.01 Estim Creat Clear Calc 84.32 Est GFR (MDRD) Af Amer 98 Est GFR (MDRD) Non-Af 81 BUN/Creatinine Ratio 31.7 H Glucose 180 H Calcium 8.7 Total Bilirubin 0.40 Direct Bilirubin 0.10 AST 33 ALT 129 H Alkaline Phosphatase 109 Total Protein 7.3 Albumin 2.9 L Globulin 4.4 H Medical Necessity - Tobacco Use Smoking Status: Former smoker Tobacco Use: Cigarettes Assessment/Plan All Active Problems Transaminitis (Acute) CAP (community acquired pneumonia) (Acute) COPD exacerbation (Acute) Elevated troponin (Acute) RECOMMENDATIONS 1. Wean oxygen supplementation to keep saturations 88-92%. 2. Encourage incentive spirometer/Acapella 3. Increase activity as tolerated 4. Continue DuoNeb aerosols, antibiotics, steroids with 12 day taper at d/c 5. Await immunology workup 6. Repeat ambulatory pulse ox prior to discharge. Patient must be able to maintain saturations at or greater than 88% on 6 L or less prior to consideration for discharge. 7. Follow-up in the pulmonary clinic in 2 weeks with [facility] at which time formal pulmonary function tests can be ordered. 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 His high oxygen requirements currently do not allow him to do light duty. This can be readdressed as outpatient. 8. Okay to d/c from pulmonary standpoint if oxygenation as above IMPRESSIONS 1. Acute hypoxic respiratory failure likely secondary to diastolic CHF Minimal improvement with diuresis. Requiring 5-6 L of oxygen supplementation and a 50% Ventimask with ambulation, still with significant desaturations. Cardiology following. Lasix dc'd. Continue to wean oxygen to keep saturations 88-92%. No fevers/chills. Leukocytosis but on steroids. On Levaquin. An ambulatory pulse ox was performed 03/04 w/ desaturations in the 70s on 6 L of oxygen supplementation. He was placed on a Ventimask and recovered to 91% at rest. Patient can follow-up in the pulmonary clinic in 2 weeks with [facility] importance of follow-up stressed to the patient. He can be discharged today if can maintain appropriate saturations on 6 L or less, even on ambulation. 2. Elevated cardiac enzymes Likely secondary to demand ischemia. He does not have any chest pain. Cardiology following, plans for outpatient stress test. His echocardiogram did show mild eccentric LVH, normal LV systolic function, estimated EF of 60%, and stage I diastolic dysfunction. RVSP was estimated at 38 mmHg. 3. Suspected COPD/questionable interstitial lung disease Possible exacerbation but may be more related to CHF or interstitial disease. Significant smoking history, recently quit in December 2017. CT showing extensive , severe fibrotic changes, possibly pulmonary edema or infiltrates. 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 Immunology workup has been ordered. No prior inhaler therapy other than as needed albuterol. Concern for IPF. Patient would benefit from formal pulmonary function tests and a pulmonary stress test as an outpatient to quantify his lung function and assess for ongoing supplemental oxygen needs, once his acute condition improves. 4. Tobacco abuse in remission/Past drug history/risky behaviors/MRSA infection 2006/elevated LFTs Complicates care, management, recovery, and prognosis. Significant smoking history, quit cold turkey December 2017. Encouraged ongoing smoking cessation. No need for nicotine replacement therapy at this time. Hepatitis panel negative. Thank you for the opportunity to participate in this patient's care, please do not hesitate contact us with any further questions or concerns. This note was generated with [employer] software. It may contain incorrect words, spelling, and punctuation that were not noted in checking the note before signing.
[2018-03-05 11:10] LABS: Alpha Antitrypsin Serum 270 mg/dL (90-200)
[2018-03-05 11:11] LABS: Perinuclear Ab (P-ANCA) <1:20 titer (Neg:<1:20)
[2018-03-05 11:19] LABS: CCP IgG Antibodies 6 units (0-19)
[2018-03-05] MEDS: Carvedilol 3.125 MG TABLET PO ×2 (11:19→21:51)
[2018-03-05] MEDS: FLUoxetine 20 MG Capsule PO ×2 (11:19→21:51)
[2018-03-05] MEDS: buPROPion (XL) 150 MG TABLET.XL PO (11:19)
--- NOTE | 2018-03-05 11:35 | CT_ITS ---
STUDY: CTA CHEST REASON FOR EXAM: Male, 58 years old. Hypoxia and shortness of breath. History of pneumonia. 3 month history of productive cough. RADIATION DOSAGE (If Supplied By Facility): CTDIvol = ( 11.19 ) mGy, DLP = ( 433.45 ) mGycm TECHNIQUE: The examination was performed with the intravenous administration of 75 ml of Isovue 370 contrast material. Post-processing of the angiographic images was performed, with multiplanar reformation and 3D reconstruction. Individualized dose optimization techniques were used for this CT. COMPARISON: Comparison is made with prior examination dated March 02, 2018. FINDINGS: Normal enhancement of the main pulmonary artery and right and left pulmonary arteries. Normal enhancement of the bilateral peripheral pulmonary arteries. There is no demonstrated pulmonary embolism. Normal thoracic aorta and visualized great vessels. There is no demonstrated aortic dissection. Normal heart and pericardium. There are visualized mediastinal lymph nodes, which are within normal size limits, and with normal morphology. Normal hilar regions. Normal visualized trachea and bronchi. The lungs are well expanded. Once again, there is evidence of diffuse emphysematous changes with increased interstitial markings with areas confluence and honeycombing in keeping with a chronic interstitial fibrosis. The previously seen patchy areas of groundglass appearance throughout the lungs have improved. Residual changes persist. Normal pleura. Normal chest wall structures. Normal osseous structures. Normal visualized upper abdomen. CT/CTA Chest W/WO Contrast IMPRESSION: There is no evidence of pulmonary embolism. Once again, degenerative diffuse increased interstitial markings in both lungs with areas of confluence in keeping with chronic interstitial fibrosis. The previously seen multifocal areas of groundglass appearance improved. Residual changes persist. Electronically Signed: Efrain Urbano MD at 13:41 EDT Tel [phone], Service support ,
--- NOTE | 2018-03-05 12:09 | PCM.PROGNOTE ---
Patient Problems: Active and Suspected Problems Transaminitis (Acute) CAP (community acquired pneumonia) (Acute) COPD exacerbation (Acute) Elevated troponin (Acute) Subjective: Patient seen and examined. States he feels improved. Continues to have significant dyspnea with minimal exertion. Denies fever, chills. Denies other current complaints. - Physical Exam General: Alert, Oriented x3, Cooperative, No apparent distress HEENT: Atraumatic, PERRLA, EOMI, Normocephalic Oral: Moist Mucosa Neck: Supple, No JVD, Negative Carotid Bruits Lungs: Clear to auscultation, Diminished Cardiovascular: Regular rate, Regular Rhythm, Normal S1, Normal S2, No murmurs Abdomen: Bowel Sounds Present, Soft, Non Tender, Non-Distended Extremities: No clubbing, No cyanosis, No edema, Capillary Refill Less than 3 Seconds Skin: No rashes, No breakdown Musculoskeletal: No Tenderness to Palpation of Joints or Extremities Neurological: Cranial nerves II-XII grossly intact, Neuro grossly intact Psych/Mental Status: Normal Affect, Appropriate Vital Signs Temp Pulse Resp BP Pulse Ox 98.1 F 83 18 137/88 H 82 03/05/18 11:16 03/05/18 11:16 03/05/18 11:16 03/05/18 11:16 03/05/18 11:33 Oxygen Flow Rate (L/min) [ 6 AMBULATION with Oxygen] Oxygen Flow Rate (L/min) 4 Oxygen Delivery Method Nasal Cannula Weight: 84.6 kg Body Mass Index (BMI) 26.7 Intake and Output for Last 24 Hours 03/03/18 03/04/18 03/05/18 23:59 23:59 23:59 Intake Total 1589 / 1589 1260 / 1260 560 / 560 Balance 1589 / 1589 1260 / 1260 560 / 560 Microbiology Past 72 Hours 03/01/18 06:15 Blood Culture - Preliminary Blood Culture (Wb) - Anticubital Right No growth in 48 hours. Laboratory Tests Past 24 Hrs 03/03/18 03/03/18 03/03/18 08:30 08:30 08:30 WBC RBC Hgb Hct MCV MCH MCHC RDW RDW Differential Plt Count MPV Immature Gran % (Auto) Neut % (Auto) Lymph % (Auto) [place] % (Auto) Eos % (Auto) Baso % (Auto) Absolute Neuts (auto) Absolute Lymphs (auto) Total Counted Sodium Potassium Chloride Carbon Dioxide Anion Gap BUN Creatinine Estim Creat Clear Calc Est GFR (MDRD) Af Amer Est GFR (MDRD) Non-Af BUN/Creatinine Ratio Glucose Calcium Total Bilirubin Direct Bilirubin AST ALT Alkaline Phosphatase Total Protein Albumin Globulin Dslos-2-Cbjfechdbpd 270 H Cycl Citrul Peptide IgG 6 BILL Screen Negative c-ANCA Antibody <1:20 Atypical p-ANCA <1:20 p-ANCA Antibody <1:20 03/05/18 03/05/18 04:40 04:40 WBC 15.5 H RBC 4.69 Hgb 14.5 Hct 42.0 MCV 89.6 MCH 30.9 MCHC 34.5 RDW 13.9 RDW Differential 45.0 H Plt Count 320 MPV 11.6 Immature Gran % (Auto) 0.700 Neut % (Auto) 86.1 H Lymph % (Auto) 9.0 L [place] % (Auto) 4.1 Eos % (Auto) 0.0 Baso % (Auto) 0.1 Absolute Neuts (auto) 13.3 H Absolute Lymphs (auto) 1.39 Total Counted Not Reportable Sodium 136 Potassium 4.8 Chloride 102 Carbon Dioxide 26.0 Anion Gap 8 BUN 32 H Creatinine 1.01 Estim Creat Clear Calc 84.32 Est GFR (MDRD) Af Amer 98 Est GFR (MDRD) Non-Af 81 BUN/Creatinine Ratio 31.7 H Glucose 180 H Calcium 8.7 Total Bilirubin 0.40 Direct Bilirubin 0.10 AST 33 ALT 129 H Alkaline Phosphatase 109 Total Protein 7.3 Albumin 2.9 L Globulin 4.4 H Iuqfb-5-Scpggcsuhnm Cycl Citrul Peptide IgG BILL Screen c-ANCA Antibody Atypical p-ANCA p-ANCA Antibody Medical Necessity - Tobacco Use Smoking Status: Former smoker Tobacco Use: Cigarettes Assessment/Plan All Active Problems Transaminitis (Acute) CAP (community acquired pneumonia) (Acute) COPD exacerbation (Acute) Elevated troponin (Acute) Patient is a 58-year-old male admitted 03/01/2018 due to worsening shortness of breath. He has a past medical history of anxiety, depression, polysubstance abuse and history of tobacco dependence with and December 2017. 1. Acute hypoxic respiratory failure secondary to acute on suspected chronic COPD exacerbation-pulmonary following. Continue IV Solu-Medrol. Transition IV Rocephin to oral Levaquin for 3 more days, stop date 03/09/2018. Patient's breathing improved at rest. CT shows extensive severe fibrotic changes. Patient was again tested for home oxygen and dropped into the low 70s with minimal ambulation on 6 L nasal cannula. Discussed with pulmonary medicine. Will obtain CTA of chest to rule out PE. If patient is not improve over the weekend, will need transfer to tertiary care center for possible lung biopsy with [facility]ATS. 2. Acute diastolic CHF-echocardiogram shows an EF of 60%, stage I diastolic dysfunction, pulmonary artery systolic pressure 38 mmHg. Patient received IV Lasix which has since been discontinued. F/u with cardiology as outpatient. 3. Elevated troponin-suspected secondary to demand ischemia secondary to #1. Patient will follow up with cardiology as outpatient with possible stress test in the future. 4. Hypokalemia-resolved. 5. Mildly elevated LFTs-liver ultrasound unremarkable. Hepatitis panel unremarkable. Continue outpatient follow-up. 6. Anxiety, depression-continue home Wellbutrin, Prozac regimen. 7. History of polysubstance abuse and tobacco dependence-tobacco cessation December 2017. Encouraged continued cessation. Urine drug screen positive for cannabis. Encourage cessation of cannabis as well. DVT prophylaxis-Lovenox SC This patient was seen by FRANCISCO JAVIER Mayberry under the supervision of Dr. Erazo.
--- NOTE | 2018-03-05 14:26 | CASEMGMT ---
According to [facility] website, the following are in-network tertiary facilities: [facility], [place], [facility], [facility], [facility], [facility], [place], [facility], and . Emil PÉREZ CM
[2018-03-05] MEDS: Atorvastatin Calcium 80 MG Tablet PO (21:51)
[2018-03-05] MEDS: Zolpidem Tartrate 5 MG Tablet PO (21:51)
[2018-03-06] VITALS (16 sets, daily range): BP systolic 126–146; BP diastolic 81–93; PULSE 67–93; RESP 16–18; TEMP 36.6–36.9; O2SAT 75–98
[2018-03-06] MEDS: Calcium Carbonate 500 MG Tablet PO (05:46)
[2018-03-06] MEDS: 0.9% NaCl Peripheral Flush Adult/Peds IV ×4 (05:47→22:50)
[2018-03-06] MEDS: levoFLOXacin 750 MG Tablet PO (05:47)
[2018-03-06] MEDS: Enoxaparin 40 MG/0.4 ML Syringe SC (05:47)
[2018-03-06 05:56] LABS: Absolute Lymphocyte Count 1.61 X10^3/ul (0.83-4.51); Absolute Neutrophil Count 17.2 X10^3/uL (2.0-7.7); Basophil# 0.01 X10^3/uL; Basophil% 0.1 % (0-1); Hematocrit 44.3 % (40-54); Hemoglobin 15.3 g/dl (13.0-16.5); Lymphocyte # 1.61 X10^3/ul (4.0); Lymphocyte % 8.1 % (19-41); Mean Corp Hgb Conc 34.5 g/gl (32-36); Mean Corpuscular Volume 89.9 fL (80-94); Mean Platelet Vol. 11.4 fl (6.2-12.0); Monocyte# 0.91 X10^3/uL; Monocyte% 4.6 % (0-10); Neutrophil # 17.15 X10^3/uL (2.7-7.7); Neutrophil % 86.4 % (47-70); Platelet Count 382 K/mm3 (150-450); RBC Distribution Width CV 14.2 % (11.6-14.6); RBC Distribution Width SD 45.3 fl (35.1-43.9); Red Blood Count 4.93 M/mm3 (4.6-6.2); White Blood Count 19.8 K/mm3 (4.4-11.0)
[2018-03-06 05:58] LABS: POSITIVE COUNT NO; POSITIVE DIFFERENTIAL NO; POSITIVE MORPHOLOGY NO
[2018-03-06 06:17] LABS: AST(SGOT) 38 U/L (15-37); Alanine Aminotransfer ALT/SGPT 144 U/L (16-61); Alkaline Phosphatase 98 U/L (45-117); Anion Gap 7 (5-15); BUN 31 mg/dL (7-18); BUN/Creat Ratio 30.4 RATIO (10-20); Bilirubin, Direct 0.09 mg/dL (0.00-0.30); Calcium,Total 8.6 mg/dL (8.5-10.1); Chloride 100 mmol/L (98-107); Creatinine, Serum 1.02 mg/dL (0.70-1.30); EST Glomerular Filtration Rate 80 mL/min (>60); Est Glom Filt Rate - Afr Amer 97 mL/min (>60); Globulin 4.6 g/dL (2.2-4.2); Glucose 165 mg/dL (74-106); Protein, Total 7.6 g/dL (6.4-8.2); Sodium Level 136 mmol/L (136-145)
[2018-03-06] MEDS: Ipratropium/Albuterol Sulfate 3 ML AMPUL.NEB INHALATION ×4 (07:04→19:10)
--- NOTE | 2018-03-06 08:05 | PCM.PROGNOTE ---
Patient Problems: Active and Suspected Problems Transaminitis (Acute) CAP (community acquired pneumonia) (Acute) COPD exacerbation (Acute) Elevated troponin (Acute) Subjective: The patient was seen and examined at the bedside this morning. Events from the last 24 hours have been reviewed. The patient is currently afebrile, hemodynamically stable and maintaining appropriate oxygen saturations on 4 L/min via nasal cannula. No significant complaints this morning. The patient denies cough. Rested well overnight. Objective: The patient's most recent lab work, culture data and imaging studies have all been personally reviewed. Infectious workup has been unrevealing to date. The patient's high resolution chest CT was personally reviewed and revealed diffuse bilateral bullous emphysematous changes along with what appeared to be end-stage fibrotic and subpleural reticular changes with evidence of honeycombing. There was also evidence of bilateral patchy groundglass changes. CTA chest dated March 05 revealed no evidence for PE with some improvement in the aforementioned groundglass opacities, superimposed on chronic fibrotic lung disease. - Physical Exam General: Alert, Oriented x3, Cooperative, No apparent distress HEENT: Atraumatic, PERRLA, Normocephalic Oral: No Gingival or Mucosal Lesions/ Ulcerations Neck: Supple, No Nodes, Trachea Midline Lungs: No rhonchi, No wheeze, No rales, Diminished Cardiovascular: Regular rate, Regular Rhythm, Normal S1, Normal S2, No murmurs Abdomen: Bowel Sounds Present, Soft, Non Tender, Non-Distended Extremities: No cyanosis, No edema, Clubbing Skin: No breakdown Musculoskeletal: No Tenderness to Palpation of Joints or Extremities Lymphatic: No Cervical, Supraclavicular, or Inguinal Adenopathy Neurological: Neuro grossly intact Psych/Mental Status: Alert and oriented to time, place, person, mood and affect Vital Signs Temp Pulse Resp BP Pulse Ox 97.9 F 78 18 146/92 H 92 03/06/18 03:47 03/06/18 07:05 03/06/18 07:05 03/06/18 03:47 03/06/18 07:05 Oxygen Flow Rate (L/min) [ 6 AMBULATION with Oxygen] Oxygen Flow Rate (L/min) 4 Oxygen Delivery Method Nasal Cannula Weight: 186 lb 8.177 oz Body Mass Index (BMI) 26.7 Intake and Output for Last 24 Hours 0603/05/18 03/06/18 23:59 23:59 23:59 Intake Total 1260 / 1260 2059 300 / 300 Balance 1260 / 1260 2059 300 / 300 Microbiology Past 72 Hours 03/01/18 06:15 Blood Culture - Preliminary Blood Culture (Wb) - Anticubital Right No growth in 48 hours. Laboratory Tests Past 24 Hrs 03/03/18 03/03/18 03/03/18 08:30 08:30 08:30 WBC RBC Hgb Hct MCV MCH MCHC RDW RDW Differential Plt Count MPV Immature Gran % (Auto) Neut % (Auto) Lymph % (Auto) [place] % (Auto) Eos % (Auto) Baso % (Auto) Absolute Neuts (auto) Absolute Lymphs (auto) Total Counted Sodium Potassium Chloride Carbon Dioxide Anion Gap BUN Creatinine Estim Creat Clear Calc Est GFR (MDRD) Af Amer Est GFR (MDRD) Non-Af BUN/Creatinine Ratio Glucose Calcium Total Bilirubin Direct Bilirubin AST ALT Alkaline Phosphatase Total Protein Albumin Globulin Pgxoh-9-Xfcywtjexdg 270 H Cycl Citrul Peptide IgG 6 BILL Screen Negative c-ANCA Antibody <1:20 Atypical p-ANCA <1:20 p-ANCA Antibody <1:20 03/06/18 03/06/18 05:20 05:20 WBC 19.8 H RBC 4.93 Hgb 15.3 Hct 44.3 MCV 89.9 MCH 31.0 MCHC 34.5 RDW 14.2 RDW Differential 45.3 H Plt Count 382 MPV 11.4 Immature Gran % (Auto) 0.800 Neut % (Auto) 86.4 H Lymph % (Auto) 8.1 L [place] % (Auto) 4.6 Eos % (Auto) 0.0 Baso % (Auto) 0.1 Absolute Neuts (auto) 17.2 H Absolute Lymphs (auto) 1.61 Total Counted Not Reportable Sodium 136 Potassium 5.0 Chloride 100 Carbon Dioxide 29.0 Anion Gap 7 BUN 31 H Creatinine 1.02 Estim Creat Clear Calc 83.50 Est GFR (MDRD) Af Amer 97 Est GFR (MDRD) Non-Af 80 BUN/Creatinine Ratio 30.4 H Glucose 165 H Calcium 8.6 Total Bilirubin 0.50 Direct Bilirubin 0.09 AST 38 H ALT 144 H Alkaline Phosphatase 98 Total Protein 7.6 Albumin 3.0 L Globulin 4.6 H Aciwc-9-Brusrqthmoq Cycl Citrul Peptide IgG BILL Screen c-ANCA Antibody Atypical p-ANCA p-ANCA Antibody Clinical Impression(s) from Imaging Studies Chest X-Ray 03/01/18 00:21 IMPRESSION: Chronic interstitial lung disease. Electronically Signed: Brielle Hutchinson MD at 1:51 EDT Tel , Service support , Liver Ultrasound 03/01/18 12:57 IMPRESSION: Normal right upper quadrant ultrasound examination. Electronically Signed: Kwasi Corey MD at 20:28 EDT , Service support , Chest X-Ray 03/02/18 05:59 IMPRESSION: Stable examination. Electronically Signed: Efrain Urbano MD at 11:11 EDT Tel [phone], Service support , Chest CT 03/02/18 11:46 IMPRESSION: Severe end-stage fibrotic COPD. Additionally cannot exclude patchy areas of pulmonary edema or even active infiltrates especially in the lower lobes. Electronically Signed: Kwasi Corey MD at 16:49 EDT , Service support , Chest CTA 03/05/18 11:35 IMPRESSION: There is no evidence of pulmonary embolism. Once again, degenerative diffuse increased interstitial markings in both lungs with areas of confluence in keeping with chronic interstitial fibrosis. The previously seen multifocal areas of groundglass appearance improved. Residual changes persist. Electronically Signed: Efrain Urbano MD at 13:41 EDT Tel [phone], Service support , Medical Necessity - Tobacco Use Smoking Status: Former smoker Tobacco Use: Cigarettes Assessment/Plan All Active Problems Transaminitis (Acute) CAP (community acquired pneumonia) (Acute) COPD exacerbation (Acute) Elevated troponin (Acute) RECOMMENDATIONS: 1. Continue high-dose IV steroids over the weekend with plans to repeat walking oximetry study on Thursday. 2. Continue scheduled bronchodilators 3. Continue Levaquin to complete a 7 day treatment course IMPRESSIONS: 1. 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 While a small component of his dyspnea complaints may have been secondary to diastolic heart failure with decompensation, his CT scan clearly demonstrates end-stage fibrotic lung disease. While he may also be experiencing a presumptive COPD exacerbation, his infectious workup has remained negative to date. Despite this, I would be inclined to treat the patient with antibiotics to complete a 7 day course. The patient has failed his walking oximetry studies on several occasions with significant oxygen desaturations, despite being on 6 L/min. Therefore, the patient will be continued on high-dose steroids over the weekend with plans to repeat his walking oximetry study on Thursday. CTA chest did rule out pulmonary embolism. Continue to wean supplemental oxygen to maintain saturations at or above 88%. I strongly suspect that the patient has long-standing hypoxia that was never previously addressed in his home environment. My concern is that the patient has developed end-stage fibrotic lung disease, with radiographic findings concerning for IPF. 2. Troponin elevation/heart failure with preserved ejection fraction Continue current medical management. Outpatient cardiac stress test planned. 3. Tobacco abuse, in remission/previous history of illicit drug use/mild transaminitis Complicates care, management, recovery and prognosis. This note was generated with [employer] dictation software. It may contain incorrect words, spelling, and punctuation that were not noted in checking the note before signing. Code Visit Inpatient E&M: 24647 Subs Hosp L2
--- NOTE | 2018-03-06 08:08 | PN_ITS ---
Patient Problems: Active and Suspected Problems Transaminitis (Acute) CAP (community acquired pneumonia) (Acute) COPD exacerbation (Acute) Elevated troponin (Acute) Subjective: The patient was seen and examined at the bedside this morning. Events from the last 24 hours have been reviewed. The patient is currently afebrile, hemodynamically stable and maintaining appropriate oxygen saturations on 4 L/ min via nasal cannula. No significant complaints this morning. The patient denies cough. Rested well overnight. Objective: The patient's most recent lab work, culture data and imaging studies have all been personally reviewed. Infectious workup has been unrevealing to date. The patient's high resolution chest CT was personally reviewed and revealed diffuse bilateral bullous emphysematous changes along with what appeared to be end- stage fibrotic and subpleural reticular changes with evidence of honeycombing. There was also evidence of bilateral patchy groundglass changes. CTA chest dated March 05 revealed no evidence for PE with some improvement in the aforementioned groundglass opacities, superimposed on chronic fibrotic lung disease. - Physical Exam General: Alert, Oriented x3, Cooperative, No apparent distress HEENT: Atraumatic, PERRLA, Normocephalic Oral: No Gingival or Mucosal Lesions/ Ulcerations Neck: Supple, No Nodes, Trachea Midline Lungs: No rhonchi, No wheeze, No rales, Diminished Cardiovascular: Regular rate, Regular Rhythm, Normal S1, Normal S2, No murmurs Abdomen: Bowel Sounds Present, Soft, Non Tender, Non-Distended Extremities: No cyanosis, No edema, Clubbing Skin: No breakdown Musculoskeletal: No Tenderness to Palpation of Joints or Extremities Lymphatic: No Cervical, Supraclavicular, or Inguinal Adenopathy Neurological: Neuro grossly intact Psych/Mental Status: Alert and oriented to time, place, person, mood and affect Vital Signs Temp Pulse Resp BP Pulse Ox 97.9 F 78 18 146/92 H 92 03/06/18 03:47 03/06/18 07:05 03/06/18 07:05 03/06/18 03:47 03/06/18 07:05 Oxygen Flow Rate (L/min) [ 6 AMBULATION with Oxygen] Oxygen Flow Rate (L/min) 4 Oxygen Delivery Method Nasal Cannula Weight: 186 lb 8.177 oz Body Mass Index (BMI) 26.7 Intake and Output for Last 24 Hours 0603/05/18 03/06/18 23:59 23:59 23:59 Intake Total 1260 / 1260 2059 300 / 300 Balance 1260 / 1260 2059 300 / 300 Microbiology Past 72 Hours 03/01/18 06:15 Blood Culture - Preliminary Blood Culture (Wb) - Anticubital Right No growth in 48 hours. Laboratory Tests Past 24 Hrs 03/03/18 03/03/18 03/03/18 08:30 08:30 08:30 WBC RBC Hgb Hct MCV MCH MCHC RDW RDW Differential Plt Count MPV Immature Gran % (Auto) Neut % (Auto) Lymph % (Auto) [place] % (Auto) Eos % (Auto) Baso % (Auto) Absolute Neuts (auto) Absolute Lymphs (auto) Total Counted Sodium Potassium Chloride Carbon Dioxide Anion Gap BUN Creatinine Estim Creat Clear Calc Est GFR (MDRD) Af Amer Est GFR (MDRD) Non-Af BUN/Creatinine Ratio Glucose Calcium Total Bilirubin Direct Bilirubin AST ALT Alkaline Phosphatase Total Protein Albumin Globulin Rbnws-1-Bdznydmmvbq 270 H Cycl Citrul Peptide IgG 6 BILL Screen Negative c-ANCA Antibody <1:20 Atypical p-ANCA <1:20 p-ANCA Antibody <1:20 03/06/18 03/06/18 05:20 05:20 WBC 19.8 H RBC 4.93 Hgb 15.3 Hct 44.3 MCV 89.9 MCH 31.0 MCHC 34.5 RDW 14.2 RDW Differential 45.3 H Plt Count 382 MPV 11.4 Immature Gran % (Auto) 0.800 Neut % (Auto) 86.4 H Lymph % (Auto) 8.1 L [place] % (Auto) 4.6 Eos % (Auto) 0.0 Baso % (Auto) 0.1 Absolute Neuts (auto) 17.2 H Absolute Lymphs (auto) 1.61 Total Counted Not Reportable Sodium 136 Potassium 5.0 Chloride 100 Carbon Dioxide 29.0 Anion Gap 7 BUN 31 H Creatinine 1.02 Estim Creat Clear Calc 83.50 Est GFR (MDRD) Af Amer 97 Est GFR (MDRD) Non-Af 80 BUN/Creatinine Ratio 30.4 H Glucose 165 H Calcium 8.6 Total Bilirubin 0.50 Direct Bilirubin 0.09 AST 38 H ALT 144 H Alkaline Phosphatase 98 Total Protein 7.6 Albumin 3.0 L Globulin 4.6 H Gqalc-0-Ihcexpswslm Cycl Citrul Peptide IgG BILL Screen c-ANCA Antibody Atypical p-ANCA p-ANCA Antibody Clinical Impression(s) from Imaging Studies Chest X-Ray 03/01/18 00:21 IMPRESSION: Chronic interstitial lung disease. Electronically Signed: Brielle Hutchinson MD at 1:51 EDT Tel , Service support , Liver Ultrasound 03/01/18 12:57 IMPRESSION: Normal right upper quadrant ultrasound examination. Electronically Signed: Kwasi Corey MD at 20:28 EDT , Service support , Chest X-Ray 03/02/18 05:59 IMPRESSION: Stable examination. Electronically Signed: Efrain Urbano MD at 11:11 EDT Tel [phone], Service support , Chest CT 03/02/18 11:46 IMPRESSION: Severe end-stage fibrotic COPD. Additionally cannot exclude patchy areas of pulmonary edema or even active infiltrates especially in the lower lobes. Electronically Signed: Kwasi Corey MD at 16:49 EDT , Service support , Chest CTA 03/05/18 11:35 IMPRESSION: There is no evidence of pulmonary embolism. Once again, degenerative diffuse increased interstitial markings in both lungs with areas of confluence in keeping with chronic interstitial fibrosis. The previously seen multifocal areas of groundglass appearance improved. Residual changes persist. Electronically Signed: Efrain Urbano MD at 13:41 EDT Tel [phone], Service support , Medical Necessity - Tobacco Use Smoking Status: Former smoker Tobacco Use: Cigarettes Assessment/Plan All Active Problems Transaminitis (Acute) CAP (community acquired pneumonia) (Acute) COPD exacerbation (Acute) Elevated troponin (Acute) RECOMMENDATIONS: 1. Continue high-dose IV steroids over the weekend with plans to repeat walking oximetry study on Thursday. 2. Continue scheduled bronchodilators 3. Continue Levaquin to complete a 7 day treatment course IMPRESSIONS: 1. 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 While a small component of his dyspnea complaints may have been secondary to diastolic heart failure with decompensation, his CT scan clearly demonstrates end-stage fibrotic lung disease. While he may also be experiencing a presumptive COPD exacerbation, his infectious workup has remained negative to date. Despite this, I would be inclined to treat the patient with antibiotics to complete a 7 day course. The patient has failed his walking oximetry studies on several occasions with significant oxygen desaturations, despite being on 6 L/min. Therefore, the patient will be continued on high-dose steroids over the weekend with plans to repeat his walking oximetry study on Thursday. CTA chest did rule out pulmonary embolism. Continue to wean supplemental oxygen to maintain saturations at or above 88%. I strongly suspect that the patient has long-standing hypoxia that was never previously addressed in his home environment. My concern is that the patient has developed end-stage fibrotic lung disease, with radiographic findings concerning for IPF. 2. Troponin elevation/heart failure with preserved ejection fraction Continue current medical management. Outpatient cardiac stress test planned. 3. Tobacco abuse, in remission/previous history of illicit drug use/mild transaminitis Complicates care, management, recovery and prognosis. This note was generated with [employer] dictation software. It may contain incorrect words, spelling, and punctuation that were not noted in checking the note before signing. Code Visit Inpatient E&M: 31984 Subs Hosp L2
[2018-03-06] MEDS: Multivitamins,Ther W-Minerals Tablet 1 TABLET PO (08:16)
[2018-03-06] MEDS: Gabapentin 300 MG Capsule PO ×2 (08:16→17:44)
[2018-03-06] MEDS: Aspirin E.C. 81 MG Tablet PO (08:16)
[2018-03-06] MEDS: Carvedilol 3.125 MG TABLET PO ×2 (10:10→22:42)
[2018-03-06] MEDS: FLUoxetine 20 MG Capsule PO ×2 (10:10→22:42)
[2018-03-06] MEDS: buPROPion (XL) 150 MG TABLET.XL PO (10:10)
--- NOTE | 2018-03-06 10:17 | PCM.PROGNOTE ---
Patient Problems: Active and Suspected Problems Transaminitis (Acute) CAP (community acquired pneumonia) (Acute) COPD exacerbation (Acute) Elevated troponin (Acute) Subjective: Patient seen and examined. No acute events overnight. Patient states breathing has stayed about the same. Breathing continues to be stable at rest with increased dyspnea with exertion. Patient states yesterday after walking pulse ox and took him a while to catch his breath after test was completed. Denies cough, fever, chills. No other complaints at this time. - Physical Exam General: Alert, Oriented x3, Cooperative HEENT: Atraumatic, PERRLA, EOMI, Normocephalic Neck: Supple, No JVD, Negative Carotid Bruits Lungs: Clear to auscultation, Diminished Cardiovascular: Regular rate, Regular Rhythm, Normal S1, Normal S2, No murmurs Abdomen: Bowel Sounds Present, Soft, Non Tender, Non-Distended Extremities: No clubbing, No cyanosis, No edema, Capillary Refill Less than 3 Seconds Skin: No rashes, No breakdown Musculoskeletal: No Tenderness to Palpation of Joints or Extremities Neurological: Cranial nerves II-XII grossly intact, Neuro grossly intact Psych/Mental Status: Normal Affect, Appropriate Vital Signs Temp Pulse Resp BP Pulse Ox 97.8 F 83 18 139/93 H 94 03/06/18 10:12 03/06/18 10:12 03/06/18 10:12 03/06/18 10:12 03/06/18 10:12 Oxygen Flow Rate (L/min) [ 6 AMBULATION with Oxygen] Oxygen Flow Rate (L/min) 4 Oxygen Delivery Method Nasal Cannula Weight: 84.6 kg Body Mass Index (BMI) 26.7 Intake and Output for Last 24 Hours 03/04/18 03/05/18 03/06/18 23:59 23:59 23:59 Intake Total 1260 / 1260 2059 / 2059 300 / 300 Balance 1260 / 1260 2059 / 2059 300 / 300 Microbiology Past 72 Hours 03/01/18 06:15 Blood Culture - Final Blood Culture (Wb) - Anticubital Right No growth in 5 days. Laboratory Tests Past 24 Hrs 03/03/18 03/03/18 03/03/18 08:30 08:30 08:30 WBC RBC Hgb Hct MCV MCH MCHC RDW RDW Differential Plt Count MPV Immature Gran % (Auto) Neut % (Auto) Lymph % (Auto) [place] % (Auto) Eos % (Auto) Baso % (Auto) Absolute Neuts (auto) Absolute Lymphs (auto) Total Counted Sodium Potassium Chloride Carbon Dioxide Anion Gap BUN Creatinine Estim Creat Clear Calc Est GFR (MDRD) Af Amer Est GFR (MDRD) Non-Af BUN/Creatinine Ratio Glucose Calcium Total Bilirubin Direct Bilirubin AST ALT Alkaline Phosphatase Total Protein Albumin Globulin Fjpvf-7-Zvddjsoswsk 270 H Cycl Citrul Peptide IgG 6 BILL Screen Negative c-ANCA Antibody <1:20 Atypical p-ANCA <1:20 p-ANCA Antibody <1:20 03/06/18 03/06/18 05:20 05:20 WBC 19.8 H RBC 4.93 Hgb 15.3 Hct 44.3 MCV 89.9 MCH 31.0 MCHC 34.5 RDW 14.2 RDW Differential 45.3 H Plt Count 382 MPV 11.4 Immature Gran % (Auto) 0.800 Neut % (Auto) 86.4 H Lymph % (Auto) 8.1 L [place] % (Auto) 4.6 Eos % (Auto) 0.0 Baso % (Auto) 0.1 Absolute Neuts (auto) 17.2 H Absolute Lymphs (auto) 1.61 Total Counted Not Reportable Sodium 136 Potassium 5.0 Chloride 100 Carbon Dioxide 29.0 Anion Gap 7 BUN 31 H Creatinine 1.02 Estim Creat Clear Calc 83.50 Est GFR (MDRD) Af Amer 97 Est GFR (MDRD) Non-Af 80 BUN/Creatinine Ratio 30.4 H Glucose 165 H Calcium 8.6 Total Bilirubin 0.50 Direct Bilirubin 0.09 AST 38 H ALT 144 H Alkaline Phosphatase 98 Total Protein 7.6 Albumin 3.0 L Globulin 4.6 H Qrfec-7-Iqqyesjdzlt Cycl Citrul Peptide IgG BILL Screen c-ANCA Antibody Atypical p-ANCA p-ANCA Antibody Medical Necessity - Tobacco Use Smoking Status: Former smoker Tobacco Use: Cigarettes Assessment/Plan All Active Problems Transaminitis (Acute) CAP (community acquired pneumonia) (Acute) COPD exacerbation (Acute) Elevated troponin (Acute) Patient is a 58-year-old male admitted 03/01/2018 due to worsening shortness of breath. He has a past medical history of anxiety, depression, polysubstance abuse and history of tobacco dependence with and December 2017. 1. Acute hypoxic respiratory failure secondary to acute on suspected chronic COPD exacerbation-Continue IV Solu-Medrol. Continue oral Levaquin for 2 more days, stop date 03/09/2018. Patient's breathing improved at rest. CT shows extensive severe fibrotic changes. CTA of chest showed no evidence of pulmonary embolism. If patient is not improve over the weekend, will need transfer to tertiary care center for possible lung biopsy with VATS. Repeat walking pulse ox today. Patient remains on 4 L nasal cannula at rest. Requiring 6 L to maintain oxygen saturation with minimal ambulation. Pulmonary medicine following. 2. Acute diastolic CHF-echocardiogram shows an EF of 60%, stage I diastolic dysfunction, pulmonary artery systolic pressure 38 mmHg. Patient received IV Lasix which has since been discontinued. F/u with cardiology as outpatient. 3. Elevated troponin-suspected secondary to demand ischemia secondary to #1. Patient will follow up with cardiology as outpatient with possible stress test in the future. 4. Hypokalemia-resolved. 5. Mildly elevated LFTs-liver ultrasound unremarkable. Hepatitis panel unremarkable. Continue outpatient follow-up. 6. Anxiety, depression-continue home Wellbutrin, Prozac regimen. 7. History of polysubstance abuse and tobacco dependence-tobacco cessation December 2017. Encouraged continued cessation. Urine drug screen positive for cannabis. Encourage cessation of cannabis as well. DVT prophylaxis-Lovenox SC This patient was seen by FRANCISCO JAVIER Mayberry under the supervision of Dr. Erazo.
[2018-03-06] MEDS: Atorvastatin Calcium 80 MG Tablet PO (22:42)
[2018-03-06] MEDS: Zolpidem Tartrate 5 MG Tablet PO (22:42)
[2018-03-06] MEDS: Acetaminophen 500 MG Tablet 1000 MG PO (22:47)
[2018-03-07] VITALS (16 sets, daily range): BP systolic 125–152; BP diastolic 85–99; PULSE 58–120; RESP 16–20; TEMP 36.7–37.1; O2SAT 70–95
[2018-03-07] MEDS: Enoxaparin 40 MG/0.4 ML Syringe SC (05:32)
[2018-03-07] MEDS: levoFLOXacin 750 MG Tablet PO (05:32)
[2018-03-07 05:54] LABS: Absolute Lymphocyte Count 1.31 X10^3/ul (0.83-4.51); Absolute Neutrophil Count 17.6 X10^3/uL (2.0-7.7); Basophil# 0.01 X10^3/uL; Hematocrit 42.7 % (40-54); Hemoglobin 14.9 g/dl (13.0-16.5); Lymphocyte # 1.31 X10^3/ul (4.0); Lymphocyte % 6.5 % (19-41); Mean Corp Hgb Conc 34.9 g/gl (32-36); Mean Corpuscular Hgb 31.4 pg (27.0-32.0); Mean Corpuscular Volume 90.1 fL (80-94); Mean Platelet Vol. 11.4 fl (6.2-12.0); Monocyte# 0.96 X10^3/uL; Monocyte% 4.8 % (0-10); Neutrophil # 17.64 X10^3/uL (2.7-7.7); Platelet Count 363 K/mm3 (150-450); RBC Distribution Width CV 14.1 % (11.6-14.6); RBC Distribution Width SD 45.6 fl (35.1-43.9); Red Blood Count 4.74 M/mm3 (4.6-6.2); White Blood Count 20.1 K/mm3 (4.4-11.0)
[2018-03-07 06:21] LABS: AST(SGOT) 23 U/L (15-37); Alanine Aminotransfer ALT/SGPT 116 U/L (16-61); Alkaline Phosphatase 95 U/L (45-117); Anion Gap 8 (5-15); BUN 27 mg/dL (7-18); BUN/Creat Ratio 26.5 RATIO (10-20); Bilirubin, Direct 0.11 mg/dL (0.00-0.30); Calcium,Total 8.8 mg/dL (8.5-10.1); Chloride 99 mmol/L (98-107); Creatinine, Serum 1.02 mg/dL (0.70-1.30); EST Glomerular Filtration Rate 80 mL/min (>60); Est Glom Filt Rate - Afr Amer 97 mL/min (>60); Globulin 4.2 g/dL (2.2-4.2); Glucose 188 mg/dL (74-106); Potassium 5.4 mmol/L (3.5-5.1); Protein, Total 7.2 g/dL (6.4-8.2); Sodium Level 135 mmol/L (136-145)
[2018-03-07 06:38] LABS: POSITIVE COUNT NO; POSITIVE DIFFERENTIAL NO; POSITIVE MORPHOLOGY NO
[2018-03-07] MEDS: Ipratropium/Albuterol Sulfate 3 ML AMPUL.NEB INHALATION ×4 (07:09→20:33)
[2018-03-07] MEDS: Aspirin E.C. 81 MG Tablet PO (08:11)
[2018-03-07] MEDS: Gabapentin 300 MG Capsule PO ×2 (08:11→17:06)
[2018-03-07] MEDS: Multivitamins,Ther W-Minerals Tablet 1 TABLET PO (08:11)
--- NOTE | 2018-03-07 08:22 | PCM.PROGNOTE ---
Patient Problems: Active and Suspected Problems Transaminitis (Acute) CAP (community acquired pneumonia) (Acute) COPD exacerbation (Acute) Elevated troponin (Acute) Subjective: The patient was seen and examined at the bedside this morning. Events from the last 24 hours have been reviewed. The patient is currently afebrile, hemodynamically stable and maintaining appropriate oxygen saturations on 3 L/min via nasal cannula. The patient appears to be slowly clinically improving. No cough or resting dyspnea is noted. Objective: The patient's most recent lab work, culture data and imaging studies have all been personally reviewed. Infectious workup has been unrevealing to date. The patient's high resolution chest CT was personally reviewed and revealed diffuse bilateral bullous emphysematous changes along with what appeared to be end-stage fibrotic and subpleural reticular changes with evidence of honeycombing. There was also evidence of bilateral patchy groundglass changes. CTA chest dated March 05 revealed no evidence for PE with some improvement in the aforementioned groundglass opacities, superimposed on chronic fibrotic lung disease. - Physical Exam General: Alert, Cooperative, No apparent distress HEENT: Atraumatic, PERRLA, Normocephalic Oral: No Gingival or Mucosal Lesions/ Ulcerations Neck: Supple, No Nodes, Trachea Midline Lungs: No rhonchi, No wheeze, No rales, Diminished Cardiovascular: Regular rate, Regular Rhythm, Normal S1, Normal S2, No murmurs Abdomen: Bowel Sounds Present, Soft, Non Tender, Non-Distended Extremities: No cyanosis, No edema, Clubbing Skin: No breakdown Musculoskeletal: No Tenderness to Palpation of Joints or Extremities, No Muscle Wasting Lymphatic: No Cervical, Supraclavicular, or Inguinal Adenopathy Neurological: Cranial nerves II-XII grossly intact, Neuro grossly intact Psych/Mental Status: Alert and oriented to time, place, person, mood and affect Vital Signs Temp Pulse Resp BP Pulse Ox 98.3 F 81 18 146/99 H 93 03/07/18 08:09 03/07/18 08:09 03/07/18 08:09 03/07/18 08:09 03/07/18 08:09 Oxygen Flow Rate (L/min) [ 6 AMBULATION with Oxygen] Oxygen Flow Rate (L/min) 3 Oxygen Delivery Method Nasal Cannula Weight: 186 lb 8.177 oz Body Mass Index (BMI) 26.7 Intake and Output for Last 24 Hours 03/05/18 03/06/18 03/07/18 23:59 23:59 23:59 Intake Total 2059 360 / 360 Balance 2059 360 / 360 Microbiology Past 72 Hours 03/01/18 06:15 Blood Culture - Final Blood Culture (Wb) - Anticubital Right No growth in 5 days. Laboratory Tests Past 24 Hrs 03/07/18 03/07/18 04:45 04:45 WBC 20.1 H RBC 4.74 Hgb 14.9 Hct 42.7 MCV 90.1 MCH 31.4 MCHC 34.9 RDW 14.1 RDW Differential 45.6 H Plt Count 363 MPV 11.4 Immature Gran % (Auto) 0.700 Neut % (Auto) 88.0 H Lymph % (Auto) 6.5 L [place] % (Auto) 4.8 Eos % (Auto) 0.0 Baso % (Auto) 0.0 Absolute Neuts (auto) 17.6 H Absolute Lymphs (auto) 1.31 Total Counted Not Reportable Sodium 135 L Potassium 5.4 H Chloride 99 Carbon Dioxide 28.0 Anion Gap 8 BUN 27 H Creatinine 1.02 Estim Creat Clear Calc 83.50 Est GFR (MDRD) Af Amer 97 Est GFR (MDRD) Non-Af 80 BUN/Creatinine Ratio 26.5 H Glucose 188 H Calcium 8.8 Total Bilirubin 0.50 Direct Bilirubin 0.11 AST 23 ALT 116 H Alkaline Phosphatase 95 Total Protein 7.2 Albumin 3.0 L Globulin 4.2 Clinical Impression(s) from Imaging Studies Chest X-Ray 03/01/18 00:21 IMPRESSION: Chronic interstitial lung disease. Electronically Signed: Brielle Hutchinson MD at 1:51 EDT Tel , Service support , Liver Ultrasound 03/01/18 12:57 IMPRESSION: Normal right upper quadrant ultrasound examination. Electronically Signed: Kwasi Corey MD at 20:28 EDT , Service support , Chest X-Ray 03/02/18 05:59 IMPRESSION: Stable examination. Electronically Signed: Efrain Urbano MD at 11:11 EDT Tel [phone], Service support , Chest CT 03/02/18 11:46 IMPRESSION: Severe end-stage fibrotic COPD. Additionally cannot exclude patchy areas of pulmonary edema or even active infiltrates especially in the lower lobes. Electronically Signed: Kwasi Corey MD at 16:49 EDT , Service support , Chest CTA 03/05/18 11:35 IMPRESSION: There is no evidence of pulmonary embolism. Once again, degenerative diffuse increased interstitial markings in both lungs with areas of confluence in keeping with chronic interstitial fibrosis. The previously seen multifocal areas of groundglass appearance improved. Residual changes persist. Electronically Signed: Efrain Urbano MD at 13:41 EDT Tel [phone], Service support , Medical Necessity - Tobacco Use Smoking Status: Former smoker Tobacco Use: Cigarettes Assessment/Plan All Active Problems Transaminitis (Acute) CAP (community acquired pneumonia) (Acute) COPD exacerbation (Acute) Elevated troponin (Acute) RECOMMENDATIONS: 1. Continue high-dose IV steroids over the weekend with plans to repeat walking oximetry study on Thursday. 2. Continue scheduled bronchodilators 3. Continue Levaquin to complete a 7 day treatment course IMPRESSIONS: 1. Acute hypoxemic respiratory failure I am doubtful that the patient's presentation is simply accounting representative of straightforward CHF exacerbation. While a small component of his dyspnea complaints may have been secondary to diastolic heart failure with decompensation, his CT scan clearly demonstrates end-stage fibrotic lung disease. While he may also be experiencing a presumptive COPD exacerbation, his infectious workup has remained negative to date. Despite this, I would be inclined to treat the patient with antibiotics to complete a 7 day course. The patient has failed his walking oximetry studies on several occasions with significant oxygen desaturations, despite being on 6 L/min. Therefore, the patient will be continued on high-dose steroids over the weekend with plans to repeat his walking oximetry study on Thursday. CTA chest did rule out pulmonary embolism. Continue to wean supplemental oxygen to maintain saturations at or above 88%. I strongly suspect that the patient has long-standing hypoxia that was never previously addressed in his home environment. My concern is that the patient has developed end-stage fibrotic lung disease, with radiographic findings concerning for IPF. 2. Troponin elevation/heart failure with preserved ejection fraction Continue current medical management. Outpatient cardiac stress test planned. 3. Tobacco abuse, in remission/previous history of illicit drug use/mild transaminitis Complicates care, management, recovery and prognosis. This note was generated with [employer] dictation software. It may contain incorrect words, spelling, and punctuation that were not noted in checking the note before signing. Code Visit Inpatient E&M: 53293 Subs Hosp L2
--- NOTE | 2018-03-07 08:25 | PN_ITS ---
Patient Problems: Active and Suspected Problems Transaminitis (Acute) CAP (community acquired pneumonia) (Acute) COPD exacerbation (Acute) Elevated troponin (Acute) Subjective: The patient was seen and examined at the bedside this morning. Events from the last 24 hours have been reviewed. The patient is currently afebrile, hemodynamically stable and maintaining appropriate oxygen saturations on 3 L/ min via nasal cannula. The patient appears to be slowly clinically improving. No cough or resting dyspnea is noted. Objective: The patient's most recent lab work, culture data and imaging studies have all been personally reviewed. Infectious workup has been unrevealing to date. The patient's high resolution chest CT was personally reviewed and revealed diffuse bilateral bullous emphysematous changes along with what appeared to be end- stage fibrotic and subpleural reticular changes with evidence of honeycombing. There was also evidence of bilateral patchy groundglass changes. CTA chest dated March 05 revealed no evidence for PE with some improvement in the aforementioned groundglass opacities, superimposed on chronic fibrotic lung disease. - Physical Exam General: Alert, Cooperative, No apparent distress HEENT: Atraumatic, PERRLA, Normocephalic Oral: No Gingival or Mucosal Lesions/ Ulcerations Neck: Supple, No Nodes, Trachea Midline Lungs: No rhonchi, No wheeze, No rales, Diminished Cardiovascular: Regular rate, Regular Rhythm, Normal S1, Normal S2, No murmurs Abdomen: Bowel Sounds Present, Soft, Non Tender, Non-Distended Extremities: No cyanosis, No edema, Clubbing Skin: No breakdown Musculoskeletal: No Tenderness to Palpation of Joints or Extremities, No Muscle Wasting Lymphatic: No Cervical, Supraclavicular, or Inguinal Adenopathy Neurological: Cranial nerves II-XII grossly intact, Neuro grossly intact Psych/Mental Status: Alert and oriented to time, place, person, mood and affect Vital Signs Temp Pulse Resp BP Pulse Ox 98.3 F 81 18 146/99 H 93 03/07/18 08:09 03/07/18 08:09 03/07/18 08:09 03/07/18 08:09 03/07/18 08:09 Oxygen Flow Rate (L/min) [ 6 AMBULATION with Oxygen] Oxygen Flow Rate (L/min) 3 Oxygen Delivery Method Nasal Cannula Weight: 186 lb 8.177 oz Body Mass Index (BMI) 26.7 Intake and Output for Last 24 Hours 03/05/18 03/06/18 03/07/18 23:59 23:59 23:59 Intake Total 2059 360 / 360 Balance 2059 360 / 360 Microbiology Past 72 Hours 03/01/18 06:15 Blood Culture - Final Blood Culture (Wb) - Anticubital Right No growth in 5 days. Laboratory Tests Past 24 Hrs 03/07/18 03/07/18 04:45 04:45 WBC 20.1 H RBC 4.74 Hgb 14.9 Hct 42.7 MCV 90.1 MCH 31.4 MCHC 34.9 RDW 14.1 RDW Differential 45.6 H Plt Count 363 MPV 11.4 Immature Gran % (Auto) 0.700 Neut % (Auto) 88.0 H Lymph % (Auto) 6.5 L [place] % (Auto) 4.8 Eos % (Auto) 0.0 Baso % (Auto) 0.0 Absolute Neuts (auto) 17.6 H Absolute Lymphs (auto) 1.31 Total Counted Not Reportable Sodium 135 L Potassium 5.4 H Chloride 99 Carbon Dioxide 28.0 Anion Gap 8 BUN 27 H Creatinine 1.02 Estim Creat Clear Calc 83.50 Est GFR (MDRD) Af Amer 97 Est GFR (MDRD) Non-Af 80 BUN/Creatinine Ratio 26.5 H Glucose 188 H Calcium 8.8 Total Bilirubin 0.50 Direct Bilirubin 0.11 AST 23 ALT 116 H Alkaline Phosphatase 95 Total Protein 7.2 Albumin 3.0 L Globulin 4.2 Clinical Impression(s) from Imaging Studies Chest X-Ray 03/01/18 00:21 IMPRESSION: Chronic interstitial lung disease. Electronically Signed: Brielle Hutchinson MD at 1:51 EDT Tel , Service support , Liver Ultrasound 03/01/18 12:57 IMPRESSION: Normal right upper quadrant ultrasound examination. Electronically Signed: Kwasi Corey MD at 20:28 EDT , Service support , Chest X-Ray 03/02/18 05:59 IMPRESSION: Stable examination. Electronically Signed: Efrain Urbano MD at 11:11 EDT Tel [phone], Service support , Chest CT 03/02/18 11:46 IMPRESSION: Severe end-stage fibrotic COPD. Additionally cannot exclude patchy areas of pulmonary edema or even active infiltrates especially in the lower lobes. Electronically Signed: Kwasi Corey MD at 16:49 EDT , Service support , Chest CTA 03/05/18 11:35 IMPRESSION: There is no evidence of pulmonary embolism. Once again, degenerative diffuse increased interstitial markings in both lungs with areas of confluence in keeping with chronic interstitial fibrosis. The previously seen multifocal areas of groundglass appearance improved. Residual changes persist. Electronically Signed: Efrain Urbano MD at 13:41 EDT Tel [phone], Service support , Medical Necessity - Tobacco Use Smoking Status: Former smoker Tobacco Use: Cigarettes Assessment/Plan All Active Problems Transaminitis (Acute) CAP (community acquired pneumonia) (Acute) COPD exacerbation (Acute) Elevated troponin (Acute) RECOMMENDATIONS: 1. Continue high-dose IV steroids over the weekend with plans to repeat walking oximetry study on Thursday. 2. Continue scheduled bronchodilators 3. Continue Levaquin to complete a 7 day treatment course IMPRESSIONS: 1. Acute hypoxemic respiratory failure I am doubtful that the patient's presentation is simply medical sales representative of straightforward CHF exacerbation. While a small component of his dyspnea complaints may have been secondary to diastolic heart failure with decompensation, his CT scan clearly demonstrates end-stage fibrotic lung disease. While he may also be experiencing a presumptive COPD exacerbation, his infectious workup has remained negative to date. Despite this, I would be inclined to treat the patient with antibiotics to complete a 7 day course. The patient has failed his walking oximetry studies on several occasions with significant oxygen desaturations, despite being on 6 L/min. Therefore, the patient will be continued on high-dose steroids over the weekend with plans to repeat his walking oximetry study on Thursday. CTA chest did rule out pulmonary embolism. Continue to wean supplemental oxygen to maintain saturations at or above 88%. I strongly suspect that the patient has long-standing hypoxia that was never previously addressed in his home environment. My concern is that the patient has developed end-stage fibrotic lung disease, with radiographic findings concerning for IPF. 2. Troponin elevation/heart failure with preserved ejection fraction Continue current medical management. Outpatient cardiac stress test planned. 3. Tobacco abuse, in remission/previous history of illicit drug use/mild transaminitis Complicates care, management, recovery and prognosis. This note was generated with [employer]agin[employer] dictation software. It may contain incorrect words, spelling, and punctuation that were not noted in checking the note before signing. Code Visit Inpatient E&M: 54317 Subs Hosp L2
[2018-03-07] MEDS: buPROPion (XL) 150 MG TABLET.XL PO (09:34)
[2018-03-07] MEDS: FLUoxetine 20 MG Capsule PO ×2 (09:34→22:06)
[2018-03-07] MEDS: Carvedilol 3.125 MG TABLET PO ×2 (09:34→22:06)
[2018-03-07] MEDS: Acetaminophen 500 MG Tablet 1000 MG PO (09:37)
--- NOTE | 2018-03-07 10:03 | PCM.PROGNOTE ---
Patient Problems: Active and Suspected Problems Transaminitis (Acute) CAP (community acquired pneumonia) (Acute) COPD exacerbation (Acute) Elevated troponin (Acute) Subjective: Patient seen and examined. States he continues to feel improved. Oxygen now at 2-3 L nasal cannula at rest. Walking pulse ox improved from prior. Patient wishes to shower. Denies other complaints. - Physical Exam General: Alert, Oriented x3, Cooperative HEENT: Atraumatic, PERRLA, EOMI, Normocephalic Neck: Supple, No JVD, Negative Carotid Bruits Lungs: Clear to auscultation, Diminished Cardiovascular: Regular rate, Regular Rhythm, Normal S1, Normal S2, No murmurs Abdomen: Bowel Sounds Present, Soft, Non Tender, Non-Distended Extremities: No clubbing, No cyanosis, No edema, Capillary Refill Less than 3 Seconds Skin: No rashes, No breakdown Musculoskeletal: No Tenderness to Palpation of Joints or Extremities Neurological: Cranial nerves II-XII grossly intact, Neuro grossly intact Psych/Mental Status: Normal Affect, Appropriate Vital Signs Temp Pulse Resp BP Pulse Ox 98.3 F 81 18 146/99 H 93 03/07/18 08:09 03/07/18 08:09 03/07/18 08:09 03/07/18 08:09 03/07/18 08:09 Oxygen Flow Rate (L/min) [ 6 AMBULATION with Oxygen] Oxygen Flow Rate (L/min) 3 Oxygen Delivery Method Nasal Cannula Weight: 84.6 kg Body Mass Index (BMI) 26.7 Intake and Output for Last 24 Hours 03/05/18 03/06/18 03/07/18 23:59 23:59 23:59 Intake Total 2059 360 / 360 Balance 2059 360 / 360 Microbiology Past 72 Hours 03/01/18 06:15 Blood Culture - Final Blood Culture (Wb) - Anticubital Right No growth in 5 days. Laboratory Tests Past 24 Hrs 03/07/18 03/07/18 04:45 04:45 WBC 20.1 H RBC 4.74 Hgb 14.9 Hct 42.7 MCV 90.1 MCH 31.4 MCHC 34.9 RDW 14.1 RDW Differential 45.6 H Plt Count 363 MPV 11.4 Immature Gran % (Auto) 0.700 Neut % (Auto) 88.0 H Lymph % (Auto) 6.5 L [place] % (Auto) 4.8 Eos % (Auto) 0.0 Baso % (Auto) 0.0 Absolute Neuts (auto) 17.6 H Absolute Lymphs (auto) 1.31 Total Counted Not Reportable Sodium 135 L Potassium 5.4 H Chloride 99 Carbon Dioxide 28.0 Anion Gap 8 BUN 27 H Creatinine 1.02 Estim Creat Clear Calc 83.50 Est GFR (MDRD) Af Amer 97 Est GFR (MDRD) Non-Af 80 BUN/Creatinine Ratio 26.5 H Glucose 188 H Calcium 8.8 Total Bilirubin 0.50 Direct Bilirubin 0.11 AST 23 ALT 116 H Alkaline Phosphatase 95 Total Protein 7.2 Albumin 3.0 L Globulin 4.2 Medical Necessity - Tobacco Use Smoking Status: Former smoker Tobacco Use: Cigarettes Assessment/Plan All Active Problems Transaminitis (Acute) CAP (community acquired pneumonia) (Acute) COPD exacerbation (Acute) Elevated troponin (Acute) Patient is a 58-year-old male admitted 03/01/2018 due to worsening shortness of breath. He has a past medical history of anxiety, depression, polysubstance abuse and history of tobacco dependence with and December 2017. 1. Acute hypoxic respiratory failure secondary to acute on suspected chronic COPD exacerbation-Continue IV Solu-Medrol. Continue oral Levaquin for 1 more days, stop date 03/09/2018. Patient's breathing improved at rest. CT shows extensive severe fibrotic changes. CTA of chest showed no evidence of pulmonary embolism. If patient is not improve over the weekend, will need transfer to tertiary care center for possible lung biopsy with VATS. Repeat walking pulse ox slightly improved from previous assessments. Patient remains on 2-3 L nasal cannula at rest. Pulmonary medicine following. 2. Acute diastolic CHF-echocardiogram shows an EF of 60%, stage I diastolic dysfunction, pulmonary artery systolic pressure 38 mmHg. Patient received IV Lasix which has since been discontinued. F/u with cardiology as outpatient. 3. Elevated troponin-suspected secondary to demand ischemia secondary to #1. Patient will follow up with cardiology as outpatient with possible stress test in the future. 4. Hypokalemia-resolved. 5. Mildly elevated LFTs-liver ultrasound unremarkable. Hepatitis panel unremarkable. Continue outpatient follow-up. 6. Anxiety, depression-continue home Wellbutrin, Prozac regimen. 7. History of polysubstance abuse and tobacco dependence-tobacco cessation December 2017. Encouraged continued cessation. Urine drug screen positive for cannabis. Encourage cessation of cannabis as well. DVT prophylaxis-Lovenox SC This patient was seen by FRANCISCO JAVIER Mayberry under the supervision of Dr. Erazo.
[2018-03-07] MEDS: 0.9% NaCl Peripheral Flush Adult/Peds IV ×2 (12:18→23:13)
[2018-03-07] MEDS: Zolpidem Tartrate 5 MG Tablet PO (22:07)
[2018-03-07] MEDS: Atorvastatin Calcium 80 MG Tablet PO (22:07)
[2018-03-08] VITALS (13 sets, daily range): BP systolic 135–155; BP diastolic 85–93; PULSE 56–104; RESP 14–20; TEMP 36.7–37; O2SAT 76–96
[2018-03-08] MEDS: Acetaminophen 500 MG Tablet 1000 MG PO (04:10)
[2018-03-08] MEDS: Enoxaparin 40 MG/0.4 ML Syringe SC (06:06)
[2018-03-08] MEDS: levoFLOXacin 750 MG Tablet PO (06:06)
[2018-03-08 06:11] LABS: Absolute Lymphocyte Count 1.77 X10^3/ul (0.83-4.51); Absolute Neutrophil Count 17.8 X10^3/uL (2.0-7.7); Basophil# 0.01 X10^3/uL; Hematocrit 45.8 % (40-54); Lymphocyte # 1.77 X10^3/ul (4.0); Lymphocyte % 8.4 % (19-41); Mean Corp Hgb Conc 34.9 g/gl (32-36); Mean Corpuscular Hgb 30.8 pg (27.0-32.0); Mean Corpuscular Volume 88.1 fL (80-94); Monocyte# 1.39 X10^3/uL; Monocyte% 6.6 % (0-10); Neutrophil # 17.79 X10^3/uL (2.7-7.7); Neutrophil % 84.1 % (47-70); Platelet Count 462 K/mm3 (150-450); RBC Distribution Width CV 13.9 % (11.6-14.6); RBC Distribution Width SD 44.4 fl (35.1-43.9); White Blood Count 21.2 K/mm3 (4.4-11.0)
[2018-03-08 06:26] LABS: POSITIVE COUNT NO; POSITIVE DIFFERENTIAL NO; POSITIVE MORPHOLOGY NO
[2018-03-08 06:33] LABS: AST(SGOT) 24 U/L (15-37); Alanine Aminotransfer ALT/SGPT 109 U/L (16-61); Albumin, Serum 3.3 g/dL (3.2-5.0); Alkaline Phosphatase 95 U/L (45-117); Anion Gap 7 (5-15); BUN 27 mg/dL (7-18); BUN/Creat Ratio 24.1 RATIO (10-20); Bilirubin, Direct 0.13 mg/dL (0.00-0.30); Calcium,Total 9.2 mg/dL (8.5-10.1); Chloride 96 mmol/L (98-107); Creatinine, Serum 1.12 mg/dL (0.70-1.30); EST Glomerular Filtration Rate 72 mL/min (>60); Est Glom Filt Rate - Afr Amer 87 mL/min (>60); Estimated Creatinine Clearance 76.04 ml/min; Globulin 4.4 g/dL (2.2-4.2); Glucose 153 mg/dL (74-106); Potassium 5.1 mmol/L (3.5-5.1); Protein, Total 7.7 g/dL (6.4-8.2); Sodium Level 134 mmol/L (136-145)
[2018-03-08] MEDS: Ipratropium/Albuterol Sulfate 3 ML AMPUL.NEB INHALATION ×3 (06:53→14:29)
[2018-03-08] MEDS: Aspirin E.C. 81 MG Tablet PO (07:58)
[2018-03-08] MEDS: Multivitamins,Ther W-Minerals Tablet 1 TABLET PO (07:58)
[2018-03-08] MEDS: Gabapentin 300 MG Capsule PO (07:58)
[2018-03-08] MEDS: FLUoxetine 20 MG Capsule PO (09:38)
[2018-03-08] MEDS: Carvedilol 3.125 MG TABLET PO (09:38)
[2018-03-08] MEDS: buPROPion (XL) 150 MG TABLET.XL PO (09:38)
--- NOTE | 2018-03-08 10:43 | PCM.PROGNOTE ---
Patient Problems: Active and Suspected Problems Transaminitis (Acute) CAP (community acquired pneumonia) (Acute) COPD exacerbation (Acute) Elevated troponin (Acute) Subjective: Patient seen and examined. He is lying in bed, receiving a breathing treatment at this time. Denies any shortness of breath, cough, or sputum production. He still complains of dyspnea on exertion, however this has improved. Patient had a repeat ambulatory pulse ox this morning and showed improvement in desaturations, he was 82% on 6 L with ambulation. However, his recovery time was less. Objective: Recent lab and culture data reviewed. Infectious workup negative. CT of the chest revealed diffuse bilateral bullous emphysematous changes along with what appeared to be end-stage fibrotic and subpleural reticular changes with evidence of honeycombing. There was also evidence of bilateral patchy groundglass changes. CTA chest dated March 05 revealed no evidence for PE with some improvement in the aforementioned groundglass opacities, superimposed on chronic fibrotic lung disease. - Physical Exam General: Alert, Oriented x3, Cooperative, No apparent distress, - - No conversational dyspnea HEENT: Atraumatic, Normocephalic Oral: Moist Mucosa, No Gingival or Mucosal Lesions/ Ulcerations Neck: Supple, No Nodes, Trachea Midline Cardiovascular: Regular rate, Regular Rhythm, Normal S1, Normal S2, No murmurs, No rub noted, No Gallop Abdomen: Bowel Sounds Present, Soft, Non Tender, Non-Distended Extremities: No cyanosis, No edema, Clubbing Skin: - - No changes from previous Musculoskeletal: No Tenderness to Palpation of Joints or Extremities Lymphatic: - - No adenopathy Neurological: Cranial nerves II-XII grossly intact, Neuro grossly intact, Motor Exam 5/5 strength throughout Psych/Mental Status: Alert and oriented to time, place, person, mood and affect Vital Signs Temp Pulse Resp BP Pulse Ox 98.1 F 80 18 138/89 H 94 03/08/18 09:36 03/08/18 09:36 03/08/18 09:36 03/08/18 09:36 03/08/18 09:36 Oxygen Flow Rate (L/min) [ 6 AMBULATION with Oxygen] Oxygen Flow Rate (L/min) 3 Oxygen Delivery Method Nasal Cannula Weight: 186 lb 8.177 oz Body Mass Index (BMI) 26.7 Intake and Output for Last 24 Hours 03/06/18 03/07/18 03/08/18 23:59 23:59 23:59 Intake Total 2114 1220 / 1220 Balance 2114 1220 / 1220 Microbiology Past 72 Hours 03/01/18 06:15 Blood Culture - Final Blood Culture (Wb) - Anticubital Right No growth in 5 days. Laboratory Tests Past 24 Hrs 03/08/18 03/08/18 05:35 05:35 WBC 21.2 H RBC 5.20 Hgb 16.0 Hct 45.8 MCV 88.1 MCH 30.8 MCHC 34.9 RDW 13.9 RDW Differential 44.4 H Plt Count 462 H MPV 11.0 Immature Gran % (Auto) 0.900 Neut % (Auto) 84.1 H Lymph % (Auto) 8.4 L [place] % (Auto) 6.6 Eos % (Auto) 0.0 Baso % (Auto) 0.0 Absolute Neuts (auto) 17.8 H Absolute Lymphs (auto) 1.77 Total Counted Not Reportable Sodium 134 L Potassium 5.1 Chloride 96 L Carbon Dioxide 31.0 Anion Gap 7 BUN 27 H Creatinine 1.12 Estim Creat Clear Calc 76.04 Est GFR (MDRD) Af Amer 87 Est GFR (MDRD) Non-Af 72 BUN/Creatinine Ratio 24.1 H Glucose 153 H Calcium 9.2 Total Bilirubin 0.70 Direct Bilirubin 0.13 AST 24 ALT 109 H Alkaline Phosphatase 95 Total Protein 7.7 Albumin 3.3 Globulin 4.4 H Medical Necessity - Tobacco Use Smoking Status: Former smoker Tobacco Use: Cigarettes Assessment/Plan All Active Problems Transaminitis (Acute) CAP (community acquired pneumonia) (Acute) COPD exacerbation (Acute) Elevated troponin (Acute) RECOMMENDATIONS 1. Wean oxygen supplementation to keep saturations 88-92%. 2. Encourage incentive spirometer/Acapella 3. Increase activity as tolerated 4. Continue bronchodilators 5. Transition to 60 mg of prednisone and continue until follow-up in the pulmonary clinic 6. Continue Levaquin to complete 7 day course 7. Follow-up in the pulmonary clinic in 2 weeks with [employer] at which time formal pulmonary function tests can be ordered. 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 His high oxygen requirements currently do not allow him to do light duty. This can be readdressed as outpatient. 8. Okay to d/c from pulmonary standpoint if oxygenation acceptable IMPRESSIONS 1. Acute hypoxic respiratory failure likely secondary to diastolic CHF, possible COPD exacerbation in the setting of end-stage Minimal improvement with diuresis. Continue to wean oxygen to keep saturations 88-92%. Infectious workup unremarkable. However would recommend completing 7 day course of Levaquin. An ambulatory pulse ox was performed 03/04 w/ desaturations in the 70s on 6 L of oxygen supplementation. He was placed on high-dose steroids over the weekend. A repeat ambulatory pulse ox on 03/08 showed improvement in desaturations, however still 82% on 6 L. CTA of the chest ruled out PE. Patient can follow-up in the pulmonary clinic in 2 weeks with [employer], importance of follow-up stressed to the patient. He can be discharged today if can maintain appropriate saturations on 6 L or less, even on ambulation. 2. Elevated cardiac enzymes Likely secondary to demand ischemia. He does not have any chest pain. Cardiology following, plans for outpatient stress test. His echocardiogram did show mild eccentric LVH, normal LV systolic function, estimated EF of 60%, and stage I diastolic dysfunction. RVSP was estimated at 38 mmHg. 3. Suspected COPD/questionable interstitial lung disease Possible exacerbation but may be more related to CHF or interstitial disease. Significant smoking history, recently quit in December 2017. CT showing extensive, severe fibrotic changes, possibly pulmonary edema or infiltrates. 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 Immunology workup pending. No prior inhaler therapy other than as needed albuterol. Concern for IPF. Patient would benefit from formal pulmonary function tests and a pulmonary stress test as an outpatient to quantify his lung function and assess for ongoing supplemental oxygen needs, once his acute condition improves. 4. Tobacco abuse in remission/Past drug history/risky behaviors/MRSA infection 2006/elevated LFTs Complicates care, management, recovery, and prognosis. Significant smoking history, quit cold turkey December 2017. Encouraged ongoing smoking cessation. No need for nicotine replacement therapy at this time. Hepatitis panel negative. Thank you for the opportunity to participate in this patient's care, please do not hesitate contact us with any further questions or concerns. This note was generated with Sel[employer] software. It may contain incorrect words, spelling, and punctuation that were not noted in checking the note before signing.
[2018-03-08] MEDS: Calcium Carbonate 500 MG Tablet PO (13:01)
--- NOTE | 2018-03-08 14:49 | PCM.DC ---
- Discharge Diagnoses Current Active Problems: Current Active and Chronic Problems Transaminitis (Acute) CAP (community acquired pneumonia) (Acute) COPD exacerbation (Acute) Elevated troponin (Acute) You will use the following diet at home:: No restrictions Discharge Activity: - - Minimal activity, ambulation. Call your doctor if you observe: Shortness of breath, Dizziness, Fainting spells, Chest pain, - - Increased shortness of breath. Additional Instructions: Titrate home oxygen to maintain O2 at or above 90%. Obtain pulse oximeter as soon as possible as we discussed to monitor oxygen levels. Allergies/Adverse Reactions: Allergies Sulfa (Sulfonamide Antibiotics) Allergy (Verified 03/01/18 00:31) Unknown Medications to take at Discharge Bupropion HCl [Wellbutrin Xl] 150 mg PO DAILY 03/01/18 Fluoxetine [Prozac] 20 mg PO BID 03/01/18 Gabapentin [Neurontin] 300 mg PO BID 03/01/18 Multivit-Min/FA/Vit K/Lycopene [One-A-Day Men's 50 Plus Tablet] 1 tab PO DAILY 03/01/18 Saw [place] 500 mg PO BID 03/01/18 ALPRAZolam [Xanax] 0.5 mg PO BID PRN 03/02/18 Zolpidem Tartrate [Ambien] 5 mg PO QHS PRN PRN 03/02/18 Albuterol Aerosols [Ventolin Aerosols] 2.5 mg INHALATION Q2H PRN PRN #120 vial.neb. 03/05/18 Aspirin E.C. [Ecotrin] 81 mg PO DAILY@0800 #30 tab 03/05/18 Atorvastatin Calcium [Lipitor] 40 mg PO QHS #30 tab 03/05/18 Carvedilol [Coreg (Beta Cassius)] 3.125 mg PO BID #60 tab 03/05/18 Ipratropium/Albuterol Sulfate [Duoneb] 3 ml INHALATION Q4H.RT #120 ampul.neb 03/05/18 Levofloxacin [Levaquin] 750 mg PO DAILY #1 tab 03/08/18 Prednisone 60 mg PO DAILY #21 tab 03/08/18 The following prescriptions were given: Albuterol Aerosols [Ventolin Aerosols] 2.5 mg INHALATION Q2H PRN PRN #120 vial.neb. PRN Reason: Shortness Of Breath Ipratropium/Albuterol Sulfate [Duoneb] 3 ml INHALATION Q4H.RT #120 ampul.neb Aspirin E.C. [Ecotrin] 81 mg PO DAILY@0800 #30 tab Atorvastatin Calcium [Lipitor] 40 mg PO QHS #30 tab Levofloxacin [Levaquin] 750 mg PO DAILY #1 tab Prednisone 60 mg PO DAILY #21 tab Carvedilol [Coreg (Beta Cassius)] 3.125 mg PO BID #60 tab Primary Care Physician: Ivet Henderson DO [Primary Care Provider] - Please follow up with your Primary Care Physician in: 1 Week Please Follow Up With: Aramis Benitez MD When: 03/10/2018 Please Follow Up With: Beto Frank MD When: 2-4 Weeks Proposed Discharge Date: 03/08/18
--- NOTE | 2018-03-08 14:53 | DCINST_ITS ---
- Discharge Diagnoses Current Active Problems: Current Active and Chronic Problems Transaminitis (Acute) CAP (community acquired pneumonia) (Acute) COPD exacerbation (Acute) Elevated troponin (Acute) You will use the following diet at home:: No restrictions Discharge Activity: - - Minimal activity, ambulation. Call your doctor if you observe: Shortness of breath, Dizziness, Fainting spells , Chest pain, - - Increased shortness of breath. Additional Instructions: Titrate home oxygen to maintain O2 at or above 90%. Obtain pulse oximeter as soon as possible as we discussed to monitor oxygen levels. Allergies/Adverse Reactions: Allergies Sulfa (Sulfonamide Antibiotics) Allergy (Verified 03/01/18 00:31) Unknown Medications to take at Discharge Bupropion HCl [Wellbutrin Xl] 150 mg PO DAILY 03/01/18 Fluoxetine [Prozac] 20 mg PO BID 03/01/18 Gabapentin [Neurontin] 300 mg PO BID 03/01/18 Multivit-Min/FA/Vit K/Lycopene [One-A-Day Men's 50 Plus Tablet] 1 tab PO DAILY 03/01/18 Saw [place] 500 mg PO BID 03/01/18 ALPRAZolam [Xanax] 0.5 mg PO BID PRN 03/02/18 Zolpidem Tartrate [Ambien] 5 mg PO QHS PRN PRN 03/02/18 Albuterol Aerosols [Ventolin Aerosols] 2.5 mg INHALATION Q2H PRN PRN #120 vial.neb. 03/05/18 Aspirin E.C. [Ecotrin] 81 mg PO DAILY@0800 #30 tab 03/05/18 Atorvastatin Calcium [Lipitor] 40 mg PO QHS #30 tab 03/05/18 Carvedilol [Coreg (Beta Cassius)] 3.125 mg PO BID #60 tab 03/05/18 Ipratropium/Albuterol Sulfate [Duoneb] 3 ml INHALATION Q4H.RT #120 ampul.neb Levofloxacin [Levaquin] 750 mg PO DAILY #1 tab 03/08/18 Prednisone 60 mg PO DAILY #21 tab 03/08/18 The following prescriptions were given: Albuterol Aerosols [Ventolin Aerosols] 2.5 mg INHALATION Q2H PRN PRN #120 vial.neb. PRN Reason: Shortness Of Breath Ipratropium/Albuterol Sulfate [Duoneb] 3 ml INHALATION Q4H.RT #120 ampul.neb Aspirin E.C. [Ecotrin] 81 mg PO DAILY@0800 #30 tab Atorvastatin Calcium [Lipitor] 40 mg PO QHS #30 tab Levofloxacin [Levaquin] 750 mg PO DAILY #1 tab Prednisone 60 mg PO DAILY #21 tab Carvedilol [Coreg (Beta Cassius)] 3.125 mg PO BID #60 tab Primary Care Physician: Ivet Henderson DO [Primary Care Provider] - Please follow up with your Primary Care Physician in: 1 Week Please Follow Up With: Aramis Benitez MD When: 03/10/2018 Please Follow Up With: Beto Frank MD When: 2-4 Weeks Proposed Discharge Date: 03/08/18
--- NOTE | 2018-03-08 14:53 | PCM.DC.SUM ---
<Porsha Terrell - Last Filed: 03/08/18 15:05> Discharge Date and Diagnosis Date of Admission: 03/01/18 Date of Discharge: 03/08/18 - Primary Discharge Diagnosis Active and Suspected Problems 1. Acute hypoxic respiratory failure secondary to acute on suspected chronic COPD exacerbation 2. Acute diastolic CHF 3. Elevated troponin, suspect demand ischemia secondary to #1 4. Hypokalemia 5. Mild elevated LFTs - Secondary Discharge Diagnosis Depression Anxiety History of polysubstance abuse and tobacco dependence Hospital Course and Treatment Imaging Results: Diagnostic Data Liver Ultrasound 03/01/18 12:57 IMPRESSION: Normal right upper quadrant ultrasound examination. Electronically Signed: Kwasi Corey MD at 20:28 EDT , Service support , Chest X-Ray 03/02/18 05:59 IMPRESSION: Stable examination. Electronically Signed: Efrain Urbano MD at 11:11 EDT Tel [phone], Service support , Chest CT 03/02/18 11:46 IMPRESSION: Severe end-stage fibrotic COPD. Additionally cannot exclude patchy areas of pulmonary edema or even active infiltrates especially in the lower lobes. Electronically Signed: Kwasi Corey MD at 16:49 EDT , Service support , Chest CTA 03/05/18 11:35 IMPRESSION: There is no evidence of pulmonary embolism. Once again, degenerative diffuse increased interstitial markings in both lungs with areas of confluence in keeping with chronic interstitial fibrosis. The previously seen multifocal areas of groundglass appearance improved. Residual changes persist. Electronically Signed: Efrain Urbano MD at 13:41 EDT Tel [phone], Service support , Dr. Frank- Cardiology Dr. Ford/Dr. Benitez- Pulmonary Operations: None Procedures: 2-D Echocardiogram Summary of Care Provided: Patient is a 58-year-old male admitted 03/01/2018 due to worsening shortness of breath. He has a past medical history of anxiety, depression, polysubstance abuse and history of tobacco dependence with cessation and December 2017. 1. Acute hypoxic respiratory failure secondary to acute on suspected chronic COPD exacerbation- Continue oral Levaquin for 1 more days, stop date 03/09/2018. Patient will be discharged on prednisone 60 mg daily and until further adjusted per pulmonary medicine as outpatient. He has an appointment scheduled this 03/10/2018. CT shows extensive severe fibrotic changes. CTA of chest showed no evidence of pulmonary embolism. Patient continues to require supplemental oxygen. He will be discharged on supplemental oxygen and was instructed to maintain O2 saturations greater than 90%. He is ambulatory in the home. Continue close follow-up with pulmonary medicine as outpatient. 2. Acute diastolic CHF-echocardiogram shows an EF of 60%, stage I diastolic dysfunction, pulmonary artery systolic pressure 38 mmHg. Patient received IV Lasix which has since been discontinued. F/u with cardiology as outpatient. Follow-up with Dr. Frank in 2-4 weeks or when respiratory status has improved to discuss further outpatient testing. 3. Elevated troponin-suspected secondary to demand ischemia secondary to #1. Patient will follow up with cardiology as outpatient with possible stress test in the future. Follow-up as noted above. 4. Hypokalemia-resolved. 5. Mildly elevated LFTs-liver ultrasound unremarkable. Hepatitis panel unremarkable. Continue outpatient follow-up. 6. Anxiety, depression-continue home Wellbutrin, Prozac regimen. 7. History of polysubstance abuse and tobacco dependence-tobacco cessation December 2017. Encouraged continued cessation. Urine drug screen positive for cannabis. Encourage cessation of cannabis as well. General: Alert, Oriented x3, Cooperative HEENT: Atraumatic, PERRLA, EOMI, Normocephalic Neck: Supple, No JVD, Negative Carotid Bruits Lungs: Clear to auscultation, Diminished Cardiovascular: Regular rate, Regular Rhythm, Normal S1, Normal S2, No murmurs Abdomen: Bowel Sounds Present, Soft, Non Tender, Non-Distended Extremities: No clubbing, No cyanosis, No edema, Capillary Refill Less than 3 Seconds Skin: No rashes, No breakdown Musculoskeletal: No Tenderness to Palpation of Joints or Extremities Neurological: Cranial nerves II-XII grossly intact, Neuro grossly intact Psych/Mental Status: Normal Affect, Appropriate Patient seen exam prior to discharge. Physical assessment as noted above. Patient stable for discharge home with close follow-up with pulmonary medicine, other follow-up recommendations as noted above. This patient was seen by FRANCISCO JAVIER Mayberry under the supervision of Dr. De La O. Discharge Diet: No Restrictions Discharge Activity: - - Minimal activity, ambulation. Call your doctor if you observe: Shortness of breath, Dizziness, Fainting spells, Chest pain, - - Increased shortness of breath. Home Medications: Medications to take at Discharge Bupropion HCl [Wellbutrin Xl] 150 mg PO DAILY 03/01/18 Fluoxetine [Prozac] 20 mg PO BID 03/01/18 Gabapentin [Neurontin] 300 mg PO BID 03/01/18 Multivit-Min/FA/Vit K/Lycopene [One-A-Day Men's 50 Plus Tablet] 1 tab PO DAILY 03/01/18 Saw [place] 500 mg PO BID 03/01/18 ALPRAZolam [Xanax] 0.5 mg PO BID PRN 03/02/18 Zolpidem Tartrate [Ambien] 5 mg PO QHS PRN PRN 03/02/18 Albuterol Aerosols [Ventolin Aerosols] 2.5 mg INHALATION Q2H PRN PRN #120 vial.neb. 03/05/18 Aspirin E.C. [Ecotrin] 81 mg PO DAILY@0800 #30 tab 03/05/18 Atorvastatin Calcium [Lipitor] 40 mg PO QHS #30 tab 03/05/18 Carvedilol [Coreg (Beta Cassius)] 3.125 mg PO BID #60 tab 03/05/18 Ipratropium/Albuterol Sulfate [Duoneb] 3 ml INHALATION Q4H.RT #120 ampul.neb 03/05/18 Levofloxacin [Levaquin] 750 mg PO DAILY #1 tab 03/08/18 Prednisone 60 mg PO DAILY #21 tab 03/08/18 Following Prescrptions Were Given to Patient: Albuterol Aerosols [Ventolin Aerosols] 2.5 mg INHALATION Q2H PRN PRN #120 vial.neb. PRN Reason: Shortness Of Breath Ipratropium/Albuterol Sulfate [Duoneb] 3 ml INHALATION Q4H.RT #120 ampul.neb Aspirin E.C. [Ecotrin] 81 mg PO DAILY@0800 #30 tab Atorvastatin Calcium [Lipitor] 40 mg PO QHS #30 tab Levofloxacin [Levaquin] 750 mg PO DAILY #1 tab Prednisone 60 mg PO DAILY #21 tab Carvedilol [Coreg (Beta Cassius)] 3.125 mg PO BID #60 tab Primary Care Physician: Ivet Henderson DO [Primary Care Provider] - Please follow up with your Primary Care Physician in: 1 Week Please Follow Up With: Aramis Benitez MD When: 03/10/2018 Please Follow Up With: Beto Frank MD When: 2-4 Weeks Disposition: Home Minutes spent on discharge:: 35 Patient Condition:: Stable Medical Necessity - Tobacco Use Smoking Status: Former smoker Tobacco Use: Cigarettes Meaningful Use Info Meaningful Use Diagnoses (Choose all that apply): CHF - CHF EVER/ARB ordered at discharge?: No Reason EVER/ARB not ordered?: Allergy Documented LVEF (%): 60 - ever/arb not indicated <Bhupendra De La O - Last Filed: 03/08/18 15:36> Hospital Course and Treatment Operations: None Procedures: 2-D Echocardiogram Summary of Care Provided: Patient seen and examined independently. Data reviewed. I agree with the above note by the nurse practitioner. The patient is a 58 year old M presents with acute hypoxic respiratory failure. Patient's pulse ox was reassured in the 60s. Patient was admitted and monitored started on high-dose steroids. CAT scan showed chronic pulmonary changes. Is concerned the patient may have some underlying chronic lung disease has not been fully elucidated. Is also felt that patient may have been living hypoxic for quite some time but reached a tipping point with his pulse ox being 60s where he became very symptomatic. Patient be discharged with oxygen as patient does have respiratory failure requiring oxygen continuously at this point time. Patient will follow-up pulmonology for further assessment and management as outpatient. [] Discharge Diet: No Restrictions Discharge Activity: - Call your doctor if you observe: Shortness of breath, Dizziness, Fainting spells, Chest pain, - Disposition: Home Minutes spent on discharge:: 35 Meaningful Use Info Meaningful Use Diagnoses (Choose all that apply): CHF - CHF EVER/ARB ordered at discharge?: No Reason EVER/ARB not ordered?: Allergy Documented LVEF (%): 60 Code Visit Inpatient E&M: 28259 Disch Hosp
--- NOTE | 2018-03-08 15:03 | DS.PCM_ITS ---
<Porsha Terrell - Last Filed: 03/08/18 15:05> Discharge Date and Diagnosis Date of Admission: 03/01/18 Date of Discharge: 03/08/18 - Primary Discharge Diagnosis Active and Suspected Problems 1. Acute hypoxic respiratory failure secondary to acute on suspected chronic COPD exacerbation 2. Acute diastolic CHF 3. Elevated troponin, suspect demand ischemia secondary to #1 4. Hypokalemia 5. Mild elevated LFTs - Secondary Discharge Diagnosis Depression Anxiety History of polysubstance abuse and tobacco dependence Hospital Course and Treatment Imaging Results: Diagnostic Data Liver Ultrasound 03/01/18 12:57 IMPRESSION: Normal right upper quadrant ultrasound examination. Electronically Signed: Kwasi Corey MD at 20:28 EDT , Service support , Chest X-Ray 03/02/18 05:59 IMPRESSION: Stable examination. Electronically Signed: Efrain Urbano MD at 11:11 EDT Tel [phone], Service support , Chest CT 03/02/18 11:46 IMPRESSION: Severe end-stage fibrotic COPD. Additionally cannot exclude patchy areas of pulmonary edema or even active infiltrates especially in the lower lobes. Electronically Signed: Kwasi Corey MD at 16:49 EDT , Service support , Chest CTA 03/05/18 11:35 IMPRESSION: There is no evidence of pulmonary embolism. Once again, degenerative diffuse increased interstitial markings in both lungs with areas of confluence in keeping with chronic interstitial fibrosis. The previously seen multifocal areas of groundglass appearance improved. Residual changes persist. Electronically Signed: Efrain Urbano MD at 13:41 EDT Tel [phone], Service support , Dr. Frank- Cardiology Dr. Ford/Dr. Benitez- Pulmonary Operations: None Procedures: 2-D Echocardiogram Summary of Care Provided: Patient is a 58-year-old male admitted 03/01/2018 due to worsening shortness of breath. He has a past medical history of anxiety, depression, polysubstance abuse and history of tobacco dependence with cessation and December 2017. 1. Acute hypoxic respiratory failure secondary to acute on suspected chronic COPD exacerbation- Continue oral Levaquin for 1 more days, stop date 03/09/2018. Patient will be discharged on prednisone 60 mg daily and until further adjusted per pulmonary medicine as outpatient. He has an appointment scheduled this 03/10/2018. CT shows extensive severe fibrotic changes. CTA of chest showed no evidence of pulmonary embolism. Patient continues to require supplemental oxygen. He will be discharged on supplemental oxygen and was instructed to maintain O2 saturations greater than 90%. He is ambulatory in the home. Continue close follow-up with pulmonary medicine as outpatient. 2. Acute diastolic CHF-echocardiogram shows an EF of 60%, stage I diastolic dysfunction, pulmonary artery systolic pressure 38 mmHg. Patient received IV Lasix which has since been discontinued. F/u with cardiology as outpatient. Follow-up with Dr. Frank in 2-4 weeks or when respiratory status has improved to discuss further outpatient testing. 3. Elevated troponin-suspected secondary to demand ischemia secondary to #1. Patient will follow up with cardiology as outpatient with possible stress test in the future. Follow-up as noted above. 4. Hypokalemia-resolved. 5. Mildly elevated LFTs-liver ultrasound unremarkable. Hepatitis panel unremarkable. Continue outpatient follow-up. 6. Anxiety, depression-continue home Wellbutrin, Prozac regimen. 7. History of polysubstance abuse and tobacco dependence-tobacco cessation December 2017. Encouraged continued cessation. Urine drug screen positive for cannabis. Encourage cessation of cannabis as well. General: Alert, Oriented x3, Cooperative HEENT: Atraumatic, PERRLA, EOMI, Normocephalic Neck: Supple, No JVD, Negative Carotid Bruits Lungs: Clear to auscultation, Diminished Cardiovascular: Regular rate, Regular Rhythm, Normal S1, Normal S2, No murmurs Abdomen: Bowel Sounds Present, Soft, Non Tender, Non-Distended Extremities: No clubbing, No cyanosis, No edema, Capillary Refill Less than 3 Seconds Skin: No rashes, No breakdown Musculoskeletal: No Tenderness to Palpation of Joints or Extremities Neurological: Cranial nerves II-XII grossly intact, Neuro grossly intact Psych/Mental Status: Normal Affect, Appropriate Patient seen exam prior to discharge. Physical assessment as noted above. Patient stable for discharge home with close follow-up with pulmonary medicine, other follow-up recommendations as noted above. This patient was seen by FRANCISCO JAVIER Mayberry under the supervision of Dr. De La O. Discharge Diet: No Restrictions Discharge Activity: - - Minimal activity, ambulation. Call your doctor if you observe: Shortness of breath, Dizziness, Fainting spells , Chest pain, - - Increased shortness of breath. Home Medications: Medications to take at Discharge Bupropion HCl [Wellbutrin Xl] 150 mg PO DAILY 03/01/18 Fluoxetine [Prozac] 20 mg PO BID 03/01/18 Gabapentin [Neurontin] 300 mg PO BID 03/01/18 Multivit-Min/FA/Vit K/Lycopene [One-A-Day Men's 50 Plus Tablet] 1 tab PO DAILY 03/01/18 Saw [place] 500 mg PO BID 03/01/18 ALPRAZolam [Xanax] 0.5 mg PO BID PRN 03/02/18 Zolpidem Tartrate [Ambien] 5 mg PO QHS PRN PRN 03/02/18 Albuterol Aerosols [Ventolin Aerosols] 2.5 mg INHALATION Q2H PRN PRN #120 vial.neb. 03/05/18 Aspirin E.C. [Ecotrin] 81 mg PO DAILY@0800 #30 tab 03/05/18 Atorvastatin Calcium [Lipitor] 40 mg PO QHS #30 tab 03/05/18 Carvedilol [Coreg (Beta Cassius)] 3.125 mg PO BID #60 tab 03/05/18 Ipratropium/Albuterol Sulfate [Duoneb] 3 ml INHALATION Q4H.RT #120 ampul.neb Levofloxacin [Levaquin] 750 mg PO DAILY #1 tab 03/08/18 Prednisone 60 mg PO DAILY #21 tab 03/08/18 Following Prescrptions Were Given to Patient: Albuterol Aerosols [Ventolin Aerosols] 2.5 mg INHALATION Q2H PRN PRN #120 vial.neb. PRN Reason: Shortness Of Breath Ipratropium/Albuterol Sulfate [Duoneb] 3 ml INHALATION Q4H.RT #120 ampul.neb Aspirin E.C. [Ecotrin] 81 mg PO DAILY@0800 #30 tab Atorvastatin Calcium [Lipitor] 40 mg PO QHS #30 tab Levofloxacin [Levaquin] 750 mg PO DAILY #1 tab Prednisone 60 mg PO DAILY #21 tab Carvedilol [Coreg (Beta Cassius)] 3.125 mg PO BID #60 tab Primary Care Physician: Ivet Henderson DO [Primary Care Provider] - Please follow up with your Primary Care Physician in: 1 Week Please Follow Up With: Aramis Benitez MD When: 03/10/2018 Please Follow Up With: Beto Frank MD When: 2-4 Weeks Disposition: Home Minutes spent on discharge:: 35 Patient Condition:: Stable Medical Necessity - Tobacco Use Smoking Status: Former smoker Tobacco Use: Cigarettes Meaningful Use Info Meaningful Use Diagnoses (Choose all that apply): CHF - CHF EVER/ARB ordered at discharge?: No Reason EVER/ARB not ordered?: Allergy Documented LVEF (%): 60 - ever/arb not indicated <Bhupendra De La O - Last Filed: 03/08/18 15:36> Hospital Course and Treatment Operations: None Procedures: 2-D Echocardiogram Summary of Care Provided: Patient seen and examined independently. Data reviewed. I agree with the above note by the nurse practitioner. The patient is a 58 year old M presents with acute hypoxic respiratory failure. Patient's pulse ox was reassured in the 60s. Patient was admitted and monitored started on high-dose steroids. CAT scan showed chronic pulmonary changes. Is concerned the patient may have some underlying chronic lung disease has not been fully elucidated. Is also felt that patient may have been living hypoxic for quite some time but reached a tipping point with his pulse ox being 60s where he became very symptomatic. Patient be discharged with oxygen as patient does have respiratory failure requiring oxygen continuously at this point time. Patient will follow-up pulmonology for further assessment and management as outpatient. [] Discharge Diet: No Restrictions Discharge Activity: - Call your doctor if you observe: Shortness of breath, Dizziness, Fainting spells , Chest pain, - Disposition: Home Minutes spent on discharge:: 35 Meaningful Use Info Meaningful Use Diagnoses (Choose all that apply): CHF - CHF EVER/ARB ordered at discharge?: No Reason EVER/ARB not ordered?: Allergy Documented LVEF (%): 60 Code Visit Inpatient E&M: 97116 Disch Hosp
== END 2018-03-08 15:56 | disposition home or self-care (01) | DRG 189 ==
LOC: ED 01:14 → PCU 02:05
PROVIDERS: Family Medicine; Internal Medicine Critical Care Medicine; Nurse Practitioner Family; Admitting Provider Internal Medicine; Emergency Provider Emergency Medicine; Family Provider Internal Medicine; PCP Internal Medicine
DX: J96.01 Acute respiratory failure with hypoxia (principal); I50.31 Acute diastolic (congestive) heart failure; J44.1 Chronic obstructive pulmonary disease with (acute) exacerbation; I24.8 Other forms of acute ischemic heart disease; E87.6 Hypokalemia; R79.89 Other specified abnormal findings of blood chemistry; F41.9 Anxiety disorder, unspecified; F32.9 Major depressive disorder, single episode, unspecified; Z87.891 Personal history of nicotine dependence; F19.90 Other psychoactive substance use, unspecified, uncomplicated
CPT/HCPCS: 36415; 71045; 71046; 71250; 71275; 76705; 80048; 80053; 80061; 80076; 80307; 82103; 83036; 83735; 83880; 84484; 85025; 85027; 86038; 86200; 86225; 86235; 86256; 86431; 86704; 86705; 86706; 86708; 86709; 86803; 87040; 87340; 87449; 87633; 87641; 87804; 93005; 93306; 94640; 94667; 94668; 97802; 99285; 99406; J7030; Q9967; A4216; J1940

== ENCOUNTER → 2018-03-30 11:22 | Outpatient (CLI) | payer OTHER, SELFPAY ==
[2018-03-30 11:30] VITALS: PULSE 115; PULSE 128; PULSE 130; O2SAT 72; O2SAT 86; O2SAT 92
--- NOTE | 2018-03-30 11:30 | CPS ---
Patient arrived for test on 3L Nasal Cannula. Pt states he normally wears 3L resting and 6L with activity. Pt placed on room air prior to start of test and SPO2 was 78%. Pt was titrated to 4L while recovering with a pre-test pulse ox of 92%. Upon the 2 minute check pt was cyanotic and requested a break. Dr. Ford was notified of SPO2 of 72% on 6L and 2 minutes and 34 seconds the walk was ended per physician request. Patient took 3 minutes to recover, SPO2 was 93% and HR 117. Patient was returned to waiting area and a volunteer was called to assist pt back to the entrance for him to get his car.
--- NOTE | 2018-03-31 09:40 | PCM.PSN.6M ---
PSN 6 Minute Walk Test - 6 Minute Walk Test 6 Minute Walk Test: 6 Minute Walk Test PSN:6-Minute Walk Test Start: 03/30/18 12:48 Freq: Status: Active Protocol: RESP.6MINW Document 03/30/18 11:30 [facility] [place]Rec[place] 03/30/18 12:54 [facility] [place] [id number][place] 6 Minute Walk Test Date Performed 03/30/18 Time Performed 11:30 Height 5 ft 10 in Weight: 188 lb Weight in Pounds 188.[address]: Eli Rebolledo Assistive device used: None Pre-test Oxygen Flow Rate (L/min) (L/min) 4 Oxygen Delivery Method Nasal Cannula Pulse Ox (%) 92 Pulse Rate (60-100 beats/min) 128 H Dyspnea Jackelyn Scale (0-10) 1 Exertion Jackelyn Scale (6-20) 6 1st minute Oxygen Flow Rate (L/min) (L/min) 4 Oxygen Delivery Method Nasal Cannula Pulse Ox (%) 86 Pulse Rate (60-100 beats/min) 130 H 2nd minute Oxygen Flow Rate (L/min) (L/min) 6 Oxygen Delivery Method Nasal Cannula Pulse Ox (%) 72 Pulse Rate (60-100 beats/min) 130 H Reported Symptoms Cyanotic Increased Work of Breathing Post-test Oxygen Flow Rate (L/min) (L/min) 6 Oxygen Delivery Method Nasal Cannula Pulse Ox (%) 92 Pulse Rate (60-100 beats/min) 115 H Dyspnea Jackelyn Scale (0-10) 9 Exertion Jackelyn Scale (6-20) 18 Reported Symptoms Increased Work of Breathing Full Laps Walked 6 Partial Lap, Number of Tiles Walked 20 Total Distance Walked (ft) 374 03/30/18 11:30 (created 03/30/18 12:51) Cardiopulmonary Services by Kaitlynn Tobin Patient arrived for test on 3L Nasal Cannula. Pt states he normally wears 3L resting and 6L with activity. Pt placed on room air prior to start of test and SPO2 was 78%. Pt was titrated to 4L while recovering with a pre-test pulse ox of 92%. Upon the 2 minute check pt was cyanotic and requested a break. Dr. Ford was notified of SPO2 of 72% on 6L and 2 minutes and 34 seconds the walk was ended per physician request. Patient took 3 minutes to recover, SPO2 was 93% and HR 117. Patient was returned to waiting area and a volunteer was called to assist pt back to the entrance for him to get his car. Initialized on 03/30/18 12:51 - END OF NOTE - Interpretation Interpretation: The patient ambulated 374 feet over the course of 2 minutes and 34 seconds. The testing was ended prematurely due to development of significant exertional hypoxia. Pretesting oxygen saturation on room air was noted to be 78%. The patient required 4 L/min of supplemental oxygen at rest to maintain an oxygen saturation at or above 88%. The patient was unable to proceed with the ambulation portion of the test. On 4 L/min, with exertion, the patient again desaturated to 86% at minute #1. The patient's flow rate was increased to 6 L/min and the test was continued. However, the patient then desaturated to 72% at minute #2, despite being on 6 L/min of continuous flow supplemental oxygen. Therefore, the test was terminated. The patient was notably tachycardic with exertion. This test demonstrates significant exertional hypoxemia with pulmonary limitations to exercise tolerance. - Recommendations Recommendations: 4 L/min of continuous flow supplemental oxygen should be utilized at rest. 6 L/min of continuous flow supplemental oxygen should be utilized with exertion. Close interval follow-up is recommended given the degree of oxygen desaturation noted with exertion during this study.
--- NOTE | 2018-03-31 09:44 | WT_ITS ---
PSN 6 Minute Walk Test - 6 Minute Walk Test 6 Minute Walk Test: 6 Minute Walk Test PSN:6-Minute Walk Test Start: 03/30/18 12: 48 Freq: Status: Active Protocol: RESP.6MINW Document 03/30/18 11:30 [facility] [place]Rec: 03/30/18 12:54 [facility] [place] [id number][place] 6 Minute Walk Test Date Performed 03/30/18 Time Performed 11:30 Height 5 ft 10 in Weight: 188 lb Weight in Pounds 188.[address]: Eli Rebolledo Assistive device used: None Pre-test Oxygen Flow Rate (L/min) (L/min) 4 Oxygen Delivery Method Nasal Cannula Pulse Ox (%) 92 Pulse Rate (60-100 beats/min) 128 H Dyspnea Jackelyn Scale (0-10) 1 Exertion Jackelyn Scale (6-20) 6 1st minute Oxygen Flow Rate (L/min) (L/min) 4 Oxygen Delivery Method Nasal Cannula Pulse Ox (%) 86 Pulse Rate (60-100 beats/min) 130 H 2nd minute Oxygen Flow Rate (L/min) (L/min) 6 Oxygen Delivery Method Nasal Cannula Pulse Ox (%) 72 Pulse Rate (60-100 beats/min) 130 H Reported Symptoms Cyanotic Increased Work of Breathing Post-test Oxygen Flow Rate (L/min) (L/min) 6 Oxygen Delivery Method Nasal Cannula Pulse Ox (%) 92 Pulse Rate (60-100 beats/min) 115 H Dyspnea Jackelyn Scale (0-10) 9 Exertion Jackelyn Scale (6-20) 18 Reported Symptoms Increased Work of Breathing Full Laps Walked 6 Partial Lap, Number of Tiles Walked 20 Total Distance Walked (ft) 374 03/30/18 11:30 (created 03/30/18 12:51) Cardiopulmonary Services by Kaitlynn Tobin Patient arrived for test on 3L Nasal Cannula. Pt states he normally wears 3L resting and 6L with activity. Pt placed on room air prior to start of test and SPO2 was 78%. Pt was titrated to 4L while recovering with a pre-test pulse ox of 92%. Upon the 2 minute check pt was cyanotic and requested a break. Dr. Ford was notified of SPO2 of 72% on 6L and 2 minutes and 34 seconds the walk was ended per physician request. Patient took 3 minutes to recover, SPO2 was 93 % and HR 117. Patient was returned to waiting area and a volunteer was called to assist pt back to the entrance for him to get his car. Initialized on 03/30/18 12:51 - END OF NOTE - Interpretation Interpretation: The patient ambulated 374 feet over the course of 2 minutes and 34 seconds. The testing was ended prematurely due to development of significant exertional hypoxia. Pretesting oxygen saturation on room air was noted to be 78%. The patient required 4 L/min of supplemental oxygen at rest to maintain an oxygen saturation at or above 88%. The patient was unable to proceed with the ambulation portion of the test. On 4 L/min, with exertion, the patient again desaturated to 86% at minute #1. The patient's flow rate was increased to 6 L/ min and the test was continued. However, the patient then desaturated to 72% at minute #2, despite being on 6 L/min of continuous flow supplemental oxygen. Therefore, the test was terminated. The patient was notably tachycardic with exertion. This test demonstrates significant exertional hypoxemia with pulmonary limitations to exercise tolerance. - Recommendations Recommendations: 4 L/min of continuous flow supplemental oxygen should be utilized at rest. 6 L/ min of continuous flow supplemental oxygen should be utilized with exertion. Close interval follow-up is recommended given the degree of oxygen desaturation noted with exertion during this study.
== END ==
PROVIDERS: Family Provider Internal Medicine; PCP Internal Medicine; Visit Provider Nurse Practitioner Acute Care
DX: J44.1 Chronic obstructive pulmonary disease with (acute) exacerbation (principal)
CPT/HCPCS: 94618

== ENCOUNTER → 2018-04-06 07:38 | Outpatient (CLI) | payer OTHER, SELFPAY ==
--- NOTE | 2018-04-06 12:04 | PFTCOMP ---
COMPLETE PULMONARY FUNCTION TEST INTERPRETATION Brief HPI: Patient is a 58 year old male, currently under the care of Eli Rebolledo, who presents to [facility] for complete pulmonary function tests secondary to diagnosis of COPD. Respiratory therapist reports good effort and reproducible results. Interpretation: Forced expiration spirometry shows no large airways obstructive ventilatory defect with an FEV1 of 63% predicted. There is no significant bronchodilator response by ATS criteria. Spirograms are of good quality and plateau normally. The respiratory flow volume loop shows a normal pattern. Lung volumes by body plethysmography show a decreased total lung capacity at 4.03 L, 59% predicted. All other lung volumes are reduced symmetrically. Diffusion capacity by carbon monoxide is decreased at 24% predicted. The airway resistance is normal. No previous pulmonary function tests were available for review. Impression: Moderate restrictive ventilatory defect with a symmetric reduction diffusing capacity consistent with probable interstitial lung disease.
== END ==
PROVIDERS: Family Provider Internal Medicine; PCP Internal Medicine; Visit Provider Nurse Practitioner Acute Care
DX: J44.1 Chronic obstructive pulmonary disease with (acute) exacerbation (principal)
CPT/HCPCS: 94060; 94726; 94729

== ENCOUNTER → 2018-05-26 16:31 | Outpatient (CLI) | payer OTHER, SELFPAY ==
--- NOTE | 2018-05-26 16:33 | CT_ITS ---
STUDY: CT CHEST WITHOUT CONTRAST REASON FOR EXAM: Male, 58 years old. Interstitial lung disease. RADIATION DOSAGE (If Supplied By Facility): CTDIvol = ( 18.06 ) mGy, DLP = ( 656.82 ) mGycm TECHNIQUE: Transaxial imaging was performed without the administration of intravenous contrast material. Multiplanar coronal and sagittal images were reformatted. Individualized dose optimization techniques were used for this CT. COMPARISON: CTA of the chest, March 05, 2018. CT of the chest, March 02, 2018. FINDINGS: There is diffuse fibrotic changes lungs with diffuse honeycombing most marked in the upper lobes and along the subpleural surfaces of the lower lobes. There is no focal mass or infiltrate. There is no demonstrated pleural abnormality. Normal heart and pericardium. There are multiple mediastinal lymph nodes. 0 predominantly in the paratracheal, and AP window locations. These appear unchanged. Normal hilar regions. Normal unenhanced pulmonary arteries. Normal aorta arch and descending thoracic aorta. Normal osseous structures. There is no demonstrated abnormality of the visualized upper abdomen. CT/Chest without Contrast IMPRESSION: 1. Diffuse pulmonary fibrosis without evidence of acute infiltrate or mass. 2. Stable mediastinal lymphadenopathy. Electronically Signed: Nicola Corrales DO at 16:57 EDT Tel [phone], Service support ,
== END ==
PROVIDERS: Family Provider Internal Medicine; PCP Internal Medicine; Visit Provider Internal Medicine Critical Care Medicine
DX: J98.4 Other disorders of lung (principal)
CPT/HCPCS: 71250

== ENCOUNTER → 2018-06-29 08:30 | Outpatient (CLI) | payer SELFPAY ==
[2018-06-29 10:19] LABS: Rheumatoid Factor < 10.0 IU/mL (<15)
[2018-07-01 03:06] LABS: Cytoplasmic Ab (C-ANCA) <1:20 titer (Neg:<1:20)
[2018-07-01 13:34] LABS: CCP IgG Antibodies 5 units (0-19); Perinuclear Ab (P-ANCA) <1:20 titer (Neg:<1:20)
[2018-07-01 14:44] LABS: ANTINUCLEAR ANTIBODIES DIRECT Negative (Negative)
== END ==
PROVIDERS: Family Provider Internal Medicine; PCP Internal Medicine; Referring Provider Nurse Practitioner Acute Care; Visit Provider Nurse Practitioner Acute Care
DX: J84.10 Pulmonary fibrosis, unspecified (principal)
CPT/HCPCS: 86038; 86200; 86256; 86431

== ENCOUNTER → 2018-12-22 | Outpatient (CLI) | payer MEDICAID, SELFPAY ==
[2018-11-02 11:01] VITALS: BMI 27.9
--- NOTE | 2018-12-23 11:14 | PFT ---
INTRODUCTION: The patient is a 58-year-old male that presents for pulmonary function studies secondary to a diagnosis of lung disorder. Respiratory therapy reports good patient effort. Bronchodilators were used during testing. INTERPRETATION: Forced expiration spirometry demonstrates no evidence of a large airways obstructive ventilatory defect. There was no significant response to aerosolized bronchodilators. Spirograms are of good quality and plateau normally. Body plethysmography was performed and reveals lung volumes to be within normal limits. Diffusing capacity by single breath CO is severely reduced at 33% of predicted. When compared to pulmonary function studies completed in March 2018, there has been a significant improvement in the patient's TLC and DLCO. IMPRESSION: These pulmonary function studies demonstrate the presence of an isolated severe reduction in diffusing capacity. There has been significant improvement since March 2018 in the patient's TLC and DLCO.
== END | disposition home or self-care (01) ==
LOC: PSN 12:39
PROVIDERS: Referring Provider Internal Medicine Critical Care Medicine; Visit Provider Internal Medicine Critical Care Medicine
DX: J98.4 Other disorders of lung (principal)
CPT/HCPCS: 94060; 94726; 94729

== ENCOUNTER → 2019-01-10 | Outpatient (CLI) | payer OTHER, SELFPAY ==
[2019-01-10 10:35] VITALS: BMI 27.9
[2019-01-10 11:55] LABS: Hematocrit 44.6 % (40-54); Hemoglobin 15.8 g/dl (13.0-16.5); Mean Corp Hgb Conc 35.4 g/gl (32-36); Mean Corpuscular Hgb 31.3 pg (27.0-32.0); Mean Corpuscular Volume 88.5 fL (80-94); Mean Platelet Vol. 11.5 fl (6.2-12.0); Platelet Count 207 K/mm3 (150-450); RBC Distribution Width CV 13.4 % (11.6-14.6); RBC Distribution Width SD 43.5 fl (35.1-43.9); Red Blood Count 5.04 M/mm3 (4.6-6.2); White Blood Count 9.2 K/mm3 (4.4-11.0)
[2019-01-10 11:56] LABS: Scan Indicated on CBC? Y/N NO
== END | disposition home or self-care (01) ==
PROVIDERS: Referring Provider Internal Medicine Critical Care Medicine; Visit Provider Internal Medicine Critical Care Medicine
DX: J84.10 Pulmonary fibrosis, unspecified (principal); J96.11 Chronic respiratory failure with hypoxia
CPT/HCPCS: 36415; 85027

== ENCOUNTER → 2019-01-24 10:32 | Outpatient (CLI) | payer OTHER, SELFPAY ==
[2019-01-10 10:35] VITALS: BMI 27.9
[2019-01-24 11:49] VITALS: PULSE 112; PULSE 118; PULSE 120; PULSE 130; PULSE 137; PULSE 140; PULSE 92; PULSE 98; O2SAT 78; O2SAT 82; O2SAT 84; O2SAT 86; O2SAT 90; O2SAT 91; O2SAT 95; O2SAT 96
--- NOTE | 2019-01-24 11:52 | CPS ---
Patient arrived on 3 lpm O2, states that he wears 3-6 lpm O2 at home. SpO2 86% on Room Air. Placed patient back on 3 lpm O2 to start the test. Patient walked 300 ft in the 1st minute, SpO2 78%. Turned O2 up to 5 lpm and patient rested for a brief period of time, SpO2 96%. Patient stated that he was only slightly SOB when I stopped him. At the 3rd minute SpO2 82% on 5 lpm, patient walked 830 ft by this point. Turned O2 to 6 lpm for the rest of testing.
--- NOTE | 2019-01-24 12:48 | PCM.PSN.6M ---
PSN 6 Minute Walk Test - 6 Minute Walk Test 6 Minute Walk Test: 6 Minute Walk Test PSN:6-Minute Walk Test Start: 01/24/19 11:48 Freq: Status: Active Protocol: RESP.6MINW Document 01/24/19 11:49 AMOS (Rec: 01/24/19 12:03 AMOS [id number]) 6 Minute Walk Test Date Performed 01/24/19 Time Performed 11:00 Height 5 ft 10 in Weight: 88.451 kg Weight in Pounds 195.[address]: Robel Ford Assistive device used: None Pre-test Oxygen Flow Rate (L/min) (L/min) 3 Oxygen Delivery Method Nasal Cannula Pulse Ox (%) 95 Pulse Rate (60-100 beats/min) 92 Dyspnea Jackelyn Scale (0-10) 0 Exertion Jackelyn Scale (6-20) 6 1st minute Oxygen Flow Rate (L/min) (L/min) 3 Oxygen Delivery Method Nasal Cannula Pulse Ox (%) 78 Pulse Rate (60-100 beats/min) 137 H 2nd minute Oxygen Flow Rate (L/min) (L/min) 5 Oxygen Delivery Method Nasal Cannula Pulse Ox (%) 90 Pulse Rate (60-100 beats/min) 118 H 3rd minute Oxygen Flow Rate (L/min) (L/min) 5 Oxygen Delivery Method Nasal Cannula Pulse Ox (%) 82 Pulse Rate (60-100 beats/min) 140 H 4th minute Oxygen Flow Rate (L/min) (L/min) 6 Oxygen Delivery Method Nasal Cannula Pulse Ox (%) 91 Pulse Rate (60-100 beats/min) 112 H 5th minute Oxygen Flow Rate (L/min) (L/min) 6 Oxygen Delivery Method Nasal Cannula Pulse Ox (%) 86 Pulse Rate (60-100 beats/min) 120 H 6th minute Oxygen Flow Rate (L/min) (L/min) 6 Oxygen Delivery Method Nasal Cannula Pulse Ox (%) 84 Pulse Rate (60-100 beats/min) 130 H Dyspnea Jackelyn Scale (0-10) 3 Exertion Jackelyn Scale (6-20) 12 Post-test Oxygen Flow Rate (L/min) (L/min) 3 Oxygen Delivery Method Nasal Cannula Pulse Ox (%) 96 Pulse Rate (60-100 beats/min) 98 Full Laps Walked 24 Partial Lap, Number of Tiles Walked 32 Total Distance Walked (ft) 1448 01/24/19 11:52 Cardiopulmonary Services by Parvin Segundo Patient arrived on 3 lpm O2, states that he wears 3-6 lpm O2 at home. SpO2 86% on Room Air. Placed patient back on 3 lpm O2 to start the test. Patient walked 300 ft in the 1st minute, SpO2 78%. Turned O2 up to 5 lpm and patient rested for a brief period of time, SpO2 96%. Patient stated that he was only slightly SOB when I stopped him. At the 3rd minute SpO2 82% on 5 lpm, patient walked 830 ft by this point. Turned O2 to 6 lpm for the rest of testing. Initialized on 01/24/19 11:52 - END OF NOTE - Interpretation Interpretation: The patient was noted to be 86% on room air and was titrated to 3 L nasal cannula with a saturation of 95%. The patient then was noted to desaturate precipitously with ambulation despite up to 6 L/min of nasal cannula oxygen. Patient did have significant tachycardia with a peak heart rate of 140 bpm. In total, patient was able to ambulate 1448 feet over the course of the study. These findings are consistent with a respiratory limitation exercise tolerance. - Recommendations Recommendations: Patient requires 3 L/min at rest, but at least 6 L/min is needed with activity. Patient may be a good candidate for an assistive device such as an electronic wheelchair to limit exercise demands.
== END ==
PROVIDERS: Referring Provider Internal Medicine Critical Care Medicine; Visit Provider Internal Medicine Critical Care Medicine
DX: J96.11 Chronic respiratory failure with hypoxia (principal)
CPT/HCPCS: 94618

== ENCOUNTER → 2019-05-23 | Outpatient (CLI) | payer MEDICAID, SELFPAY ==
[2019-05-03 10:26] VITALS: BMI 28.7
--- NOTE | 2019-05-23 13:42 | CT_ITS ---
STUDY: CT CHEST WITHOUT CONTRAST REASON FOR EXAM: Male, 59 years old. Interstitial lung disease. Occupational exposure. Shortness of breath. On oxygen for inhalation. RADIATION DOSAGE (If Supplied By Facility): CTDIvol = ( 17.72 ) mGy, DLP = ( 657.65 ) mGycm TECHNIQUE: Transaxial imaging was performed without the administration of intravenous contrast material in the prone positioning. Coronal and sagittal reconstructions were performed. Individualized dose optimization techniques were used for this CT. COMPARISON: 05/26/2018. FINDINGS: The lungs are abnormal. There is peripheral reticulation, peripheral honeycombing with minimal traction bronchiectasis but no basal predominance. Instead, there is predominance in the upper lobes more than the lung bases. Additionally, there is no subpleural sparing. The prone positioning did not show air trapping but this may be artifactual since this was acquired in the inspiratory phase rather than expiratory phase. There is no mosaic perfusion of both lungs. There are small centrilobular cysts in both upper lobes more than the right middle lobe and lower lobes. There is no pleural fluid. Normal heart and pericardium. Normal mediastinum. Normal hilar regions. Normal unenhanced pulmonary arteries. Normal aorta arch and descending thoracic aorta. Normal osseous structures. There is no demonstrated abnormality of the visualized upper abdomen. OPINION: 1. Abnormal peripheral reticulation and peripheral honeycombing with minimal traction bronchiectasis but predominantly in the upper lobes more than the lower lobes. There are also nonspecific findings of centrilobular cysts more in the upper lobes and the lower lobes. The zonal distribution is atypical for UIP. Clinical correlation and lung biopsy may be helpful for further evaluation. 2. No significant interval change when compared to 05/26/2018. Electronically Signed: Ge Fox MD at 12:31 EDT , Service support , CT/Chest without Contrast
== END | disposition home or self-care (01) ==
LOC: CT 13:41
PROVIDERS: Family Provider Internal Medicine; PCP Internal Medicine; Referring Provider Internal Medicine Critical Care Medicine; Visit Provider Internal Medicine Critical Care Medicine
DX: J84.10 Pulmonary fibrosis, unspecified (principal); J98.4 Other disorders of lung
CPT/HCPCS: 71250

== ENCOUNTER → 2021-03-11 13:12 | Emergency (ER) | payer MEDICARE, SELFPAY ==
[2019-08-08 12:56] VITALS: BMI 29.0
--- NOTE | 2021-03-11 13:19 | EDS_ITS ---
HPI History of Present Illness Chief Complaint: CPR Informant: patient Narrative Narrative: 61-year-old male brought in by EMS as a cardiac arrest. Apparently home oxygen delivery was being made and witnessed him collapse. CPR was in progress for 10 minutes. Upon EMS arrival he was in PEA. They would intermittently get an organized rhythm after epinephrine and CPR. Come into the emergency room CPR was started again. No significant known history is accompa nying the patient. PFSH PFSH unable to obtain unable to obtain unable to obtain Social History (Updated 03/11/21 @ 13:[address] Lenin Machado, DO) other: Unable to obtain ROS ROS ED Review of Systems ROS Unobtainable: due to mental status EXAM Physical Exam Const Positive well nourished and well developed General Appearance ED: well developed HEENT HEENT Narrative: Pupils are fixed at 3 mm bilaterally. No corneal reflex. There is an eye gel in place. Neck supple and no JVD Resp Resp Narrative: Patient has bagged respirations Cardio Rate: other Other Details: Patient arrives in PEA with no palpable pulse or cardiac activity on ultrasound GI GI Narrative: Well-healed surgical scars. No distention. Extremity Extremity Narrative: Patient has significant clubbing of fingers and toes. Lower extremity is pale. The upper extremities are grayish-blue. There is a IO in place. Neuro Neuro Narrative: Patient is unresponsive. MDM MDM MDM Narrative Medical decision making narrative: CPR was continued and the patient was transferred to the bed. He is placed on the monitor. At rhythm check the patient was in PEA with no activity noted on ultrasound and no palpable pulse. He quickly went into asystole. At this point the patient has been receiving CPR for approximately 30 minutes. He was pronounced . Discharge Plan Triage Chief Complaint: CPR ED Provider: Lenin Machado Dx/Rx/DC Orders Clinical Impression: Cardiac arrest Primary Care Provider: NOT,DEFINED Referrals: NOT,DEFINED [Primary Care Provider] - Disposition Disposition:
--- NOTE | 2021-03-11 14:56 | CM.ED ---
SW Note SW met with patient's ex , patient's ex brother in law and patient's caregiver after they were told of patient's . SW and Environmental Health Inspector provided emotional support to patient's family. The family stated that caregiver, Francesca, was in charge of the estate and executor of the will. SW and Environmental Health Inspector accompanied them when they went to see patient. Family reports they want [facility] and this was relayed to gear design engineer Stacy. SW and Environmental Health Inspector continued to provide support to patient's family. Family left together to return back to patient's home to make arrangements. SW remains available if any further needs arise. Bouchra KOWALSKI
--- NOTE | 2021-03-11 15:05 | CHAPLAIN ---
Type of Pastoral Visit ___ Initial Visit ___ Follow-up Visit ___ On-call Visit ___ General Patient Visit ___ Spiritual Assessment ___ Family Conference ___ Bereavement ___ Rapid Response _x__ Code Blue ___ Other (describe below) Pastoral Care Referral From ___ Patient ___ Family ___ Nurse ___ Physician ___ Cigar Head Holer ___ Laboratory Monitor _x__ Other (describe below) Sacrament/Intervention _x__ Active listening ___ Anointing ___ Confucianist _x__ Bereavement ___ Communion _x__ Zarina exploration ___ _x__ Life review _x__ Prayer ___ Reconciliation ___ Sacrament of Sick _x__ Supportive presence ___ Wedding ___ Other (describe below) Pastoral Comments responded to Code Blue in ED; patient arrived, was treated, but he ; family members and caregiver came to ED; worked together with SW to provide support and care of family members; prayer was given after meeting with who pronounced pt; escorted family into room to view body; facilitation of life review along with SW; escorted family out of ED at appropriate time
--- NOTE | 2021-03-11 17:49 | ED.RN ---
PT TO [facility] [id number]
== END ==
PROVIDERS: Emergency Provider Emergency Medicine
DX: I46.9 Cardiac arrest, cause unspecified (principal)
CPT/HCPCS: 92950; 99291; J7030; A4216